=== PATIENT | male | born 1970 | race Caucasian/White ===

== ENCOUNTER 2017-08-02 08:34 | Day surgery (SDC) | payer OTHER ==
[2017-08-02] MEDS ORDERED: DiphenhydrAMINE 50 mg/ml Inj ONE (09:27)
[2017-08-02] MEDS ORDERED: Iodixanol 320 MG/ML 200 ML BOTTLE IV ONE (09:37)
[2017-08-02] MEDS ORDERED: Midazolam 2 MG/2 ML VIAL ONE ×2 (09:46→13:08)
[2017-08-02] MEDS ORDERED: Labetalol 25mg/5ml Syringe ONE (09:48)
[2017-08-02 10:27] VITALS: BMI 29.8
[2017-08-02] MEDS ORDERED: Iodixanol 320 MG/ML 100 ML BOTTLE IV ONE (13:08)
--- NOTE | 2017-08-03 09:26 | VAS ---
DATE: 08/02/2017 INDICATIONS: Mr. Kei Avila is a 46-year-old male who was admitted to [facility] from the wound care center for worsening gangrene of the left fifth digit. The patient underwent CTA which showed high grade disease at the popliteal, anterior tibial, and posterior tibial artery, and therefore brought to the cardiac catheterization technologist for further evaluation and treatment. PROCEDURE PERFORMED: Distal abdominal aortogram with bilateral iliac runoff, selective bilateral iliofemoral angiogram with runoff and right femoral arterial access, and Mynx closure device for hemostasis. ANGIOGRAPHIC FINDINGS: The right common iliac, external iliac is patent. Right profunda femoris is patent, SFA patent with diffuse calcification. Right popliteal artery is patent. Anterior tibial artery patent. Posterior tibial artery patent. Two-vessel runoff [id number] of AT and PT with patent dorsalis pedis arch. Left lower extremity, left common iliac patent. External iliac patent. Profunda femoris patent. SFA patent with moderate calcification. Popliteal artery is patent. Anterior tibial patent. Posterior tibial moderate diffuse disease. AT dorsalis pedis is patent with microvascular disease. IMPRESSION: Moderate calcified superficial femoral artery with no obstructive disease, history of microvascular disease. RECOMMENDATIONS: The patient can proceed with an amputation. Aggressive medical management and risk factor modification. Keep the patient on dual antiplatelet therapy. The patient can be transferred back to [facility] in 3 hours. Luiz Cortes MD
== END 2017-08-02 14:33 | disposition short-term general hospital (02) ==
LOC: C.CATHLAB 08:34
PROVIDERS: ATTEND Internal Medicine Interventional Cardiology
DX: I70.201 Unspecified atherosclerosis of native arteries of extremities, right leg (principal)
CPT/HCPCS: 36247; 75625; 75716; 75774; 82948; C1760; C1769; C1887; C1894; J0360; J1200; J1644; J2250; J2930; J3010; Q9966

== ENCOUNTER 2017-12-13 07:38 | Inpatient (IN) | payer MEDICARE, OTHER ==
[2017-12-13] MEDS ORDERED: Lidocaine 4% (Laryng-O-Jet) Kit MM ONE (08:14)
[2017-12-13 11:39] VITALS: BMI 30.2
[2017-12-13] MEDS ORDERED: Morphine 4 MG/ML VIAL ONE (12:57)
[2017-12-13] MEDS ORDERED: Midazolam 2 MG/2 ML VIAL ONE (12:58)
[2017-12-13] MEDS ORDERED: Lidocaine 2% MPF (5 ml) Inj ONE (13:46)
[2017-12-13] MEDS ORDERED: Iohexol 350mg/ml 100 ML ONE (13:47)
[2017-12-13] MEDS ORDERED: DiphenhydrAMINE 50 mg/ml Inj ONE (13:58)
[2017-12-13 14:37] LABS: ARTERIAL BLOOD GAS HCO3 22.8 mmol/L (21-28); ARTERIAL BLOOD GAS PCO2 27 mm/Hg (35-45); ARTERIAL BLOOD GAS PH 7.47 (7.35-7.45); ARTERIAL BLOOD GAS PO2 69 mm/Hg (80-100); ARTERIAL BLOOD GAS TCO2 20.5 mmol/L (22-28)
[2017-12-13 14:43] LABS: VENOUS BLOOD GAS BASE EXCESS -8.4 mmol/L (0.0-2.0); VENOUS BLOOD GAS PCO2 31 mmHg (40-60); VENOUS BLOOD GAS PO2 42 mm/Hg (30-55); VENOUS BLOOD PH 7.33 (7.32-7.43)
[2017-12-13 14:48] LABS: VENOUS BLOOD GAS BASE EXCESS -9.2 mmol/L (0.0-2.0); VENOUS BLOOD GAS PCO2 29 mmHg (40-60); VENOUS BLOOD GAS PO2 42 mm/Hg (30-55); VENOUS BLOOD PH 7.33 (7.32-7.43)
[2017-12-13 17:02] LABS: BASO # 0.1 K/uL (0.0-0.2); BASO % 0.4 % (0.0-2.0); EOS % 0.2 % (0.0-4.0); HEMOGLOBIN 11.5 g/dL (12.0-18.0); LYMPH # 1.6 K/uL (1.0-4.3); LYMPH % 7.7 % (20.0-40.0); MEAN CELL VOLUME 94.7 fL (80.0-94.0); MEAN CORPUSCULAR HEMOGLOBIN 31.3 pg (27.0-31.0); MEAN CORPUSCULAR HGB CONC 33.1 g/dL (33.0-37.0); MEAN PLATELET VOLUME 10.1 fL (7.2-11.7); MONO # 0.5 K/uL (0.0-0.8); MONO % 2.5 % (0.0-10.0); NEUT # 18.8 K/uL (1.8-7.0); NEUT % 89.2 % (50.0-75.0); NRBC % 0.1 % (0.0-2.0); PLATELET COUNT 178 K/uL (130-400); RBC 3.68 Mil/uL (4.40-5.90); RED CELL DISTRIBUTION WIDTH 15.9 % (11.5-14.5)
[2017-12-13] MEDS ORDERED: Glucagon Recombinant 1 mg Inj IM PRN (17:12)
[2017-12-13] MEDS ORDERED: Dextrose 50% SYRINGE Inj (50 ml) IV PRN (17:12)
[2017-12-13 17:15] LABS: WHITE BLOOD COUNT 21.1 K/uL (4.8-10.8)
--- NOTE | 2017-12-13 17:19 | CP.PCM.HP ---
<Carolina Edwards - Last Filed: 12/13/17 18:29> History of Present Illness - History of Present Illness History of Present Illness: Patient is a 47 yo male with a history of ESRD on HD (TTS), PVD, and T2DM presented to the ED at [facility] with body aches, cough, and nausea. He skipped 2 sessions of HD. He was found to be febrile (102). At [facility], he was being treated for MSSA bacteremia and elevated troponins with suspected endocarditis. He was transferred temporarily to [facility] for cath and KYLAH. Following these procedures, patient strained for BM and code blue was called due to pulseless Vtach. Patient achieved ROSC and became responsive following chest compressions and one defibrillator shock. PMH: ESRD on TTS T2DM- neuropathy PVD HTN Anemia Depression PSH: Right foot TMA Left 4th digit amputation RUE AV shunt Right eye surgery in 1999 Meds: ASA 81 mg PO daily Plavix 75 mg PO daily Metoprolol 25 mg PO daily All: shellfish SH: lives with family former smoker denies alcohol, illicit drug use FH: unknown Present on Admission - Present on Admission Any Indicators Present on Admission: Yes History of DVT/PE: No History of Uncontrolled Diabetes: Yes Urinary Catheter: No Decubitus Ulcer Present: No History Surgical Site Infection Following: None Past Patient History - Infectious Disease Hx of Infectious Diseases: None - Past Medical History & Family History Past Medical History?: Yes - Past Social History Smoking Status: Former Smoker Chewing Tobacco Use: No - CARDIAC Hx Congestive Heart Failure: No Hx Hypercholesterolemia: No Hx Hypertension: Yes - PULMONARY Hx Chronic Obstructive Pulmonary Disease (COPD): No - NEUROLOGICAL Hx Neurological Disorder: Yes Other/Comment: Hx Neuropathy - HEENT Hx HEENT Problems: Yes Hx Cataracts: Yes - RENAL Hx Chronic Kidney Disease: Yes - ENDOCRINE/METABOLIC Hx Hypothyroidism: No - HEMATOLOGICAL/ONCOLOGICAL Hx Human Immunodeficiency Virus (HIV): No - INTEGUMENTARY Hx Dermatological Problems: Yes Other/Comment: Hx Bilateral foot ulcers - MUSCULOSKELETAL/RHEUMATOLOGICAL Hx Arthritis: No Hx Rheumatoid Arthritis: No - GASTROINTESTINAL Hx Gastrointestinal Disorders: No - GENITOURINARY/GYNECOLOGICAL Hx Genitourinary Disorders: No - PSYCHIATRIC Hx Psychophysiologic Disorder: Yes Hx Depression: Yes Hx Substance Use: No - SURGICAL HISTORY Hx Surgeries: Yes Hx Amputation: Yes (Right TMA, Left 4th toe) Hx Cataract Extraction: Yes (Right eye - 2008) Hx Vascular Access Device: Yes (Right arm A-V fistula) Other/Comment: Hx of Insertion and removal of permacth for HD - ANESTHESIA Hx Anesthesia: Yes Hx Anesthesia Reactions: No Hx Malignant Hyperthermia: No Meds Allergies/Adverse Reactions: Allergies Allergy/AdvReac Type Severity Reaction Status Date / Time shellfish Allergy ITCHING Uncoded 12/06/17 05:22 Results - Labs Result Diagrams: 12/13/17 16:54 12/13/17 16:54 Labs: Laboratory Results - last 24 hr 12/13/17 12/13/17 12/13/17 14:33 14:40 14:44 WBC RBC Hgb Hct MCV MCH MCHC RDW Plt Count MPV Neut % (Auto) Lymph % (Auto) [place] % (Auto) Eos % (Auto) Baso % (Auto) Neut # (Auto) Lymph # (Auto) [place] # (Auto) Eos # (Auto) Baso # (Auto) Puncture Site Arterial pCO2 27 L pO2 69 L 42 42 HCO3 22.8 ABG pH 7.47 H ABG Total CO2 20.5 L ABG Base Excess -2.6 L Daniel Test Na VBG pH 7.33 7.33 VBG pCO2 31 L 29 L VBG HCO3 17.7 17.1 VBG Total CO2 17.3 L 16.2 L VBG O2 Sat (Calc) 75.4 H 77.6 H VBG Base Excess -8.4 L -9.2 L VBG Potassium 4.4 4.2 Sodium 136.0 140.0 Chloride 105.0 107.0 Glucose 76 74 L Lactate 1.3 1.3 POC Glucose (mg/dL) Venous Blood Potassium 4.4 4.2 12/13/17 12/13/17 15:03 16:54 WBC 21.1 H RBC 3.68 L Hgb 11.5 L Hct 34.9 L MCV 94.7 H MCH 31.3 H MCHC 33.1 RDW 15.9 H Plt Count 178 MPV 10.1 Neut % (Auto) 89.2 H Lymph % (Auto) 7.7 L [place] % (Auto) 2.5 Eos % (Auto) 0.2 Baso % (Auto) 0.4 Neut # (Auto) 18.8 H Lymph # (Auto) 1.6 [place] # (Auto) 0.5 Eos # (Auto) 0.0 Baso # (Auto) 0.1 Puncture Site pCO2 pO2 HCO3 ABG pH ABG Total CO2 ABG Base Excess Daniel Test VBG pH VBG pCO2 VBG HCO3 VBG Total CO2 VBG O2 Sat (Calc) VBG Base Excess VBG Potassium Sodium Chloride Glucose Lactate POC Glucose (mg/dL) 87 Venous Blood Potassium Assessment & Plan - Assessment and Plan (Free Text) Assessment: Patient is a 47 yo male with history ESRD on HD, T2DM, PVD, and HTN who was admitted to [facility] on 12/06/17 with generalized body aches, fever, and cough. He was found to be septic with positive blood cultures for MSSA. He was transferred to [facility] on 12/13 for cardiac cath due to elevated troponins. Following the completion of the cath, the patient went to have a BM and became unresponsive, pulseless with Vtach. Compressions were started and patient achieved ROSC after one shock. He will be monitored in the ICU at least overnight before transferring back to [facility]. Plan: V tach- s/p code blue following cardiac cath and KYLAH - Presently NSR - s/p cardiac cath on 12/13- 4 vessel disease - No EKG changes - TTE: EF 55-60% - KYLAH reading pending - Metoprolol 25 mg PO BID - ASA 81 mg PO daily - Plavix 75 mg PO daily - Monitor vitals- hypotensive, not on pressors - Cardiology consulted (Sebastian) Elevated troponins - Elevated troponins improving (0.139->0.873->.470) - Heparin drip- monitor PTT Sepsis- MSSA bacteremia, r/o endocarditis - Tmax 102.5- afebrile since 12/11 - Tylenol 650 mg PO Q6H PRN - No leukocytosis - ESR 114, CRP 159.2 - Procal 12.49 - Lactate 2.8 - Blood Cx: MSSA - KYLAH reading pending - Nafcillin 2 g IV Q6H - Vancomycin 1 g IV TTS after HD - ID consulted (Gabriela) Back pain, chronic - Lumbar MRI: L5-S1 disc degeneration, cannot exclude osteomyelitis (rec IV contrast but ESRD) - Pelvis, hip CT: no acute fx - Hip/pelvis XR: L inferior ramus fx - Tylenol 650 mg PO Q6H PRN ESRD on HD- patient missed 2 sessions prior to admission - I's & O's - CMP daily - Replete electrolytes PRN - HD on TTS- HD today 12/13 - Nephrology consulted (Adrian) T2DM- s/p R TMA, L 4th digit amputation - Maintain euglycemia - Hypoglycemic protocol - Accuchecks with ISS ACHS - Wound care consulted - Podiatry consulted (Ricardo) Anemia of chronic disease - Anemia- Hgb (11.5) at baseline - Monitor H&H PPx: VTE: heparin drip GI: PTX 40 mg IV daily Code status: full code Case discussed with attending, Dr. Palacios. PGY-1 Carolina Edwards D.O. Decision To Admit - . Bed Request Type: ICU Admitting Physician: Varun Palacios <Varun Palacios - Last Filed: 12/13/17 20:01> Results - Vital Signs Recent Vital Signs: Last Vital Signs Temp Pulse 78 12/13/17 17:19 Resp 16 12/13/17 17:19 BP 94/53 L 12/13/17 18:30 Pulse Ox 100 12/13/17 17:19 - Labs Result Diagrams: 12/13/17 16:54 12/13/17 16:54 Labs: Laboratory Results - last 24 hr 12/13/17 12/13/17 12/13/17 14:33 14:40 14:44 WBC RBC Hgb Hct MCV MCH MCHC RDW Plt Count MPV Neut % (Auto) Lymph % (Auto) [place] % (Auto) Eos % (Auto) Baso % (Auto) Neut # (Auto) Lymph # (Auto) [place] # (Auto) Eos # (Auto) Baso # (Auto) Neutrophils % (Manual) Band Neutrophils % Lymphocytes % (Manual) Monocytes % (Manual) Myelocytes % Platelet Estimate Anisocytosis (manual) PT INR APTT Puncture Site Arterial pCO2 27 L pO2 69 L 42 42 HCO3 22.8 ABG pH 7.47 H ABG Total CO2 20.5 L ABG Base Excess -2.6 L Daniel Test Na VBG pH 7.33 7.33 VBG pCO2 31 L 29 L VBG HCO3 17.7 17.1 VBG Total CO2 17.3 L 16.2 L VBG O2 Sat (Calc) 75.4 H 77.6 H VBG Base Excess -8.4 L -9.2 L VBG Potassium 4.4 4.2 Sodium 136.0 140.0 Chloride 105.0 107.0 Glucose 76 74 L Lactate 1.3 1.3 Potassium Carbon Dioxide Anion Gap BUN Creatinine Est GFR ( Amer) Est GFR (Non-Af Amer) POC Glucose (mg/dL) Random Glucose Calcium Total Bilirubin AST ALT Alkaline Phosphatase Troponin I Total Protein Albumin Globulin Albumin/Globulin Ratio Venous Blood Potassium 4.4 4.2 12/13/17 12/13/17 12/13/17 15:03 16:54 16:54 WBC RBC Hgb Hct MCV MCH MCHC RDW Plt Count MPV Neut % (Auto) Lymph % (Auto) [place] % (Auto) Eos % (Auto) Baso % (Auto) Neut # (Auto) Lymph # (Auto) [place] # (Auto) Eos # (Auto) Baso # (Auto) Neutrophils % (Manual) Band Neutrophils % Lymphocytes % (Manual) Monocytes % (Manual) Myelocytes % Platelet Estimate Anisocytosis (manual) PT 14.1 H INR 1.3 APTT 42 H Puncture Site pCO2 pO2 HCO3 ABG pH ABG Total CO2 ABG Base Excess Daniel Test VBG pH VBG pCO2 VBG HCO3 VBG Total CO2 VBG O2 Sat (Calc) VBG Base Excess VBG Potassium Sodium 134 Chloride 94 L Glucose Lactate Potassium 5.7 H Carbon Dioxide 17 L Anion Gap 29 H BUN 69 H Creatinine 9.5 H* Est GFR ( Amer) 7 Est GFR (Non-Af Amer) 6 POC Glucose (mg/dL) 87 Random Glucose 149 H Calcium 7.8 L Total Bilirubin 11.0 H AST 30 ALT 8 L Alkaline Phosphatase 211 H Troponin I Total Protein 7.7 Albumin 3.3 L Globulin 4.3 H Albumin/Globulin Ratio 0.8 L Venous Blood Potassium 12/13/17 12/13/17 16:54 16:57 WBC 21.1 H RBC 3.68 L Hgb 11.5 L Hct 34.9 L MCV 94.7 H MCH 31.3 H MCHC 33.1 RDW 15.9 H Plt Count 178 MPV 10.1 Neut % (Auto) 89.2 H Lymph % (Auto) 7.7 L [place] % (Auto) 2.5 Eos % (Auto) 0.2 Baso % (Auto) 0.4 Neut # (Auto) 18.8 H Lymph # (Auto) 1.6 [place] # (Auto) 0.5 Eos # (Auto) 0.0 Baso # (Auto) 0.1 Neutrophils % (Manual) 88 H Band Neutrophils % 3 H Lymphocytes % (Manual) 6 L Monocytes % (Manual) 2 Myelocytes % 1 H Platelet Estimate Normal Anisocytosis (manual) Slight PT INR APTT Puncture Site pCO2 pO2 HCO3 ABG pH ABG Total CO2 ABG Base Excess Daniel Test VBG pH VBG pCO2 VBG HCO3 VBG Total CO2 VBG O2 Sat (Calc) VBG Base Excess VBG Potassium Sodium Chloride Glucose Lactate Potassium Carbon Dioxide Anion Gap BUN Creatinine Est GFR ( Amer) Est GFR (Non-Af Amer) POC Glucose (mg/dL) Random Glucose Calcium Total Bilirubin AST ALT Alkaline Phosphatase Troponin I 0.4700 H* Total Protein Albumin Globulin Albumin/Globulin Ratio Venous Blood Potassium Attending/Attestation - Attestation I have personally seen and examined this patient.: Yes I have fully participated in the care of the patient.: Yes I have reviewed all pertinent clinical information: Yes Notes (Text): Patient was seen and examined in the ICU with the ICU resident Patient is alert and oriented x3.no focal weakness s/p Cardiac cath and KYLAH today. 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 He went into [place].Found unresponsive without pulse. one shock was give at 200J patient responded got pulse back. RR with acceptable BP.Patient started talking immediately after shock 1.VT ,pulseless/s/p shock with 200j once spoke to DR Cortes 2.S/p Cath today showed 4 vessel disease. s/p KYLAH to rule out vegetation 3.Staph MSSA bacteremia on nafcillin 2g q6 and vanco TIW after dialysis CT shows discitis,follow KYLAH report 4.Troponin elevation continue asprin,plavix,heparin and metoprolol 5.DM 6.anemia 7.ESRD on HD 8.Right foot TMA,left foot callus,blister left hand cellulitis/likely due to infiltrated IV line ? 9.anemia Assessment and the plan discussed with the resident and I agree with the documentation
[2017-12-13 17:20] LABS: INR 1.3; PROTHROMBIN TIME 14.1 SECONDS (9.7-12.2)
[2017-12-13] MEDS ORDERED: Heparin25000 units/250ml 1/2NS 25,000 UNITS/250 ML BAG IV PRN (17:20)
--- NOTE | 2017-12-13 17:23 | CP.PCM.CON ---
<JerryMaryCarolina - Last Filed: 12/13/17 17:59> History of Present Illness - History of Present Illness History of Present Illness: Patient is a 47 yo male with a history of ESRD on HD (TTS), PVD, and T2DM presented to the ED at [facility] with body aches, cough, and nausea. He skipped 2 sessions of HD. He was found to be febrile (102). At [facility], he was being treated for MSSA bacteremia and elevated troponins with suspected endocarditis. He was transferred temporarily to [facility] for cath and KYLA[facility]. Following these procedures, patient strained for BM and code blue was called due to pulseless Vtach. Patient achieved ROSC and became responsive following chest compressions and one defibrillator shock. 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 absent: Fever, Headache - EENT Eyes: absent: Change in Vision Ears: absent: Decreased Hearing Nose/Mouth/Throat: absent: Nasal Congestion, Sore Throat - Cardiovascular Cardiovascular: absent: Chest Pain, Dyspnea, Palpitations - Respiratory Respiratory: absent: Dyspnea - Gastrointestinal Gastrointestinal: absent: Abdominal Pain - Genitourinary Genitourinary: absent: Dysuria - Musculoskeletal Musculoskeletal: Back Pain - Integumentary Integumentary: absent: Lesions - Endocrine Endocrine: Fatigue Past Patient History - Infectious Disease Hx of Infectious Diseases: None - Past Medical History & Family History Past Medical History?: Yes Past Family History: Reviewed and not pertinent - Past Social History Smoking Status: Former Smoker Chewing Tobacco Use: No Cigar Use: No Alcohol: None Drugs: Denies Home Situation {Lives}: With Family - CARDIAC Hx Congestive Heart Failure: No Hx Hypercholesterolemia: No Hx Hypertension: Yes - PULMONARY Hx Chronic Obstructive Pulmonary Disease (COPD): No - NEUROLOGICAL Hx Neurological Disorder: Yes Other/Comment: Hx Neuropathy - HEENT Hx HEENT Problems: Yes Hx Cataracts: Yes - RENAL Hx Chronic Kidney Disease: Yes - ENDOCRINE/METABOLIC Hx Hypothyroidism: No - HEMATOLOGICAL/ONCOLOGICAL Hx Human Immunodeficiency Virus (HIV): No - INTEGUMENTARY Hx Dermatological Problems: Yes Other/Comment: Hx Bilateral foot ulcers - MUSCULOSKELETAL/RHEUMATOLOGICAL Hx Arthritis: No Hx Rheumatoid Arthritis: No - GASTROINTESTINAL Hx Gastrointestinal Disorders: No - GENITOURINARY/GYNECOLOGICAL Hx Genitourinary Disorders: No - PSYCHIATRIC Hx Psychophysiologic Disorder: Yes Hx Depression: Yes Hx Substance Use: No - SURGICAL HISTORY Hx Surgeries: Yes Hx Amputation: Yes (Right TMA, Left 4th toe) Hx Cataract Extraction: Yes (Right eye - 2008) Hx Vascular Access Device: Yes (Right arm A-V fistula) Other/Comment: Hx of Insertion and removal of permacth for HD - ANESTHESIA Hx Anesthesia: Yes Hx Anesthesia Reactions: No Hx Malignant Hyperthermia: No Meds Allergies/Adverse Reactions: Allergies Allergy/AdvReac Type Severity Reaction Status Date / Time shellfish Allergy ITCHING Uncoded 12/06/17 05:22 - Medications Medications: Current Medications Aspirin (Ecotrin) 81 mg PO DAILY LOYDA Clopidogrel Bisulfate (Plavix) 75 mg PO DAILY LOYDA Heparin Sodium/Sodium Chloride (Heparin 34149 Units/250ml 1/2 Normal Saline) 25,000 units in 250 mls @ 8.092 mls/hr IV .Q24H PRN; Protocol PRN Reason: PROTOCOL Physical Exam - Head Exam Head Exam: ATRAUMATIC, NORMAL INSPECTION, NORMOCEPHALIC - Eye Exam Eye Exam: EOMI, Normal appearance, PERRL - ENT Exam ENT Exam: Mucous Membranes Moist - Neck Exam Neck exam: Positive for: Normal Inspection - Respiratory Exam Respiratory Exam: Clear to Auscultation Bilateral, NORMAL BREATHING PATTERN - Cardiovascular Exam Cardiovascular Exam: REGULAR RHYTHM, +S1, +S2 - GI/Abdominal Exam GI & Abdominal Exam: Normal Bowel Sounds, Soft. absent: Tenderness - Rectal Exam Rectal Exam: NORMAL INSPECTION - Extremities Exam Additional comments: LUE edema, ecchymosis on dorsal surface of hand RUE AV fistula, 2 nodular elevations, nontender LLE L 4th digit amputation, R TMA b/l LE skin changes 2/2 PVD - Neurological Exam Neurological exam: Alert, CN II-XII Intact, Oriented x3 - Psychiatric Exam Psychiatric exam: Normal Affect, Normal Mood - Skin Skin Exam: Dry, Normal Color, Warm Results - Labs Result Diagrams: 12/13/17 16:54 12/13/17 16:54 Labs: Laboratory Results - last 24 hr 12/13/17 12/13/17 12/13/17 14:33 14:40 14:44 WBC RBC Hgb Hct MCV MCH MCHC RDW Plt Count MPV Neut % (Auto) Lymph % (Auto) Saline % (Auto) Eos % (Auto) Baso % (Auto) Neut # (Auto) Lymph # (Auto) Saline # (Auto) Eos # (Auto) Baso # (Auto) Puncture Site Arterial pCO2 27 L pO2 69 L 42 42 HCO3 22.8 ABG pH 7.47 H ABG Total CO2 20.5 L ABG Base Excess -2.6 L Daniel Test Na VBG pH 7.33 7.33 VBG pCO2 31 L 29 L VBG HCO3 17.7 17.1 VBG Total CO2 17.3 L 16.2 L VBG O2 Sat (Calc) 75.4 H 77.6 H VBG Base Excess -8.4 L -9.2 L VBG Potassium 4.4 4.2 Sodium 136.0 140.0 Chloride 105.0 107.0 Glucose 76 74 L Lactate 1.3 1.3 POC Glucose (mg/dL) Venous Blood Potassium 4.4 4.2 12/13/17 12/13/17 15:03 16:54 WBC 21.1 H RBC 3.68 L Hgb 11.5 L Hct 34.9 L MCV 94.7 H MCH 31.3 H MCHC 33.1 RDW 15.9 H Plt Count 178 MPV 10.1 Neut % (Auto) 89.2 H Lymph % (Auto) 7.7 L Saline % (Auto) 2.5 Eos % (Auto) 0.2 Baso % (Auto) 0.4 Neut # (Auto) 18.8 H Lymph # (Auto) 1.6 Saline # (Auto) 0.5 Eos # (Auto) 0.0 Baso # (Auto) 0.1 Puncture Site pCO2 pO2 HCO3 ABG pH ABG Total CO2 ABG Base Excess Daniel Test VBG pH VBG pCO2 VBG HCO3 VBG Total CO2 VBG O2 Sat (Calc) VBG Base Excess VBG Potassium Sodium Chloride Glucose Lactate POC Glucose (mg/dL) 87 Venous Blood Potassium Assessment & Plan - Assessment and Plan (Free Text) Assessment: Patient is a 47 yo male with history ESRD on HD, T2DM, PVD, and HTN who was admitted to [facility] on 12/06/17 with generalized body aches, fever, and cough. He was found to be septic with positive blood cultures for MSSA. He was transferred to [facility] on 12/13 for cardiac cath due to elevated troponins. Following the completion of the cath, the patient went to have a BM and became unresponsive, pulseless with Vtach. Compressions were started and patient achieved ROSC after one shock. He will be monitored in the ICU at least overnight before transferring back to [facility]. Plan: Neuro: - No acute issues- recent AMS during [facility] admission - CT head: no acute findings - Monitor mental status- post code blue CV: - s/p PARA EDUCATOR/code blue- Vtach - Elevated troponins improving (0.139->0.873->.470) - Heparin drip- monitor PTT - s/p cardiac cath on 12/13- 4 vessel disease - No EKG changes - TTE: EF 55-60% - KYLAH reading pending - Metoprolol 25 mg PO BID - ASA 81 mg PO daily - Plavix 75 mg PO daily - Monitor vitals- hypotensive, not on pressors - Cardiology consulted (Sebastian) Pulm: - CXR: - Maintain spO2>92%- supplemental O2 PRN - ABG : pH 7.26, pCO2 42, pO2 27, lactate 2.8 GI: - Heart healthy diet : - I's & O's - CMP daily - Replete electrolytes PRN - HD on TTS - Nephrology consulted (Adrian) Endo: - Maintain euglycemia - Hypoglycemic protocol - Accuchecks with ISS ACHS Heme: - Anemia- Hgb (11.5) at baseline - Monitor H&H ID: Sepsis (MSSA bacteremia)- r/o endocarditis - Tmax 102.5- afebrile since 12/11 - Tylenol 650 mg PO Q6H PRN - No leukocytosis - ESR 114, CRP 159.2 - Procal 12.49 - Lactate 2.8 - Blood Cx: MSSA - KYLAH reading pending - Nafcillin 2 g IV Q6H - Vancomycin 1 g IV TTS after HD - ID consulted (Gabriela) Integumentary: - Wound care consulted - Podiatry consulted (Ricardo) MSK: - Lumbar MRI: L5-S1 disc degeneration, cannot exclude osteomyelitis (rec IV contrast but ESRD) - Pelvis, hip CT: no acute fx - Hip/pelvis XR: L inferior ramus fx PPx: VTE: heparin drip GI: PTX 40 mg IV daily Code status: full code Case discussed with attending, Dr. Guillen. PGY-1 Carolnia Edwards D.O. <Charline Guillen - Last Filed: 12/13/17 19:32> Meds - Medications Medications: Current Medications Acetaminophen (Tylenol 325mg Tab) 650 mg PO Q6 PRN PRN Reason: Fever >100.4 F or Pain Aspirin (Ecotrin) 81 mg PO DAILY LOYDA Clopidogrel Bisulfate (Plavix) 75 mg PO DAILY [facility] Dextrose (Dextrose 50% Inj) 0 ml IV STAT PRN; Protocol PRN Reason: Hypoglycemia Protocol Dextrose (Glutose 15) 0 gm PO ONCE PRN; Protocol PRN Reason: Hypoglycemia Protocol Famotidine (Pepcid) 40 mg PO DAILY [facility] Heparin Sodium/Sodium Chloride (Heparin 14229 Units/250ml 1/2 Normal Saline) 25,000 units in 250 mls @ 8.092 mls/hr IV .Q24H PRN; Protocol PRN Reason: PROTOCOL Last Admin: 12/13/17 18:49 Dose: 8 units/kg/hr, 8.092 mls/hr Dextrose (Dextrose 5% In Water 1000 Ml) 1,000 mls @ 0 mls/hr IV .Q0M PRN; Protocol PRN Reason: Hypoglycemia Protocol Nafcillin Sodium 2 gm/ Sodium (Chloride) 250 mls @ 250 mls/hr IVPB Q6H LOYDA; Protocol Last Admin: 12/13/17 18:59 Dose: Not Given Vancomycin/Sodium Chloride (Vancomycin 1 Gm/Ns 200 Ml) 1 gm in 200 mls @ 133.333 mls/hr IVPB TTS LOYDA; Protocol Stop: 12/19/17 10:01 Insulin Human Regular (Novolin R) 0 unit SC ACHS [facility]; Protocol Metoprolol Tartrate (Lopressor) 25 mg PO BID [facility] Last Admin: 12/13/17 18:30 Dose: Not Given Sevelamer Carbonate (Renvela) 1,600 mg PO TIDCC [facility] Vitamin B Complex/Vit C/Folic Acid (Nephro-Joesph) 1 tab PO 0800 [facility] Results - Vital Signs Recent Vital Signs: Last Vital Signs Temp Pulse 78 12/13/17 17:19 Resp 16 12/13/17 17:19 BP 94/53 L 12/13/17 18:30 Pulse Ox 100 12/13/17 17:19 - Labs Result Diagrams: 12/13/17 16:54 12/13/17 16:54 Labs: Laboratory Results - last 24 hr 12/13/17 12/13/17 12/13/17 14:33 14:40 14:44 WBC RBC Hgb Hct MCV MCH MCHC RDW Plt Count MPV Neut % (Auto) Lymph % (Auto) Saline % (Auto) Eos % (Auto) Baso % (Auto) Neut # (Auto) Lymph # (Auto) Saline # (Auto) Eos # (Auto) Baso # (Auto) Neutrophils % (Manual) Band Neutrophils % Lymphocytes % (Manual) Monocytes % (Manual) Myelocytes % Platelet Estimate Anisocytosis (manual) PT INR APTT Puncture Site Arterial pCO2 27 L pO2 69 L 42 42 HCO3 22.8 ABG pH 7.47 H ABG Total CO2 20.5 L ABG Base Excess -2.6 L Daniel Test Na VBG pH 7.33 7.33 VBG pCO2 31 L 29 L VBG HCO3 17.7 17.1 VBG Total CO2 17.3 L 16.2 L VBG O2 Sat (Calc) 75.4 H 77.6 H VBG Base Excess -8.4 L -9.2 L VBG Potassium 4.4 4.2 Sodium 136.0 140.0 Chloride 105.0 107.0 Glucose 76 74 L Lactate 1.3 1.3 Potassium Carbon Dioxide Anion Gap BUN Creatinine Est GFR ( Amer) Est GFR (Non-Af Amer) POC Glucose (mg/dL) Random Glucose Calcium Total Bilirubin AST ALT Alkaline Phosphatase Troponin I Total Protein Albumin Globulin Albumin/Globulin Ratio Venous Blood Potassium 4.4 4.2 12/13/17 12/13/17 12/13/17 15:03 16:54 16:54 WBC RBC Hgb Hct MCV MCH MCHC RDW Plt Count MPV Neut % (Auto) Lymph % (Auto) Saline % (Auto) Eos % (Auto) Baso % (Auto) Neut # (Auto) Lymph # (Auto) Saline # (Auto) Eos # (Auto) Baso # (Auto) Neutrophils % (Manual) Band Neutrophils % Lymphocytes % (Manual) Monocytes % (Manual) Myelocytes % Platelet Estimate Anisocytosis (manual) PT 14.1 H INR 1.3 APTT 42 H Puncture Site pCO2 pO2 HCO3 ABG pH ABG Total CO2 ABG Base Excess Daniel Test VBG pH VBG pCO2 VBG HCO3 VBG Total CO2 VBG O2 Sat (Calc) VBG Base Excess VBG Potassium Sodium 134 Chloride 94 L Glucose Lactate Potassium 5.7 H Carbon Dioxide 17 L Anion Gap 29 H BUN 69 H Creatinine 9.5 H* Est GFR ( Amer) 7 Est GFR (Non-Af Amer) 6 POC Glucose (mg/dL) 87 Random Glucose 149 H Calcium 7.8 L Total Bilirubin 11.0 H AST 30 ALT 8 L Alkaline Phosphatase 211 H Troponin I Total Protein 7.7 Albumin 3.3 L Globulin 4.3 H Albumin/Globulin Ratio 0.8 L Venous Blood Potassium 12/13/17 12/13/17 16:54 16:57 WBC 21.1 H RBC 3.68 L Hgb 11.5 L Hct 34.9 L MCV 94.7 H MCH 31.3 H MCHC 33.1 RDW 15.9 H Plt Count 178 MPV 10.1 Neut % (Auto) 89.2 H Lymph % (Auto) 7.7 L Saline % (Auto) 2.5 Eos % (Auto) 0.2 Baso % (Auto) 0.4 Neut # (Auto) 18.8 H Lymph # (Auto) 1.6 Saline # (Auto) 0.5 Eos # (Auto) 0.0 Baso # (Auto) 0.1 Neutrophils % (Manual) 88 H Band Neutrophils % 3 H Lymphocytes % (Manual) 6 L Monocytes % (Manual) 2 Myelocytes % 1 H Platelet Estimate Normal Anisocytosis (manual) Slight PT INR APTT Puncture Site pCO2 pO2 HCO3 ABG pH ABG Total CO2 ABG Base Excess Daniel Test VBG pH VBG pCO2 VBG HCO3 VBG Total CO2 VBG O2 Sat (Calc) VBG Base Excess VBG Potassium Sodium Chloride Glucose Lactate Potassium Carbon Dioxide Anion Gap BUN Creatinine Est GFR ( Amer) Est GFR (Non-Af Amer) POC Glucose (mg/dL) Random Glucose Calcium Total Bilirubin AST ALT Alkaline Phosphatase Troponin I 0.4700 H* Total Protein Albumin Globulin Albumin/Globulin Ratio Venous Blood Potassium Attending/Attestation - Attestation I have personally seen and examined this patient.: Yes I have fully participated in the care of the patient.: Yes I have reviewed all pertinent clinical information: Yes Notes (Text): 12/13/17 19:32 admit to icu betablocker cardio f/u renal f/u
--- NOTE | 2017-12-13 17:26 | PCM.RRT ---
<Raciel Ackerman - Last Filed: 12/13/17 17:24> - Constitutional Appears: In Acute Distress - Head Head Exam: ATRAUMATIC, NORMAL INSPECTION - Eyes Eye Exam: EOMI, Normal appearance - Respiratory Exam Respiratory Exam: Clear to Ausculation Bilateral. absent: Rhonchi, Wheezes - Cardiovascular Exam Cardiovascular Exam: Tachycardia, +S1, +S2. absent: Murmur - GI/Abdominal Exam GI & Abdominal Exam: Soft. absent: Tenderness - Neurological Exam Neurological Exam: Alert, Awake, CN II-XII Intact - Extremities Exam Extremities Exam: absent: Pedal Edema, Tenderness Plan - Assessment of Findings&Treatment Plan JAVA ANDROID DEVELOPER called 16: 32 Vitals on arrival: 213/113 HR 113 100% on NRB Afebrile JAVA ANDROID DEVELOPER was called which subsequently was called as a code blue at 16:32. Patient had just come out of the wastewater analyst lab analyst and stated that he need to have a bowel movement. Cath nurse placed commode on patient's bed and once the patient began to strain he subsequently was found to be in V tach on the cardiac exercise physiologist. As soon as the monitor showed V tach, the patient began shaking Patient was unresponsive, not breathing, and pulseless. Compressions were begun immediately and AICD pads applied. Once defibrillator registered a shockable rhythm, compressions were halted and shock was applied. Following shock, patient immediately achieved ROSC. By the time JAVA ANDROID DEVELOPER team arrived to the scene, the patient was responsive and following commands. Labs were ordered including VBG shock panel, CBC, CMP, mag, and phos. Patient was moved to the ICU for further care and monitoring. <Varun Palacios - Last Filed: 12/13/17 20:01> Attending/Attestation - Attestation I have personally seen and examined this patient.: Yes I have fully participated in the care of the patient.: Yes I have reviewed all pertinent clinical information, including history, physical exam and plan: Yes
[2017-12-13 17:27] LABS: ALB/GLOB RATIO 0.8 (1.0-2.1); ALBUMIN 3.3 g/dL (3.5-5.0); CALCIUM 7.8 mg/dl (8.6-10.4)
[2017-12-13 17:37] LABS: BANDS 3 % (0-2); LYMPHOCYTE 6 % (20-40); MONOCYTE 2 % (0-10); MYELOCYTE 1 % (0-0); NEUTROPHIL 88 % (50-75); PLATELET ESTIMATE NORMAL (NORMAL); TOTAL CELLS COUNTED 100
[2017-12-13 17:39] LABS: ANISOCYTOSIS SLIGHT
[2017-12-13] MEDS ORDERED: Glucagon Recombinant 1 mg Inj IM ONE (17:45)
--- NOTE | 2017-12-13 18:19 | RAD ---
HISTORY: post cardiac arrest COMPARISON: No prior. TECHNIQUE: Chest, one view. FINDINGS: LUNGS: Central vascular prominence. Suspect patchy infiltrate or atelectasis at the right hilar/infrahilar region. Mild pulmonary venous congestion. Please note that chest x-ray has limited sensitivity for the detection of pulmonary masses. PLEURA: No significant pleural effusion identified. No definite pneumothorax . CARDIOVASCULAR: Cardiomegaly. No significant atherosclerotic calcification present. OSSEOUS STRUCTURES: No acute osseous abnormality identified. VISUALIZED UPPER ABDOMEN: Unremarkable. OTHER FINDINGS: None. IMPRESSION: Cardiomegaly. Central vascular prominence. Mild pulmonary venous congestion. Suspect patchy infiltrate or atelectasis at the right hilar/infrahilar region.
[2017-12-13] MEDS: (Novolin R) Insulin Human Regular 100 units/ml vial SC SCH (22:00)
[2017-12-14] MEDS: Heparin25000 units/250ml 1/2NS 25,000 UNITS/250 ML BAG IV PRN ×2 (01:28→18:33)
--- NOTE | 2017-12-14 04:32 | PCM.FALL ---
Post Fall Progress Note - Post Fall Fall Date: 12/14/17 Fall Time: 04:05 Description of Fall: Patient woke up thinking he was at home and attempted to get out of bed when his IV lines prevented him from doing so. Patient then slid from his bed down to the floor onto his buttock. Patient denies dizziness, lightheadedness, chest pain, shortness of breath, confusion, head trauma. - Post Fall Exam Vital Sign: Temp Pulse Resp BP Pulse Ox 97.9 F 78 17 108/68 85 L 12/14/17 00:00 12/14/17 03:00 12/14/17 03:00 12/14/17 00:16 12/14/17 02:00 Skull Exam: Negative for: Scalp wound, Scalp hematoma Eye Exam: Positive for: Pupils equal (constricted, but equal), Pupils reactive Ear Exam: Negative for: Discharge Nose Exam: Negative for: Discharge, Bleeding Skin Exam: Positive for: Bruising (old brusing to R flank). Negative for: Colour, Lacerations, Grazes Mouth Exam: Negative for: Tongue bitten, Teeth dislodge Neck Exam: Negative for: Tenderness, Tingling, Weakness Spinal Exam: Negative for: Tenderness, Tingling, Weakness Chest Exam: Negative for: Difficulty breathing, Tenderness in collar bones, Tenderness in ribs Abdomen Exam: Negative for: Tenderness Pelvic Exam: Positive for: Tenderness (tenderness to palpation of R buttock. No ecchymoses, laceration, abrasion, or lession noted). Negative for: Hematuria Arm Exam: Negative for: Deformity, Alteration in range of movement Leg Exam: Positive for: Deformity (s/p R partial foot amputation). Negative for: Alteration in range of movement Impression/Plan: House doctor note. Mitchel star was called for patient at 4:05AM. Nurse heard a mild thump and discovered patient sitting on floor with back against his bed by nurse. Initial vitals: 82 HR, BP 114/71, RR 10 O2 saturation 98% on room air. Patient states he awoke thinking he was at home and attempted to get out of bed when his IV lines pulled him back from getting up. Patient then slid from his bed down to the floor onto his buttock. Patient denies head trauma, loss of consciousness, dizziness, and lightheadedness.
--- NOTE | 2017-12-14 06:53 | CARDCATH ---
PROCEDURE DATE: 12/13/2017 INDICATIONS: Mr. Avila is a 47-year-old male who presented to [facility] with complaints of low back pain. The patient was bacteremic with Staph aureus bacteremia and was concerned for possible endocarditis. He was initiated on IV antibiotics and had non-ST elevation CT with positive troponins. He was therefore brought to the laboratory animal caretaker for further evaluation and treatment. PROCEDURE PERFORMED: Complete heart catheterization with right and left heart catheterizations. Right heart catheterization with hemodynamics. Left heart catheterization with selective left and right coronary angiogram, left ventriculogram, 6-[place] Islander right femoral arterial access, 7-[place] Islander right femoral venous access, Mynx closure device for hemostasis. HEMODYNAMIC FINDINGS. The right atrial mean pressure is 25 mmHg, RV is 74/10 with RVEDP of 25, pulmonary artery pressure is with a mean of 38. Pulmonary capillary wedge pressure was 37. CORONARY ANATOMY: Left main is a large-sized vessel that bifurcates into LAD and circumflex. Left main has a distal calcific 50% stenosis. LAD is diffusely calcified, proximal high grade 70% to 80% with a mid high grade 95% stenosis. Left circumflex runs in the AV groove, has proximal 60% stenosis, RCA is diffusely calcified, distal 55% stenosis, LVEF 45%. IMPRESSION: Severe left anterior descending calcified stenosis, moderate proximal circumflex disease, moderate distal right coronary artery disease, mild left ventricular systolic dysfunction. RECOMMENDATIONS: The patient is to be transferred back to [facility]. No evidence of vegetations was diagnosed on the KYLAH. Cardiac cath reveals severely elevated filling pressure, mild LV systolic dysfunction, severe LAD calcified stenosis. The patient is to be scheduled for staged intervention of the LAD using atherectomy device. Luiz Cortes MD
[2017-12-14 07:34] LABS: BASO # 0.1 K/uL (0.0-0.2); BASO % 0.5 % (0.0-2.0); HEMOGLOBIN 9.9 g/dL (12.0-18.0); LYMPH # 0.6 K/uL (1.0-4.3); LYMPH % 4.1 % (20.0-40.0); MEAN CELL VOLUME 93.5 fL (80.0-94.0); MEAN CORPUSCULAR HEMOGLOBIN 32.2 pg (27.0-31.0); MEAN CORPUSCULAR HGB CONC 34.5 g/dL (33.0-37.0); MEAN PLATELET VOLUME 9.8 fL (7.2-11.7); MONO # 0.7 K/uL (0.0-0.8); MONO % 4.3 % (0.0-10.0); NEUT % 91.1 % (50.0-75.0); PLATELET COUNT 160 K/uL (130-400); RBC 3.08 Mil/uL (4.40-5.90); RED CELL DISTRIBUTION WIDTH 15.6 % (11.5-14.5); WHITE BLOOD COUNT 15.4 K/uL (4.8-10.8)
[2017-12-14] MEDS: (Novolin R) Insulin Human Regular 100 units/ml vial SC SCH ×4 (07:41→21:18)
[2017-12-14] MEDS: Multivitamin Vitamin B Complex (Nephro-Vite) Tab PO SCH (07:42)
--- NOTE | 2017-12-14 07:42 | RAD ---
Date of service: 12/14/2017 PROCEDURE: Radiographs of the pelvis. HISTORY: s/p fall COMPARISON: None. FINDINGS: BONES: Pelvic Bones: Unremarkable. Hips: Grossly unremarkable. JOINTS: Sacroiliac Joints: Unremarkable. Pubic Symphysis: Unremarkable. Bilateral hip arthrosis. OTHER FINDINGS: L5-S1 facet hypertrophic and sclerotic arthrosis noted. Stool retention. Atherosclerotic vascular calcifications present. IMPRESSION: No fracture or dislocation appreciated. Other findings as above.
[2017-12-14 07:50] LABS: INR 1.3; PROTHROMBIN TIME 14.1 SECONDS (9.7-12.2)
--- NOTE | 2017-12-14 08:21 | CP.CCUPN ---
<Carolina Edwards - Last Filed: 12/14/17 13:09> CCU Subjective - Physician Review Events Since Last Encounter (Free Text): 12/14/17 08:19 code star over night- patient slid out of bed, thought he was home, no injuries Subjective (Free Text): 12/14/17 08:20 Patient was seen and examined this morning. No acute complaints. no chest pain. Chronic back pain. Patient may transfer to [place] for heart surgery. Critical Care Time Spent (in minutes): 35 CCU Objective - Vital Signs / Intake & Output Vital Signs (Last 4 hours): Vital Signs Temp Pulse Resp BP Pulse Ox 12/14/17 08:00 97.4 F L 98 12/14/17 07:51 63 12 95/53 L 99 12/14/17 07:50 63 12 100 12/14/17 07:40 61 13 99 12/14/17 07:39 61 13 98 12/14/17 07:37 62 13 100 12/14/17 07:30 62 17 97 12/14/17 07:20 60 14 98 12/14/17 07:10 59 L 12 98 12/14/17 07:00 60 13 98 12/14/17 06:40 63 11 L 100 12/14/17 06:30 73 17 98 12/14/17 06:20 71 16 93 L 12/14/17 06:10 75 14 91 L 12/14/17 06:00 76 15 98 12/14/17 05:50 79 14 98 12/14/17 05:45 79 15 98/62 L 95 12/14/17 05:40 79 13 98 12/14/17 05:30 79 16 98 12/14/17 05:20 79 16 95 12/14/17 05:10 79 19 95 12/14/17 05:00 80 11 L 97 12/14/17 04:50 79 16 97 12/14/17 04:40 81 17 96 12/14/17 04:30 82 13 96 12/14/17 04:20 84 15 114/71 Intake and Output (Last 8hrs): Intake & Output 12/13/17 12/14/17 12/14/17 22:59 06:59 14:59 Intake Total 42 454.5 70.2 Output Total 0 0 Balance 42 454.5 70.2 Weight 109 lb 12.8 oz 232 lb 3.2 oz Intake: Intake, IV Amount 42 334.5 20.2 Left Antecubital 42 84.5 20.2 left ac 2nd port 250 Oral 0 120 50 Output: Urine 0 Urine, Voided 0 Emesis 0 Other: Voiding Method Urinal # Voids Urine, Voided 0 0 # Bowel Movements 0 0 - Physical Exam Head: Positive for: Atraumatic, Normocephalic Pupils: Positive for: PERRL Extroacular Muscles: Positive for: EOMI Conjunctiva: Positive for: Normal Mouth: Positive for: Moist Mucous Membranes Neck: Positive for: Normal Range of Motion Respiratory/Chest: Positive for: Clear to Auscultation, Good Air Exchange. Negative for: Respiratory Distress, Accessory Muscle Use Cardiovascular: Positive for: Regular Rate and Rhythm, Normal S1, S2. Negative for: Murmurs Abdomen: Negative for: Tenderness, Distention, Peritoneal Signs Upper Extremity: Positive for: Other (LUE edema, ecchymosis on dorsal surface of hand, RUE AV fistula, 2 nodular elevations, nontender) Lower Extremity: Positive for: Other (LLE L 4th digit amputation, R TMA, b/l LE skin changes 2/2 PVD) Neurological: Positive for: GCS=15, CN II-XII Intact, Speech Normal Skin: Positive for: Warm, Dry, Normal Color. Negative for: Rashes - Medications Active Medications: Active Medications Generic Name Dose Route Start Last Admin Trade Name Freq PRN Reason Stop Dose Admin Acetaminophen 650 mg 12/13/17 17:42 12/14/17 04:33 Tylenol 325mg Tab PO 650 mg Q6 PRN Administration Fever >100.4 F or Pain Aspirin 81 mg 12/14/17 10:00 Ecotrin PO DAILY LOYDA Clopidogrel Bisulfate 75 mg 12/14/17 10:00 Plavix PO DAILY LOYDA Dextrose 0 ml 12/13/17 17:12 Dextrose 50% Inj IV STAT PRN Hypoglycemia Protocol Protocol Dextrose 0 gm 12/13/17 17:12 Glutose 15 PO ONCE PRN Hypoglycemia Protocol Protocol Famotidine 40 mg 12/14/17 10:00 Pepcid PO DAILY LOYDA Dextrose 1,000 mls @ 0 mls/hr 12/13/17 17:25 Dextrose 5% In Water 1000 Ml IV .Q0M PRN Hypoglycemia Protocol Protocol Per Protocol Nafcillin Sodium 2 gm/ Sodium 250 mls @ 250 mls/hr 12/13/17 18:30 12/14/17 05:47 Chloride IVPB 250 mls/hr Q6H LOYDA Administration Protocol Vancomycin/Sodium Chloride 1 gm in 200 mls @ 133.333 mls/hr 12/14/17 10:00 Vancomycin 1 Gm/Ns 200 Ml IVPB 12/19/17 10:01 TTS LOYDA Protocol Heparin Sodium/Sodium Chloride 25,000 units in 250 mls @ 10.115 mls/hr 12/14/17 01:30 12/14/17 01:28 Heparin 48126 Units/250ml 1/2 Normal Saline IV 10 units/kg/hr .Q24H PRN 10.115 mls/hr PROTOCOL Administration Protocol 10 UNITS/KG/HR Insulin Human Regular 0 unit 12/13/17 22:00 12/14/17 07:41 Novolin R SC Not Given ACHS [facility] Protocol Metoprolol Tartrate 25 mg 12/13/17 18:00 12/13/17 18:30 Lopressor PO Not Given BID LOYDA Sevelamer Carbonate 1,600 mg 12/14/17 08:00 12/14/17 07:41 Renvela PO 1,600 mg TIDCC LOYDA Administration Vitamin B Complex/Vit C/Folic Acid 1 tab 12/14/17 08:00 12/14/17 07:42 Nephro-Joesph PO 1 tab 0800 LOYDA Administration - Patient Studies Lab Studies: Lab Studies 12/14/17 12/14/17 12/14/17 Range/Units 07:20 07:20 07:20 WBC 15.4 H (4.8-10.8) K/uL RBC 3.08 L (4.40-5.90) Mil/uL Hgb 9.9 L (12.0-18.0) g/dL Hct 28.8 L (35.0-51.0) % MCV 93.5 (80.0-94.0) fL MCH 32.2 H (27.0-31.0) pg MCHC 34.5 (33.0-37.0) g/dL RDW 15.6 H (11.5-14.5) % Plt Count 160 (130-400) K/uL MPV 9.8 (7.2-11.7) fL Neut % (Auto) 91.1 H (50.0-75.0) % Lymph % (Auto) 4.1 L (20.0-40.0) % [place] % (Auto) 4.3 (0.0-10.0) % Eos % (Auto) 0.0 (0.0-4.0) % Baso % (Auto) 0.5 (0.0-2.0) % Neut # (Auto) 14.0 H (1.8-7.0) K/uL Lymph # (Auto) 0.6 L (1.0-4.3) K/uL [place] # (Auto) 0.7 (0.0-0.8) K/uL Eos # (Auto) 0.0 (0.0-0.7) K/uL Baso # (Auto) 0.1 (0.0-0.2) K/uL Neutrophils % (Manual) (50-75) % Band Neutrophils % (0-2) % Lymphocytes % (Manual) (20-40) % Monocytes % (Manual) (0-10) % Myelocytes % (0-0) % Platelet Estimate (NORMAL) Anisocytosis (manual) PT 14.1 H (9.7-12.2) SECONDS INR 1.3 APTT 46 H (21-34) SECONDS Puncture Site pCO2 (35-45) mm/Hg pO2 (80-100) mm/Hg HCO3 (21-28) mmol/L ABG pH (7.35-7.45) ABG Total CO2 (22-28) mmol/L ABG Base Excess (-2.0-3.0) mmol/L Daniel Test VBG pH (7.32-7.43) VBG pCO2 (40-60) mmHg VBG HCO3 mmol/L VBG Total CO2 (22-28) mmol/L VBG O2 Sat (Calc) (40-65) % VBG Base Excess (0.0-2.0) mmol/L VBG Potassium (3.6-5.2) mmol/L Sodium (132-148) mmol/l Chloride (98-107) mmol/L Glucose (75-110) mg/dl Lactate (0.7-2.1) mmol/L Potassium (3.6-5.2) mmol/L Carbon Dioxide (22-30) mmol/L Anion Gap (10-20) BUN (9-20) mg/dL Creatinine (0.8-1.5) mg/dL Est GFR ( Amer) Est GFR (Non-Af Amer) POC Glucose (mg/dL) (65-110) mg/dL Random Glucose (75-110) mg/dL Calcium (8.6-10.4) mg/dl Phosphorus 8.7 H (2.5-4.5) mg/dL Magnesium 2.6 H (1.6-2.3) mg/dL Total Bilirubin (0.2-1.3) mg/dL AST (17-59) U/L ALT (21-72) U/L Alkaline Phosphatase (38-126) U/L Troponin I (0.00-0.120) ng/mL Total Protein (6.3-8.3) g/dL Albumin (3.5-5.0) g/dL Globulin (2.2-3.9) gm/dL Albumin/Globulin Ratio (1.0-2.1) Venous Blood Potassium (3.6-5.2) mmol/L 12/13/17 12/13/17 12/13/17 Range/Units 23:56 23:42 16:57 WBC (4.8-10.8) K/uL RBC (4.40-5.90) Mil/uL Hgb (12.0-18.0) g/dL Hct (35.0-51.0) % MCV (80.0-94.0) fL MCH (27.0-31.0) pg MCHC (33.0-37.0) g/dL RDW (11.5-14.5) % Plt Count (130-400) K/uL MPV (7.2-11.7) fL Neut % (Auto) (50.0-75.0) % Lymph % (Auto) (20.0-40.0) % [place] % (Auto) (0.0-10.0) % Eos % (Auto) (0.0-4.0) % Baso % (Auto) (0.0-2.0) % Neut # (Auto) (1.8-7.0) K/uL Lymph # (Auto) (1.0-4.3) K/uL [place] # (Auto) (0.0-0.8) K/uL Eos # (Auto) (0.0-0.7) K/uL Baso # (Auto) (0.0-0.2) K/uL Neutrophils % (Manual) (50-75) % Band Neutrophils % (0-2) % Lymphocytes % (Manual) (20-40) % Monocytes % (Manual) (0-10) % Myelocytes % (0-0) % Platelet Estimate (NORMAL) Anisocytosis (manual) PT (9.7-12.2) SECONDS INR APTT 44 H (21-34) SECONDS Puncture Site pCO2 (35-45) mm/Hg pO2 (80-100) mm/Hg HCO3 (21-28) mmol/L ABG pH (7.35-7.45) ABG Total CO2 (22-28) mmol/L ABG Base Excess (-2.0-3.0) mmol/L Daniel Test VBG pH (7.32-7.43) VBG pCO2 (40-60) mmHg VBG HCO3 mmol/L VBG Total CO2 (22-28) mmol/L VBG O2 Sat (Calc) (40-65) % VBG Base Excess (0.0-2.0) mmol/L VBG Potassium (3.6-5.2) mmol/L Sodium (132-148) mmol/l Chloride (98-107) mmol/L Glucose (75-110) mg/dl Lactate (0.7-2.1) mmol/L Potassium (3.6-5.2) mmol/L Carbon Dioxide (22-30) mmol/L Anion Gap (10-20) BUN (9-20) mg/dL Creatinine (0.8-1.5) mg/dL Est GFR ( Amer) Est GFR (Non-Af Amer) POC Glucose (mg/dL) 127 H (65-110) mg/dL Random Glucose (75-110) mg/dL Calcium (8.6-10.4) mg/dl Phosphorus (2.5-4.5) mg/dL Magnesium (1.6-2.3) mg/dL Total Bilirubin (0.2-1.3) mg/dL AST (17-59) U/L ALT (21-72) U/L Alkaline Phosphatase (38-126) U/L Troponin I 0.4700 H* (0.00-0.120) ng/mL Total Protein (6.3-8.3) g/dL Albumin (3.5-5.0) g/dL Globulin (2.2-3.9) gm/dL Albumin/Globulin Ratio (1.0-2.1) Venous Blood Potassium (3.6-5.2) mmol/L 12/13/17 12/13/17 12/13/17 Range/Units 16:54 16:54 16:54 WBC 21.1 H (4.8-10.8) K/uL RBC 3.68 L (4.40-5.90) Mil/uL Hgb 11.5 L (12.0-18.0) g/dL Hct 34.9 L (35.0-51.0) % MCV 94.7 H (80.0-94.0) fL MCH 31.3 H (27.0-31.0) pg MCHC 33.1 (33.0-37.0) g/dL RDW 15.9 H (11.5-14.5) % Plt Count 178 (130-400) K/uL MPV 10.1 (7.2-11.7) fL Neut % (Auto) 89.2 H (50.0-75.0) % Lymph % (Auto) 7.7 L (20.0-40.0) % [place] % (Auto) 2.5 (0.0-10.0) % Eos % (Auto) 0.2 (0.0-4.0) % Baso % (Auto) 0.4 (0.0-2.0) % Neut # (Auto) 18.8 H (1.8-7.0) K/uL Lymph # (Auto) 1.6 (1.0-4.3) K/uL [place] # (Auto) 0.5 (0.0-0.8) K/uL Eos # (Auto) 0.0 (0.0-0.7) K/uL Baso # (Auto) 0.1 (0.0-0.2) K/uL Neutrophils % (Manual) 88 H (50-75) % Band Neutrophils % 3 H (0-2) % Lymphocytes % (Manual) 6 L (20-40) % Monocytes % (Manual) 2 (0-10) % Myelocytes % 1 H (0-0) % Platelet Estimate Normal (NORMAL) Anisocytosis (manual) Slight PT 14.1 H (9.7-12.2) SECONDS INR 1.3 APTT 42 H (21-34) SECONDS Puncture Site pCO2 (35-45) mm/Hg pO2 (80-100) mm/Hg HCO3 (21-28) mmol/L ABG pH (7.35-7.45) ABG Total CO2 (22-28) mmol/L ABG Base Excess (-2.0-3.0) mmol/L Daniel Test VBG pH (7.32-7.43) VBG pCO2 (40-60) mmHg VBG HCO3 mmol/L VBG Total CO2 (22-28) mmol/L VBG O2 Sat (Calc) (40-65) % VBG Base Excess (0.0-2.0) mmol/L VBG Potassium (3.6-5.2) mmol/L Sodium 134 (132-148) mmol/l Chloride 94 L (98-107) mmol/L Glucose (75-110) mg/dl Lactate (0.7-2.1) mmol/L Potassium 5.7 H (3.6-5.2) mmol/L Carbon Dioxide 17 L (22-30) mmol/L Anion Gap 29 H (10-20) BUN 69 H (9-20) mg/dL Creatinine 9.5 H* (0.8-1.5) mg/dL Est GFR ( Amer) 7 Est GFR (Non-Af Amer) 6 POC Glucose (mg/dL) (65-110) mg/dL Random Glucose 149 H (75-110) mg/dL Calcium 7.8 L (8.6-10.4) mg/dl Phosphorus (2.5-4.5) mg/dL Magnesium (1.6-2.3) mg/dL Total Bilirubin 11.0 H (0.2-1.3) mg/dL AST 30 (17-59) U/L ALT 8 L (21-72) U/L Alkaline Phosphatase 211 H (38-126) U/L Troponin I (0.00-0.120) ng/mL Total Protein 7.7 (6.3-8.3) g/dL Albumin 3.3 L (3.5-5.0) g/dL Globulin 4.3 H (2.2-3.9) gm/dL Albumin/Globulin Ratio 0.8 L (1.0-2.1) Venous Blood Potassium (3.6-5.2) mmol/L 12/13/17 12/13/17 12/13/17 Range/Units 15:03 14:44 14:40 WBC (4.8-10.8) K/uL RBC (4.40-5.90) Mil/uL Hgb (12.0-18.0) g/dL Hct (35.0-51.0) % MCV (80.0-94.0) fL MCH (27.0-31.0) pg MCHC (33.0-37.0) g/dL RDW (11.5-14.5) % Plt Count (130-400) K/uL MPV (7.2-11.7) fL Neut % (Auto) (50.0-75.0) % Lymph % (Auto) (20.0-40.0) % [place] % (Auto) (0.0-10.0) % Eos % (Auto) (0.0-4.0) % Baso % (Auto) (0.0-2.0) % Neut # (Auto) (1.8-7.0) K/uL Lymph # (Auto) (1.0-4.3) K/uL [place] # (Auto) (0.0-0.8) K/uL Eos # (Auto) (0.0-0.7) K/uL Baso # (Auto) (0.0-0.2) K/uL Neutrophils % (Manual) (50-75) % Band Neutrophils % (0-2) % Lymphocytes % (Manual) (20-40) % Monocytes % (Manual) (0-10) % Myelocytes % (0-0) % Platelet Estimate (NORMAL) Anisocytosis (manual) PT (9.7-12.2) SECONDS INR APTT (21-34) SECONDS Puncture Site pCO2 (35-45) mm/Hg pO2 42 42 (80-100) mm/Hg HCO3 (21-28) mmol/L ABG pH (7.35-7.45) ABG Total CO2 (22-28) mmol/L ABG Base Excess (-2.0-3.0) mmol/L Daniel Test VBG pH 7.33 7.33 (7.32-7.43) VBG pCO2 29 L 31 L (40-60) mmHg VBG HCO3 17.1 17.7 mmol/L VBG Total CO2 16.2 L 17.3 L (22-28) mmol/L VBG O2 Sat (Calc) 77.6 H 75.4 H (40-65) % VBG Base Excess -9.2 L -8.4 L (0.0-2.0) mmol/L VBG Potassium 4.2 4.4 (3.6-5.2) mmol/L Sodium 140.0 136.0 (132-148) mmol/l Chloride 107.0 105.0 (98-107) mmol/L Glucose 74 L 76 (75-110) mg/dl Lactate 1.3 1.3 (0.7-2.1) mmol/L Potassium (3.6-5.2) mmol/L Carbon Dioxide (22-30) mmol/L Anion Gap (10-20) BUN (9-20) mg/dL Creatinine (0.8-1.5) mg/dL Est GFR ( Amer) Est GFR (Non-Af Amer) POC Glucose (mg/dL) 87 (65-110) mg/dL Random Glucose (75-110) mg/dL Calcium (8.6-10.4) mg/dl Phosphorus (2.5-4.5) mg/dL Magnesium (1.6-2.3) mg/dL Total Bilirubin (0.2-1.3) mg/dL AST (17-59) U/L ALT (21-72) U/L Alkaline Phosphatase (38-126) U/L Troponin I (0.00-0.120) ng/mL Total Protein (6.3-8.3) g/dL Albumin (3.5-5.0) g/dL Globulin (2.2-3.9) gm/dL Albumin/Globulin Ratio (1.0-2.1) Venous Blood Potassium 4.2 4.4 (3.6-5.2) mmol/L 11/05/18 Range/Units 14:33 WBC (4.8-10.8) K/uL RBC (4.40-5.90) Mil/uL Hgb (12.0-18.0) g/dL Hct (35.0-51.0) % MCV (80.0-94.0) fL MCH (27.0-31.0) pg MCHC (33.0-37.0) g/dL RDW (11.5-14.5) % Plt Count (130-400) K/uL MPV (7.2-11.7) fL Neut % (Auto) (50.0-75.0) % Lymph % (Auto) (20.0-40.0) % [place] % (Auto) (0.0-10.0) % Eos % (Auto) (0.0-4.0) % Baso % (Auto) (0.0-2.0) % Neut # (Auto) (1.8-7.0) K/uL Lymph # (Auto) (1.0-4.3) K/uL [place] # (Auto) (0.0-0.8) K/uL Eos # (Auto) (0.0-0.7) K/uL Baso # (Auto) (0.0-0.2) K/uL Neutrophils % (Manual) (50-75) % Band Neutrophils % (0-2) % Lymphocytes % (Manual) (20-40) % Monocytes % (Manual) (0-10) % Myelocytes % (0-0) % Platelet Estimate (NORMAL) Anisocytosis (manual) PT (9.7-12.2) SECONDS INR APTT (21-34) SECONDS Puncture Site Arterial pCO2 27 L (35-45) mm/Hg pO2 69 L (80-100) mm/Hg HCO3 22.8 (21-28) mmol/L ABG pH 7.47 H (7.35-7.45) ABG Total CO2 20.5 L (22-28) mmol/L ABG Base Excess -2.6 L (-2.0-3.0) mmol/L Daniel Test Na VBG pH (7.32-7.43) VBG pCO2 (40-60) mmHg VBG HCO3 mmol/L VBG Total CO2 (22-28) mmol/L VBG O2 Sat (Calc) (40-65) % VBG Base Excess (0.0-2.0) mmol/L VBG Potassium (3.6-5.2) mmol/L Sodium (132-148) mmol/l Chloride (98-107) mmol/L Glucose (75-110) mg/dl Lactate (0.7-2.1) mmol/L Potassium (3.6-5.2) mmol/L Carbon Dioxide (22-30) mmol/L Anion Gap (10-20) BUN (9-20) mg/dL Creatinine (0.8-1.5) mg/dL Est GFR ( Amer) Est GFR (Non-Af Amer) POC Glucose (mg/dL) (65-110) mg/dL Random Glucose (75-110) mg/dL Calcium (8.6-10.4) mg/dl Phosphorus (2.5-4.5) mg/dL Magnesium (1.6-2.3) mg/dL Total Bilirubin (0.2-1.3) mg/dL AST (17-59) U/L ALT (21-72) U/L Alkaline Phosphatase (38-126) U/L Troponin I (0.00-0.120) ng/mL Total Protein (6.3-8.3) g/dL Albumin (3.5-5.0) g/dL Globulin (2.2-3.9) gm/dL Albumin/Globulin Ratio (1.0-2.1) Venous Blood Potassium (3.6-5.2) mmol/L Laboratory Results - last 24 hr 12/13/17 12/13/17 12/13/17 14:33 14:40 14:44 WBC RBC Hgb Hct MCV MCH MCHC RDW Plt Count MPV Neut % (Auto) Lymph % (Auto) [place] % (Auto) Eos % (Auto) Baso % (Auto) Neut # (Auto) Lymph # (Auto) [place] # (Auto) Eos # (Auto) Baso # (Auto) Neutrophils % (Manual) Band Neutrophils % Lymphocytes % (Manual) Monocytes % (Manual) Myelocytes % Platelet Estimate Anisocytosis (manual) PT INR APTT Puncture Site Arterial pCO2 27 L pO2 69 L 42 42 HCO3 22.8 ABG pH 7.47 H ABG Total CO2 20.5 L ABG Base Excess -2.6 L Daniel Test Na VBG pH 7.33 7.33 VBG pCO2 31 L 29 L VBG HCO3 17.7 17.1 VBG Total CO2 17.3 L 16.2 L VBG O2 Sat (Calc) 75.4 H 77.6 H VBG Base Excess -8.4 L -9.2 L VBG Potassium 4.4 4.2 Sodium 136.0 140.0 Chloride 105.0 107.0 Glucose 76 74 L Lactate 1.3 1.3 Potassium Carbon Dioxide Anion Gap BUN Creatinine Est GFR ( Amer) Est GFR (Non-Af Amer) POC Glucose (mg/dL) Random Glucose Calcium Phosphorus Magnesium Total Bilirubin AST ALT Alkaline Phosphatase Troponin I Total Protein Albumin Globulin Albumin/Globulin Ratio Venous Blood Potassium 4.4 4.2 12/13/17 12/13/17 12/13/17 15:03 16:54 16:54 WBC RBC Hgb Hct MCV MCH MCHC RDW Plt Count MPV Neut % (Auto) Lymph % (Auto) [place] % (Auto) Eos % (Auto) Baso % (Auto) Neut # (Auto) Lymph # (Auto) [place] # (Auto) Eos # (Auto) Baso # (Auto) Neutrophils % (Manual) Band Neutrophils % Lymphocytes % (Manual) Monocytes % (Manual) Myelocytes % Platelet Estimate Anisocytosis (manual) PT 14.1 H INR 1.3 APTT 42 H Puncture Site pCO2 pO2 HCO3 ABG pH ABG Total CO2 ABG Base Excess Daniel Test VBG pH VBG pCO2 VBG HCO3 VBG Total CO2 VBG O2 Sat (Calc) VBG Base Excess VBG Potassium Sodium 134 Chloride 94 L Glucose Lactate Potassium 5.7 H Carbon Dioxide 17 L Anion Gap 29 H BUN 69 H Creatinine 9.5 H* Est GFR ( Amer) 7 Est GFR (Non-Af Amer) 6 POC Glucose (mg/dL) 87 Random Glucose 149 H Calcium 7.8 L Phosphorus Magnesium Total Bilirubin 11.0 H AST 30 ALT 8 L Alkaline Phosphatase 211 H Troponin I Total Protein 7.7 Albumin 3.3 L Globulin 4.3 H Albumin/Globulin Ratio 0.8 L Venous Blood Potassium 12/13/17 12/13/17 12/13/17 16:54 16:57 23:42 WBC 21.1 H RBC 3.68 L Hgb 11.5 L Hct 34.9 L MCV 94.7 H MCH 31.3 H MCHC 33.1 RDW 15.9 H Plt Count 178 MPV 10.1 Neut % (Auto) 89.2 H Lymph % (Auto) 7.7 L [place] % (Auto) 2.5 Eos % (Auto) 0.2 Baso % (Auto) 0.4 Neut # (Auto) 18.8 H Lymph # (Auto) 1.6 [place] # (Auto) 0.5 Eos # (Auto) 0.0 Baso # (Auto) 0.1 Neutrophils % (Manual) 88 H Band Neutrophils % 3 H Lymphocytes % (Manual) 6 L Monocytes % (Manual) 2 Myelocytes % 1 H Platelet Estimate Normal Anisocytosis (manual) Slight PT INR APTT Puncture Site pCO2 pO2 HCO3 ABG pH ABG Total CO2 ABG Base Excess Daniel Test VBG pH VBG pCO2 VBG HCO3 VBG Total CO2 VBG O2 Sat (Calc) VBG Base Excess VBG Potassium Sodium Chloride Glucose Lactate Potassium Carbon Dioxide Anion Gap BUN Creatinine Est GFR ( Amer) Est GFR (Non-Af Amer) POC Glucose (mg/dL) 127 H Random Glucose Calcium Phosphorus Magnesium Total Bilirubin AST ALT Alkaline Phosphatase Troponin I 0.4700 H* Total Protein Albumin Globulin Albumin/Globulin Ratio Venous Blood Potassium 12/13/17 12/14/17 12/14/17 23:56 07:20 07:20 WBC 15.4 H RBC 3.08 L Hgb 9.9 L Hct 28.8 L MCV 93.5 MCH 32.2 H MCHC 34.5 RDW 15.6 H Plt Count 160 MPV 9.8 Neut % (Auto) 91.1 H Lymph % (Auto) 4.1 L [place] % (Auto) 4.3 Eos % (Auto) 0.0 Baso % (Auto) 0.5 Neut # (Auto) 14.0 H Lymph # (Auto) 0.6 L [place] # (Auto) 0.7 Eos # (Auto) 0.0 Baso # (Auto) 0.1 Neutrophils % (Manual) Band Neutrophils % Lymphocytes % (Manual) Monocytes % (Manual) Myelocytes % Platelet Estimate Anisocytosis (manual) PT 14.1 H INR 1.3 APTT 44 H 46 H Puncture Site pCO2 pO2 HCO3 ABG pH ABG Total CO2 ABG Base Excess Daniel Test VBG pH VBG pCO2 VBG HCO3 VBG Total CO2 VBG O2 Sat (Calc) VBG Base Excess VBG Potassium Sodium Chloride Glucose Lactate Potassium Carbon Dioxide Anion Gap BUN Creatinine Est GFR ( Amer) Est GFR (Non-Af Amer) POC Glucose (mg/dL) Random Glucose Calcium Phosphorus Magnesium Total Bilirubin AST ALT Alkaline Phosphatase Troponin I Total Protein Albumin Globulin Albumin/Globulin Ratio Venous Blood Potassium 12/14/17 07:20 WBC RBC Hgb Hct MCV MCH MCHC RDW Plt Count MPV Neut % (Auto) Lymph % (Auto) [place] % (Auto) Eos % (Auto) Baso % (Auto) Neut # (Auto) Lymph # (Auto) [place] # (Auto) Eos # (Auto) Baso # (Auto) Neutrophils % (Manual) Band Neutrophils % Lymphocytes % (Manual) Monocytes % (Manual) Myelocytes % Platelet Estimate Anisocytosis (manual) PT INR APTT Puncture Site pCO2 pO2 HCO3 ABG pH ABG Total CO2 ABG Base Excess Daniel Test VBG pH VBG pCO2 VBG HCO3 VBG Total CO2 VBG O2 Sat (Calc) VBG Base Excess VBG Potassium Sodium Chloride Glucose Lactate Potassium Carbon Dioxide Anion Gap BUN Creatinine Est GFR ( Amer) Est GFR (Non-Af Amer) POC Glucose (mg/dL) Random Glucose Calcium Phosphorus 8.7 H Magnesium 2.6 H Total Bilirubin AST ALT Alkaline Phosphatase Troponin I Total Protein Albumin Globulin Albumin/Globulin Ratio Venous Blood Potassium EKG/Cardiology Studies: Cardiology / EKG Studies 12/13/17 16:38 EKG [ELECTROCARDIOGRAM] Stat Comment: Mode Of Transportation: STRETCHER Reason For Exam: S/P CODE BLUE 12/14/17 07:00 EKG [ELECTROCARDIOGRAM] Routine Comment: Mode Of Transportation: Reason For Exam: s/p cath, Vtach Fingerstick Blood Sugar Results: 141 Review of Systems - Review of Systems All systems: reviewed and no additional remarkable complaints except - Constitutional Constitutional: Weakness. absent: Fever, Chills, Sweats - EENT Eyes: UNREMARKABLE Ears: UNREMARKABLE Nose/Mouth/Throat: UNREMARKABLE - Cardiovascular Cardiovascular: UNREMARKABLE. absent: Chest Pain, Diaphoresis, Dyspnea - Respiratory Respiratory: UNREMARKABLE. absent: Cough, Dyspnea - Gastrointestinal Gastrointestinal: UNREMARKABLE. absent: Abdominal Pain, Change in Bowel Habits - Genitourinary Genitourinary: UNREMARKABLE. absent: Dysuria - Musculoskeletal Musculoskeletal: As Par HPI, Back Pain - Integumentary Integumentary: As Per HPI - Neurological Neurological: UNREMARKABLE - Psychiatric Psychiatric: UNREMARKABLE - Endocrine Endocrine: Fatigue Critical Care Progress Note - Extremities/Vascular Does the Patient have a Central Venous Catheter?: No Does the Patient need a Central Venous Catheter?: No Does the Patient have a Kolb Catheter?: No Does the Patient need a Kolb Catheter?: No - Prophylaxis GI Prophylaxis GI: Pepsid - Prophylaxis DVT Prophylaxis DVT: Heparin SQ - Nutrition Nutrition: Nutrition Category Date Time Status Heart Healthy Diet [DIET] Diets 12/13/17 Dinner Active Assessment/Plan - Assessment and Plan (Free Text) Assessment: Patient is a 47 yo male with history ESRD on HD, T2DM, PVD, and HTN who was admitted to [facility] on 12/06/17 with generalized body aches, fever, and cough. He was found to be septic with positive blood cultures for MSSA. He was transferred to [facility] on 12/13 for cardiac cath due to elevated troponins. Fol lowing the completion of the cath, the patient went to have a BM and became unresponsive, pulseless with Vtach. Compressions were started and patient achieved ROSC after one shock. Plan is for patient to be transferred to [place] for heart surgery. Plan: Neuro: - No acute issues- delirium over night - CT head: no acute findings - Monitor mental status- post code blue CV: - s/p [employer] SALES [employer]PRESENT[employer]IVE/code blue- Vtach - Elevated troponins improving (0.139->0.873->.470) - Heparin drip- monitor PTT - s/p cardiac cath on 12/13- 4 vessel disease - No EKG changes - TTE: EF 55-60% - KYLA[facility] reading pending - Metoprolol 25 mg PO BID - ASA 81 mg PO daily - Plavix 75 mg PO daily - Monitor vitals- hypotensive, not on pressors - Cardiology consulted (Sebastian)- transfer to [place] Pulm: - CXR: - Maintain spO2>92%- supplemental O2 PRN - ABG : pH 7.26, pCO2 42, pO2 27, lactate 2.8 GI: - Heart healthy diet : - I's & O's - CMP daily - Replete electrolytes PRN - HD on TTS- emergent HD yesterday 12/13 - Nephrology consulted (Adrian) Endo: - Maintain euglycemia - Hypoglycemic protocol - Accuchecks with ISS ACHS Heme: - Anemia- Hgb (9.9) at baseline (10-19) - Monitor H&H ID: Sepsis (MSSA bacteremia)- r/o endocarditis - Tmax 102.5- afebrile since 12/11 - Tylenol 650 mg PO Q6H PRN - Leukocytosis improving (15.4) - ESR 114, CRP 159.2 - Procal 12.49 - Lactate 2.8 - Blood Cx: MSSA - Repeat blood Cx no growth >3 days - KYLAH reading pending - Nafcillin 2 g IV Q6H - Vancomycin 1 g IV TTS after HD - ID consulted (Gabriela) Integumentary: - Wound care consulted - Podiatry consulted (Ricardo) MSK: - Lumbar MRI: L5-S1 disc degeneration, cannot exclude osteomyelitis (rec IV contrast but ESRD) - Pelvis, hip CT: no acute fx - Hip/pelvis XR: L inferior ramus fx PPx: VTE: heparin drip GI: Pepcid 40 mg PO daily Code status: full code Case discussed with attending, Dr. Lai. PGY-1 Carolina Edwards D.O. <Scott Lai - Last Filed: 12/14/17 18:19> CCU Objective - Vital Signs / Intake & Output Vital Signs (Last 4 hours): Vital Signs Temp Pulse Resp BP Pulse Ox 12/14/17 17:54 84/43 L 12/14/17 16:20 67 14 98 12/14/17 16:10 67 15 98 12/14/17 16:00 97.8 F 66 17 100 12/14/17 15:50 66 19 96 12/14/17 15:40 67 19 96/51 L 12/14/17 15:30 63 18 100 12/14/17 15:20 57 L 20 100 12/14/17 15:10 61 19 97 12/14/17 15:00 61 14 100 12/14/17 14:50 58 L 18 100 12/14/17 14:41 55 L 19 88/44 L 99 12/14/17 14:40 55 L 18 88 L 12/14/17 14:30 56 L 12 12/14/17 14:20 60 15 93 L Intake and Output (Last 8hrs): Intake & Output 12/14/17 12/14/1712/14/18 06:59 14:59 22:59 Intake Total 454.5 1210.8 20.2 Output Total 0 0 Balance 454.5 1210.8 20.2 Weight 232 lb 3.2 oz Intake: Intake, IV Amount 334.5 740.8 20.2 Left Antecubital 84.5 290.8 20.2 left ac 2nd port 250 450 Oral 120 470 Output: Urine 0 Urine, Voided 0 Emesis 0 Other: # Voids Urine, Voided 0 0 # Bowel Movements 0 0 - Medications Active Medications: Active Medications Generic Name Dose Route Start Last Admin Trade Name Freq PRN Reason Stop Dose Admin Acetaminophen 650 mg 12/13/17 17:42 12/14/17 04:33 Tylenol 325mg Tab PO 650 mg Q6 PRN Administration Fever >100.4 F or Pain Aspirin 81 mg 12/14/17 10:00 12/14/17 09:12 Ecotrin PO 81 mg DAILY LOYDA Administration Clopidogrel Bisulfate 75 mg 12/14/17 10:00 12/14/17 09:12 Plavix PO 75 mg DAILY LOYDA Administration Dextrose 0 ml 12/13/17 17:12 Dextrose 50% Inj IV STAT PRN Hypoglycemia Protocol Protocol Dextrose 0 gm 12/13/17 17:12 Glutose 15 PO ONCE PRN Hypoglycemia Protocol Protocol Famotidine 40 mg 12/14/17 10:00 12/14/17 09:12 Pepcid PO 40 mg DAILY LOYDA Administration Dextrose 1,000 mls @ 0 mls/hr 12/13/17 17:25 Dextrose 5% In Water 1000 Ml IV .Q0M PRN Hypoglycemia Protocol Protocol Per Protocol Nafcillin Sodium 2 gm/ Sodium 250 mls @ 250 mls/hr 12/13/17 18:30 12/14/17 17:55 Chloride IVPB 250 mls/hr Q6H LOYDA Administration Protocol Vancomycin/Sodium Chloride 1 gm in 200 mls @ 133.333 mls/hr 12/14/17 10:00 12/14/17 09:12 Vancomycin 1 Gm/Ns 200 Ml IVPB 12/19/17 10:01 133.333 mls/hr TTS LOYDA Administration Protocol Heparin Sodium/Sodium Chloride 25,000 units in 250 mls @ 10.115 mls/hr 12/14/17 01:30 12/14/17 01:28 Heparin 71577 Units/250ml 1/2 Normal Saline IV 10 units/kg/hr .Q24H PRN 10.115 mls/hr PROTOCOL Administration Protocol 10 UNITS/KG/HR Insulin Human Regular 0 unit 12/13/17 22:00 12/14/17 16:51 Novolin R SC 2 u ACHS LOYDA Administration Protocol Metoprolol Tartrate 25 mg 12/13/17 18:00 12/14/17 17:54 Lopressor PO Not Given BID LOYDA Rosuvastatin Calcium 5 mg 12/14/17 22:00 Crestor PO HS LOYDA Sevelamer Carbonate 1,600 mg 12/14/17 08:00 12/14/17 16:52 Renvela PO 1,600 mg TIDCC LOYDA Administration Vitamin B Complex/Vit C/Folic Acid 1 tab 12/14/17 08:00 12/14/17 07:42 Nephro-Joesph PO 1 tab 0800 LOYDA Administration - Patient Studies Lab Studies: Lab Studies 12/14/17 12/14/17 12/14/17 Range/Units 13:15 11:41 07:32 WBC (4.8-10.8) K/uL RBC (4.40-5.90) Mil/uL Hgb (12.0-18.0) g/dL Hct (35.0-51.0) % MCV (80.0-94.0) fL MCH (27.0-31.0) pg MCHC (33.0-37.0) g/dL RDW (11.5-14.5) % Plt Count (130-400) K/uL MPV (7.2-11.7) fL Neut % (Auto) (50.0-75.0) % Lymph % (Auto) (20.0-40.0) % [place] % (Auto) (0.0-10.0) % Eos % (Auto) (0.0-4.0) % Baso % (Auto) (0.0-2.0) % Neut # (Auto) (1.8-7.0) K/uL Lymph # (Auto) (1.0-4.3) K/uL [place] # (Auto) (0.0-0.8) K/uL Eos # (Auto) (0.0-0.7) K/uL Baso # (Auto) (0.0-0.2) K/uL Neutrophils % (Manual) (50-75) % Lymphocytes % (Manual) (20-40) % Monocytes % (Manual) (0-10) % Platelet Estimate (NORMAL) Hypochromasia (manual) Poikilocytosis (manual Anisocytosis (manual) PT (9.7-12.2) SECONDS INR APTT 49 H (21-34) SECONDS Sodium (132-148) mmol/L Potassium (3.6-5.2) mmol/L Chloride (98-107) mmol/L Carbon Dioxide (22-30) mmol/L Anion Gap (10-20) BUN (9-20) mg/dL Creatinine (0.8-1.5) mg/dL Est GFR ( Amer) Est GFR (Non-Af Amer) POC Glucose (mg/dL) 143 H 141 H (65-110) mg/dL Random Glucose (75-110) mg/dL Calcium (8.6-10.4) mg/dl Phosphorus (2.5-4.5) mg/dL Magnesium (1.6-2.3) mg/dL Total Bilirubin (0.2-1.3) mg/dL AST (17-59) U/L ALT (21-72) U/L Alkaline Phosphatase (38-126) U/L Total Protein (6.3-8.3) g/dL Albumin (3.5-5.0) g/dL Globulin (2.2-3.9) gm/dL Albumin/Globulin Ratio (1.0-2.1) 12/14/17 12/14/17 12/14/17 Range/Units 07:20 07:20 07:20 WBC 15.4 H (4.8-10.8) K/uL RBC 3.08 L (4.40-5.90) Mil/uL Hgb 9.9 L (12.0-18.0) g/dL Hct 28.8 L (35.0-51.0) % MCV 93.5 (80.0-94.0) fL MCH 32.2 H (27.0-31.0) pg MCHC 34.5 (33.0-37.0) g/dL RDW 15.6 H (11.5-14.5) % Plt Count 160 (130-400) K/uL MPV 9.8 (7.2-11.7) fL Neut % (Auto) 91.1 H (50.0-75.0) % Lymph % (Auto) 4.1 L (20.0-40.0) % [place] % (Auto) 4.3 (0.0-10.0) % Eos % (Auto) 0.0 (0.0-4.0) % Baso % (Auto) 0.5 (0.0-2.0) % Neut # (Auto) 14.0 H (1.8-7.0) K/uL Lymph # (Auto) 0.6 L (1.0-4.3) K/uL [place] # (Auto) 0.7 (0.0-0.8) K/uL Eos # (Auto) 0.0 (0.0-0.7) K/uL Baso # (Auto) 0.1 (0.0-0.2) K/uL Neutrophils % (Manual) 91 H (50-75) % Lymphocytes % (Manual) 6 L (20-40) % Monocytes % (Manual) 3 (0-10) % Platelet Estimate Normal (NORMAL) Hypochromasia (manual) Slight Poikilocytosis (manual Slight Anisocytosis (manual) Slight PT 14.1 H (9.7-12.2) SECONDS INR 1.3 APTT 46 H (21-34) SECONDS Sodium 140 (132-148) mmol/L Potassium 5.0 (3.6-5.2) mmol/L Chloride 102 (98-107) mmol/L Carbon Dioxide 20 L (22-30) mmol/L Anion Gap 23 H (10-20) BUN 45 H (9-20) mg/dL Creatinine 7.3 H (0.8-1.5) mg/dL Est GFR ( Amer) 10 Est GFR (Non-Af Amer) 8 POC Glucose (mg/dL) (65-110) mg/dL Random Glucose 132 H (75-110) mg/dL Calcium 8.1 L (8.6-10.4) mg/dl Phosphorus 8.7 H (2.5-4.5) mg/dL Magnesium 2.6 H (1.6-2.3) mg/dL Total Bilirubin 8.7 H (0.2-1.3) mg/dL AST 27 (17-59) U/L ALT 11 L D (21-72) U/L Alkaline Phosphatase 233 H (38-126) U/L Total Protein 7.0 (6.3-8.3) g/dL Albumin 3.1 L (3.5-5.0) g/dL Globulin 4.0 H (2.2-3.9) gm/dL Albumin/Globulin Ratio 0.8 L (1.0-2.1) 12/13/17 12/13/17 Range/Units 23:56 23:42 WBC (4.8-10.8) K/uL RBC (4.40-5.90) Mil/uL Hgb (12.0-18.0) g/dL Hct (35.0-51.0) % MCV (80.0-94.0) fL MCH (27.0-31.0) pg MCHC (33.0-37.0) g/dL RDW (11.5-14.5) % Plt Count (130-400) K/uL MPV (7.2-11.7) fL Neut % (Auto) (50.0-75.0) % Lymph % (Auto) (20.0-40.0) % [place] % (Auto) (0.0-10.0) % Eos % (Auto) (0.0-4.0) % Baso % (Auto) (0.0-2.0) % Neut # (Auto) (1.8-7.0) K/uL Lymph # (Auto) (1.0-4.3) K/uL [place] # (Auto) (0.0-0.8) K/uL Eos # (Auto) (0.0-0.7) K/uL Baso # (Auto) (0.0-0.2) K/uL Neutrophils % (Manual) (50-75) % Lymphocytes % (Manual) (20-40) % Monocytes % (Manual) (0-10) % Platelet Estimate (NORMAL) Hypochromasia (manual) Poikilocytosis (manual Anisocytosis (manual) PT (9.7-12.2) SECONDS INR APTT 44 H (21-34) SECONDS Sodium (132-148) mmol/L Potassium (3.6-5.2) mmol/L Chloride (98-107) mmol/L Carbon Dioxide (22-30) mmol/L Anion Gap (10-20) BUN (9-20) mg/dL Creatinine (0.8-1.5) mg/dL Est GFR ( Amer) Est GFR (Non-Af Amer) POC Glucose (mg/dL) 127 H (65-110) mg/dL Random Glucose (75-110) mg/dL Calcium (8.6-10.4) mg/dl Phosphorus (2.5-4.5) mg/dL Magnesium (1.6-2.3) mg/dL Total Bilirubin (0.2-1.3) mg/dL AST (17-59) U/L ALT (21-72) U/L Alkaline Phosphatase (38-126) U/L Total Protein (6.3-8.3) g/dL Albumin (3.5-5.0) g/dL Globulin (2.2-3.9) gm/dL Albumin/Globulin Ratio (1.0-2.1) Laboratory Results - last 24 hr 12/13/17 12/13/17 12/14/17 23:42 23:56 07:20 WBC 15.4 H RBC 3.08 L Hgb 9.9 L Hct 28.8 L MCV 93.5 MCH 32.2 H MCHC 34.5 RDW 15.6 H Plt Count 160 MPV 9.8 Neut % (Auto) 91.1 H Lymph % (Auto) 4.1 L [place] % (Auto) 4.3 Eos % (Auto) 0.0 Baso % (Auto) 0.5 Neut # (Auto) 14.0 H Lymph # (Auto) 0.6 L [place] # (Auto) 0.7 Eos # (Auto) 0.0 Baso # (Auto) 0.1 Neutrophils % (Manual) 91 H Lymphocytes % (Manual) 6 L Monocytes % (Manual) 3 Platelet Estimate Normal Hypochromasia (manual) Slight Poikilocytosis (manual Slight Anisocytosis (manual) Slight PT INR APTT 44 H Sodium Potassium Chloride Carbon Dioxide Anion Gap BUN Creatinine Est GFR ( Amer) Est GFR (Non-Af Amer) POC Glucose (mg/dL) 127 H Random Glucose Calcium Phosphorus Magnesium Total Bilirubin AST ALT Alkaline Phosphatase Total Protein Albumin Globulin Albumin/Globulin Ratio 12/14/17 12/14/17 12/14/17 07:20 07:20 07:32 WBC RBC Hgb Hct MCV MCH MCHC RDW Plt Count MPV Neut % (Auto) Lymph % (Auto) [place] % (Auto) Eos % (Auto) Baso % (Auto) Neut # (Auto) Lymph # (Auto) [place] # (Auto) Eos # (Auto) Baso # (Auto) Neutrophils % (Manual) Lymphocytes % (Manual) Monocytes % (Manual) Platelet Estimate Hypochromasia (manual) Poikilocytosis (manual Anisocytosis (manual) PT 14.1 H INR 1.3 APTT 46 H Sodium 140 Potassium 5.0 Chloride 102 Carbon Dioxide 20 L Anion Gap 23 H BUN 45 H Creatinine 7.3 H Est GFR ( Amer) 10 Est GFR (Non-Af Amer) 8 POC Glucose (mg/dL) 141 H Random Glucose 132 H Calcium 8.1 L Phosphorus 8.7 H Magnesium 2.6 H Total Bilirubin 8.7 H AST 27 ALT 11 L D Alkaline Phosphatase 233 H Total Protein 7.0 Albumin 3.1 L Globulin 4.0 H Albumin/Globulin Ratio 0.8 L 12/14/17 12/14/17 11:41 13:15 WBC RBC Hgb Hct MCV MCH MCHC RDW Plt Count MPV Neut % (Auto) Lymph % (Auto) [place] % (Auto) Eos % (Auto) Baso % (Auto) Neut # (Auto) Lymph # (Auto) [place] # (Auto) Eos # (Auto) Baso # (Auto) Neutrophils % (Manual) Lymphocytes % (Manual) Monocytes % (Manual) Platelet Estimate Hypochromasia (manual) Poikilocytosis (manual Anisocytosis (manual) PT INR APTT 49 H Sodium Potassium Chloride Carbon Dioxide Anion Gap BUN Creatinine Est GFR ( Amer) Est GFR (Non-Af Amer) POC Glucose (mg/dL) 143 H Random Glucose Calcium Phosphorus Magnesium Total Bilirubin AST ALT Alkaline Phosphatase Total Protein Albumin Globulin Albumin/Globulin Ratio EKG/Cardiology Studies: Cardiology / EKG Studies 12/14/17 07:00 EKG [ELECTROCARDIOGRAM] Routine Comment: Mode Of Transportation: Reason For Exam: s/p cath, Vtach Critical Care Progress Note - Nutrition Nutrition: Nutrition Category Date Time Status Heart Healthy Diet [DIET] Diets 12/13/17 Dinner Active Attending/Attestation - Attestation I have personally seen and examined this patient.: Yes I have fully participated in the care of the patient.: Yes I have reviewed all pertinent clinical information: Yes Notes (Text): 12/14/17 18:17 patient seen and examined in the intensive care unit. Status post cardiac cath with extensive coronary artery disease being treated for staph bacteremia possible transfer to [facility] for cardiac bypass
[2017-12-14 09:19] LABS: ANISOCYTOSIS SLIGHT; HYPOCHROMIC SLIGHT; LYMPHOCYTE 6 % (20-40); MONOCYTE 3 % (0-10); NEUTROPHIL 91 % (50-75); PLATELET ESTIMATE NORMAL (NORMAL); POIKILOCYTOSIS SLIGHT; TOTAL CELLS COUNTED 100
[2017-12-14] MEDS ORDERED: Metoprolol Succinate 25 mg XL Tab PO SCH (10:00)
[2017-12-14] MEDS ORDERED: Vancomycin 1 gm/NS 200 ml 1 GM/200 ML BAG IVPB SCH (10:00)
[2017-12-14 10:40] LABS: ALB/GLOB RATIO 0.8 (1.0-2.1); ALBUMIN 3.1 g/dL (3.5-5.0); CALCIUM 8.1 mg/dl (8.6-10.4)
--- NOTE | 2017-12-14 11:12 | CP.PCM.CON ---
History of Present Illness - History of Present Illness History of Present Illness: 47 y/o male patient with PMHx of PVD, DMII with neuropathy, ESRD ( TThSat) admitted to [facility] to r/o endocarditis + MSSA bacteremia sepsis Coded after procedure found to have CAD Now in ICU Rx in progress including antibiotics PMH DM HTN ESRD Left TMA rigtht 5th toe amp Review of Systems - Review of Systems All systems: reviewed and no additional remarkable complaints except - Constitutional Constitutional: As Per HPI, Chills, Fever - EENT Eyes: absent: As Per HPI, Blind Spots, Blurred Vision, Change in Vision, Decreased Night Vision, Diplopia, Discharge, Dry Eye, Exophthalmos, Floaters, Irritation, Itchy Eyes, Loss of Peripheral Vision, Pain, Photophobia, Requires Corrective Lenses, Sees Flashes, Spots in Vision, Tunnel Vision, Other Visual Disturbances, Loss of Vision, Other Ears: absent: As Per HPI, Decreased Hearing, Ear Discharge, Ear Pain, Tinnitus, Abnormal Hearing, Disequilibrium, Dizziness, Other Nose/Mouth/Throat: absent: As Per HPI, Epistaxis, Nasal Congestion, Nasal Discharge, Nasal Obstruction, Nasal Trauma, Nose Pain, Post Nasal Drip, Sinus Pain, Sinus Pressure, Bleeding Gums, Change in Voice, Dental Pain, Dry Mouth, Dysphagia, Halitosis, Hoarsness, Lip Swelling, Mouth Lesions, Mouth Pain, Odynophagia, Sore Throat, Throat Swelling, Tongue Swelling, Facial Pain, Neck Pain, Neck Mass, Other - Cardiovascular Cardiovascular: absent: As Per HPI, Acrocyanosis, Chest Pain, Chest Pain at Rest, Chest Pain with Activity, Claudication, Diaphoresis, Dyspnea, Dyspnea on Exertion, Edema, Irregular Heart Rhythm, Pain Radiating to Arm/Neck/Jaw, Leg E alpa, Leg Ulcers, Lightheadedness, Orthopnea, Palpitations, Paroxysmal Nocturnal Dyspnea, Pedal Edema, Radiating Pain, Rapid Heart Rate, Slow Heart Rate, Syncope, Other - Respiratory Respiratory: absent: As Per HPI, Cough, Dyspnea, Hemoptysis, Dyspnea on Exerti on, Wheezing, Snoring, Stridor, Pain on Inspiration, Chest Congestion, Excessive Mucous Production, Change in Mucous Color, Pain with Coughing, Other - Gastrointestinal Gastrointestinal: absent: As Per HPI, Abdominal Pain, Belching, Bloating, Change in Bowel Habits, Change in Stool Character, Coffee Ground Emesis, Constipation, Cramping, Diarrhea, Dyspepsia, Dysphagia, Early Satiety, Excessive Flatus, Fecal Incontinence, Heartburn, Hematemesis, Hematochezia, Loose Stools, Melena, Nausea, Odynophagia, Temesmus, Vomiting, Other - Genitourinary Genitourinary: absent: As Per HPI, Change in Urinary Stream, Difficulty Ur inating, Dysuria, Flank Pain, Hematuria, Pyuria, Nocturia, Urinary Incontinence, Urinary Frequency, Urinary Hesitance, Urinary Urgency, Voiding Freq/Small Amts, Freq UTI, Hx Renal/Bladder Calculi, Hx /Renal Surgery, Bladder Distension, Other - Musculoskeletal Musculoskeletal: As Per HPI - Integumentary Integumentary: As Per HPI - Neurological Neurological: As Per HPI - Psychiatric Psychiatric: absent: As Per HPI, Abnormal Sleep Pattern, Anhedonia, Anxiety, Auditory Hallucinations, Behavioral Changes, Change in Appetite, Change in Libido, Confusion, Depression, Difficulty Concentrating, Hallucinations, Homicidal Ideation, Hopelessness, Irritability, Memory Loss, Mood Swings, Panic Attacks, Paranoia, Suicidal Ideation, Visual Hallucinations, Tactile Hallucinations, Other - Endocrine Endocrine: As Per HPI - Hematologic/Lymphatic Hematologic: absent: As Per HPI, Easy Bleeding, Easy Bruising, Lymphadenopathy, Other Past Patient History - Infectious Disease Hx of Infectious Diseases: None - Past Medical History & Family History Past Medical History?: Yes - Past Social History Smoking Status: Former Smoker Chewing Tobacco Use: No - CARDIAC Hx Congestive Heart Failure: No Hx Hypercholesterolemia: No Hx Hypertension: Yes - PULMONARY Hx Chronic Obstructive Pulmonary Disease (COPD): No - NEUROLOGICAL Hx Neurological Disorder: Yes Other/Comment: Hx Neuropathy - HEENT Hx HEENT Problems: Yes Hx Cataracts: Yes - RENAL Hx Chronic Kidney Disease: Yes - ENDOCRINE/METABOLIC Hx Hypothyroidism: No - HEMATOLOGICAL/ONCOLOGICAL Hx Human Immunodeficiency Virus (HIV): No - INTEGUMENTARY Hx Dermatological Problems: Yes Other/Comment: Hx Bilateral foot ulcers - MUSCULOSKELETAL/RHEUMATOLOGICAL Hx Arthritis: No Hx Rheumatoid Arthritis: No - GASTROINTESTINAL Hx Gastrointestinal Disorders: No - GENITOURINARY/GYNECOLOGICAL Hx Genitourinary Disorders: No - PSYCHIATRIC Hx Psychophysiologic Disorder: Yes Hx Depression: Yes Hx Substance Use: No - SURGICAL HISTORY Hx Surgeries: Yes Hx Amputation: Yes (Right TMA, Left 4th toe) Hx Cataract Extraction: Yes (Right eye - 2009) Hx Vascular Access Device: Yes (Right arm A-V fistula) Other/Comment: Hx of Insertion and removal of permacth for HD - ANESTHESIA Hx Anesthesia: Yes Hx Anesthesia Reactions: No Hx Malignant Hyperthermia: No Meds Allergies/Adverse Reactions: Allergies Allergy/AdvReac Type Severity Reaction Status Date / Time shellfish Allergy ITCHING Uncoded 12/06/17 05:22 - Medications Medications: Current Medications Acetaminophen (Tylenol 325mg Tab) 650 mg PO Q6 PRN PRN Reason: Fever >100.4 F or Pain Last Admin: 12/14/17 04:33 Dose: 650 mg Aspirin (Ecotrin) 81 mg PO DAILY [facility] Last Admin: 12/14/17 09:12 Dose: 81 mg Clopidogrel Bisulfate (Plavix) 75 mg PO DAILY [facility] Last Admin: 12/14/17 09:12 Dose: 75 mg Dextrose (Dextrose 50% Inj) 0 ml IV STAT PRN; Protocol PRN Reason: Hypoglycemia Protocol Dextrose (Glutose 15) 0 gm PO ONCE PRN; Protocol PRN Reason: Hypoglycemia Protocol Famotidine (Pepcid) 40 mg PO DAILY [facility] Last Admin: 12/14/17 09:12 Dose: 40 mg Dextrose (Dextrose 5% In Water 1000 Ml) 1,000 mls @ 0 mls/hr IV .Q0M PRN; Protocol PRN Reason: Hypoglycemia Protocol Nafcillin Sodium 2 gm/ Sodium (Chloride) 250 mls @ 250 mls/hr IVPB Q6H [facility]; Protocol Last Admin: 12/14/17 05:47 Dose: 250 mls/hr Vancomycin/Sodium Chloride (Vancomycin 1 Gm/Ns 200 Ml) 1 gm in 200 mls @ 133.333 mls/hr IVPB TTS [facility]; Protocol Stop: 12/19/17 10:01 Last Admin: 12/14/17 09:12 Dose: 133.333 mls/hr Heparin Sodium/Sodium Chloride (Heparin 72056 Units/250ml 1/2 Normal Saline) 25,000 units in 250 mls @ 10.115 mls/hr IV .Q24H PRN; Protocol PRN Reason: PROTOCOL Last Admin: 12/14/17 01:28 Dose: 10 units/kg/hr, 10.115 mls/hr Insulin Human Regular (Novolin R) 0 unit SC ACHS [facility]; Protocol Last Admin: 12/14/17 07:41 Dose: Not Given Metoprolol Tartrate (Lopressor) 25 mg PO BID [facility] Last Admin: 12/13/17 18:30 Dose: Not Given Sevelamer Carbonate (Renvela) 1,600 mg PO TIDCC [facility] Last Admin: 12/14/17 07:41 Dose: 1,600 mg Vitamin B Complex/Vit C/Folic Acid (Nephro-Joesph) 1 tab PO 0800 [facility] Last Admin: 12/14/17 07:42 Dose: 1 tab Physical Exam - Constitutional Appears: No Acute Distress, Chronically Ill - Head Exam Head Exam: ATRAUMATIC - Eye Exam Eye Exam: absent: Scleral icterus - ENT Exam ENT Exam: Mucous Membranes Dry - Neck Exam Neck exam: Negative for: Lymphadenopathy - Respiratory Exam Respiratory Exam: Decreased Breath Sounds - Cardiovascular Exam Cardiovascular Exam: REGULAR RHYTHM - GI/Abdominal Exam GI & Abdominal Exam: Diminished Bowel Sounds, Soft. absent: Tenderness - Rectal Exam Rectal Exam: Deferred - Exam Exam: NORMAL INSPECTION - Extremities Exam Extremities exam: Positive for: pedal edema - Back Exam Back exam: absent: CVA tenderness (L), CVA tenderness (R) - Neurological Exam Neurological exam: Alert, CN II-XII Intact, Oriented x3, Reflexes Normal - Psychiatric Exam Psychiatric exam: Depressed - Skin Skin Exam: Dry Results - Vital Signs Recent Vital Signs: Last Vital Signs Temp 97.4 F L 12/14/17 08:00 Pulse 63 12/14/17 07:51 Resp 12 12/14/17 07:51 BP 95/53 L 12/14/17 07:51 Pulse Ox 98 12/14/17 08:00 - Labs Result Diagrams: 12/15/17 06:01 12/15/17 06:01 Labs: Laboratory Results - last 24 hr 12/13/17 12/13/17 12/13/17 14:33 14:40 14:44 WBC RBC Hgb Hct MCV MCH MCHC RDW Plt Count MPV Neut % (Auto) Lymph % (Auto) [place] % (Auto) Eos % (Auto) Baso % (Auto) Neut # (Auto) Lymph # (Auto) [place] # (Auto) Eos # (Auto) Baso # (Auto) Neutrophils % (Manual) Band Neutrophils % Lymphocytes % (Manual) Monocytes % (Manual) Myelocytes % Platelet Estimate Hypochromasia (manual) Poikilocytosis (manual Anisocytosis (manual) PT INR APTT Puncture Site Arterial pCO2 27 L pO2 69 L 42 42 HCO3 22.8 ABG pH 7.47 H ABG Total CO2 20.5 L ABG Base Excess -2.6 L Daniel Test Na VBG pH 7.33 7.33 VBG pCO2 31 L 29 L VBG HCO3 17.7 17.1 VBG Total CO2 17.3 L 16.2 L VBG O2 Sat (Calc) 75.4 H 77.6 H VBG Base Excess -8.4 L -9.2 L VBG Potassium 4.4 4.2 Sodium 136.0 140.0 Chloride 105.0 107.0 Glucose 76 74 L Lactate 1.3 1.3 Potassium Carbon Dioxide Anion Gap BUN Creatinine Est GFR ( Amer) Est GFR (Non-Af Amer) POC Glucose (mg/dL) Random Glucose Calcium Phosphorus Magnesium Total Bilirubin AST ALT Alkaline Phosphatase Troponin I Total Protein Albumin Globulin Albumin/Globulin Ratio Venous Blood Potassium 4.4 4.2 12/13/17 12/13/17 12/13/17 15:03 16:54 16:54 WBC RBC Hgb Hct MCV MCH MCHC RDW Plt Count MPV Neut % (Auto) Lymph % (Auto) [place] % (Auto) Eos % (Auto) Baso % (Auto) Neut # (Auto) Lymph # (Auto) [place] # (Auto) Eos # (Auto) Baso # (Auto) Neutrophils % (Manual) Band Neutrophils % Lymphocytes % (Manual) Monocytes % (Manual) Myelocytes % Platelet Estimate Hypochromasia (manual) Poikilocytosis (manual Anisocytosis (manual) PT 14.1 H INR 1.3 APTT 42 H Puncture Site pCO2 pO2 HCO3 ABG pH ABG Total CO2 ABG Base Excess Daniel Test VBG pH VBG pCO2 VBG HCO3 VBG Total CO2 VBG O2 Sat (Calc) VBG Base Excess VBG Potassium Sodium 134 Chloride 94 L Glucose Lactate Potassium 5.7 H Carbon Dioxide 17 L Anion Gap 29 H BUN 69 H Creatinine 9.5 H* Est GFR ( Amer) 7 Est GFR (Non-Af Amer) 6 POC Glucose (mg/dL) 87 Random Glucose 149 H Calcium 7.8 L Phosphorus Magnesium Total Bilirubin 11.0 H AST 30 ALT 8 L Alkaline Phosphatase 211 H Troponin I Total Protein 7.7 Albumin 3.3 L Globulin 4.3 H Albumin/Globulin Ratio 0.8 L Venous Blood Potassium 12/13/17 12/13/17 12/13/17 16:54 16:57 23:42 WBC 21.1 H RBC 3.68 L Hgb 11.5 L Hct 34.9 L MCV 94.7 H MCH 31.3 H MCHC 33.1 RDW 15.9 H Plt Count 178 MPV 10.1 Neut % (Auto) 89.2 H Lymph % (Auto) 7.7 L [place] % (Auto) 2.5 Eos % (Auto) 0.2 Baso % (Auto) 0.4 Neut # (Auto) 18.8 H Lymph # (Auto) 1.6 [place] # (Auto) 0.5 Eos # (Auto) 0.0 Baso # (Auto) 0.1 Neutrophils % (Manual) 88 H Band Neutrophils % 3 H Lymphocytes % (Manual) 6 L Monocytes % (Manual) 2 Myelocytes % 1 H Platelet Estimate Normal Hypochromasia (manual) Poikilocytosis (manual Anisocytosis (manual) Slight PT INR APTT Puncture Site pCO2 pO2 HCO3 ABG pH ABG Total CO2 ABG Base Excess Daniel Test VBG pH VBG pCO2 VBG HCO3 VBG Total CO2 VBG O2 Sat (Calc) VBG Base Excess VBG Potassium Sodium Chloride Glucose Lactate Potassium Carbon Dioxide Anion Gap BUN Creatinine Est GFR ( Amer) Est GFR (Non-Af Amer) POC Glucose (mg/dL) 127 H Random Glucose Calcium Phosphorus Magnesium Total Bilirubin AST ALT Alkaline Phosphatase Troponin I 0.4700 H* Total Protein Albumin Globulin Albumin/Globulin Ratio Venous Blood Potassium 12/13/17 12/14/17 12/14/17 23:56 07:20 07:20 WBC 15.4 H RBC 3.08 L Hgb 9.9 L Hct 28.8 L MCV 93.5 MCH 32.2 H MCHC 34.5 RDW 15.6 H Plt Count 160 MPV 9.8 Neut % (Auto) 91.1 H Lymph % (Auto) 4.1 L [place] % (Auto) 4.3 Eos % (Auto) 0.0 Baso % (Auto) 0.5 Neut # (Auto) 14.0 H Lymph # (Auto) 0.6 L [place] # (Auto) 0.7 Eos # (Auto) 0.0 Baso # (Auto) 0.1 Neutrophils % (Manual) 91 H Band Neutrophils % Lymphocytes % (Manual) 6 L Monocytes % (Manual) 3 Myelocytes % Platelet Estimate Normal Hypochromasia (manual) Slight Poikilocytosis (manual Slight Anisocytosis (manual) Slight PT 14.1 H INR 1.3 APTT 44 H 46 H Puncture Site pCO2 pO2 HCO3 ABG pH ABG Total CO2 ABG Base Excess Daniel Test VBG pH VBG pCO2 VBG HCO3 VBG Total CO2 VBG O2 Sat (Calc) VBG Base Excess VBG Potassium Sodium Chloride Glucose Lactate Potassium Carbon Dioxide Anion Gap BUN Creatinine Est GFR ( Amer) Est GFR (Non-Af Amer) POC Glucose (mg/dL) Random Glucose Calcium Phosphorus Magnesium Total Bilirubin AST ALT Alkaline Phosphatase Troponin I Total Protein Albumin Globulin Albumin/Globulin Ratio Venous Blood Potassium 12/14/17 07:20 WBC RBC Hgb Hct MCV MCH MCHC RDW Plt Count MPV Neut % (Auto) Lymph % (Auto) [place] % (Auto) Eos % (Auto) Baso % (Auto) Neut # (Auto) Lymph # (Auto) [place] # (Auto) Eos # (Auto) Baso # (Auto) Neutrophils % (Manual) Band Neutrophils % Lymphocytes % (Manual) Monocytes % (Manual) Myelocytes % Platelet Estimate Hypochromasia (manual) Poikilocytosis (manual Anisocytosis (manual) PT INR APTT Puncture Site pCO2 pO2 HCO3 ABG pH ABG Total CO2 ABG Base Excess Daniel Test VBG pH VBG pCO2 VBG HCO3 VBG Total CO2 VBG O2 Sat (Calc) VBG Base Excess VBG Potassium Sodium 140 Chloride 102 Glucose Lactate Potassium 5.0 Carbon Dioxide 20 L Anion Gap 23 H BUN 45 H Creatinine 7.3 H Est GFR ( Amer) 10 Est GFR (Non-Af Amer) 8 POC Glucose (mg/dL) Random Glucose 132 H Calcium 8.1 L Phosphorus 8.7 H Magnesium 2.6 H Total Bilirubin 8.7 H AST 27 ALT 11 L D Alkaline Phosphatase 233 H Troponin I Total Protein 7.0 Albumin 3.1 L Globulin 4.0 H Albumin/Globulin Ratio 0.8 L Venous Blood Potassium Assessment & Plan (1) Diabetes mellitus Status: Acute (2) Fever Status: Acute (3) Obesity Status: Acute (4) Sepsis Status: Acute (5) Bacteremia Status: Chronic (6) PVD (peripheral vascular disease) Status: Chronic - Assessment and Plan (Free Text) Assessment: 47 yo male with CKD on HD was recently admitted for sepsis / bacteremia to [facility] c/o backpain and KYLAH done to r/o endocarditis Blood cultures now negaive s/p cardiac arrest / arrythmia has cad and may need surgery will cont iv antibotics consider neurosurg eval as well as MRI right foot Plan: consider MRI right foot when stable to r/o occult abscess / OM
--- NOTE | 2017-12-14 12:28 | CP.PCM.PN ---
Subjective - Date & Time of Evaluation Date of Evaluation: 12/14/17 Time of Evaluation: 10:50 - Subjective Subjective: Seen and examined this morning.sitting on the chair and using his phone,denies pain,no sob no nausea,no vomiting,poor appetite,no abdominal pain Objective - Vital Signs/Intake and Output Vital Signs (last 24 hours): Temp Pulse Resp BP Pulse Ox 97.9 F 72 16 114/69 100 12/14/17 12:00 12/14/17 12:00 12/14/17 12:00 12/14/17 11:57 12/14/17 12:00 Intake and Output: 12/14/17 12/14/17 06:59 18:59 Intake Total 486.5 1090.6 Output Total 0 0 Balance 486.5 1090.6 - Medications Medications: Current Medications Acetaminophen (Tylenol 325mg Tab) 650 mg PO Q6 PRN PRN Reason: Fever >100.4 F or Pain Last Admin: 12/14/17 04:33 Dose: 650 mg Aspirin (Ecotrin) 81 mg PO DAILY [facility] Last Admin: 12/14/17 09:12 Dose: 81 mg Clopidogrel Bisulfate (Plavix) 75 mg PO DAILY [facility] Last Admin: 12/14/17 09:12 Dose: 75 mg Dextrose (Dextrose 50% Inj) 0 ml IV STAT PRN; Protocol PRN Reason: Hypoglycemia Protocol Dextrose (Glutose 15) 0 gm PO ONCE PRN; Protocol PRN Reason: Hypoglycemia Protocol Famotidine (Pepcid) 40 mg PO DAILY [facility] Last Admin: 12/14/17 09:12 Dose: 40 mg Dextrose (Dextrose 5% In Water 1000 Ml) 1,000 mls @ 0 mls/hr IV .Q0M PRN; Protocol PRN Reason: Hypoglycemia Protocol Nafcillin Sodium 2 gm/ Sodium (Chloride) 250 mls @ 250 mls/hr IVPB Q6H [facility]; P rotocol Last Admin: 12/14/17 11:52 Dose: 250 mls/hr Vancomycin/Sodium Chloride (Vancomycin 1 Gm/Ns 200 Ml) 1 gm in 200 mls @ 133.333 mls/hr IVPB TTS [facility]; Protocol Stop: 12/19/17 10:01 Last Admin: 12/14/17 09:12 Dose: 133.333 mls/hr Heparin Sodium/Sodium Chloride (Heparin 68976 Units/250ml 1/2 Normal Saline) 25,000 units in 250 mls @ 10.115 mls/hr IV .Q24H PRN; Protocol PRN Reason: PROTOCOL Last Admin: 12/14/17 01:28 Dose: 10 units/kg/hr, 10.115 mls/hr Insulin Human Regular (Novolin R) 0 unit SC ACHS [facility]; Protocol Last Admin: 12/14/17 07:41 Dose: Not Given Metoprolol Tartrate (Lopressor) 25 mg PO BID [facility] Last Admin: 12/14/17 11:57 Dose: 25 mg Sevelamer Carbonate (Renvela) 1,600 mg PO TIDCC [facility] Last Admin: 12/14/17 11:52 Dose: 1,600 mg Vitamin B Complex/Vit C/Folic Acid (Nephro-Joesph) 1 tab PO 0800 [facility] Last Admin: 12/14/17 07:42 Dose: 1 tab - Labs Labs: 12/14/17 07:20 12/14/17 07:20 PT 14.1 SECONDS (9.7-12.2) H 12/14/17 07:20 INR 1.3 12/14/17 07:20 APTT 46 SECONDS (21-34) H 12/14/17 07:20 - Constitutional Appears: No Acute Distress, Older Than Stated Age, Chronically Ill - Head Exam Head Exam: NORMAL INSPECTION - Eye Exam Eye Exam: Normal appearance - ENT Exam ENT Exam: Mucous Membranes Moist - Neck Exam Neck Exam: Full ROM, Normal Inspection - Respiratory Exam Respiratory Exam: Clear to Ausculation Bilateral, NORMAL BREATHING PATTERN - Cardiovascular Exam Cardiovascular Exam: REGULAR RHYTHM - GI/Abdominal Exam GI & Abdominal Exam: Soft, Normal Bowel Sounds - Extremities Exam Extremities Exam: Full ROM - Back Exam Back Exam: NORMAL INSPECTION - Neurological Exam Neurological Exam: Awake, Oriented x3 - Psychiatric Exam Psychiatric exam: Normal Mood - Skin Skin Exam: Dry, Normal Color Assessment and Plan - Assessment and Plan (Free Text) Plan: 1. 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 Sepsis- MSSA bacteremia, KYLAH without vegetation - Tmax 102.5- afebrile since 12/11 - Blood Cx: MSSA - Nafcillin 2 g IV Q6H - Vancomycin 1 g IV TTS after HD - ID consulted (Gabriela) 4. Back pain, chronic - Lumbar MRI: L5-S1 disc degeneration, cannot exclude osteomyelitis (rec IV contrast but ESRD) - Pelvis, hip CT: no acute fx - Hip/pelvis XR: L inferior ramus fx - Tylenol 650 mg PO Q6H PRN 5. 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
--- NOTE | 2017-12-14 15:11 | CP.PCM.PN ---
Subjective - Date & Time of Evaluation Date of Evaluation: 12/14/17 Time of Evaluation: 14:10 - Subjective Subjective: Ko Yousif, PGY-[address] Cortes Patient seen and evaluated at bedside. Aunt and brother at bedside. Patient slid out of bed last evening without trauma. Patient sitting up in chair with mild discomfort. Patient reports some paroxysmal shortness of breath, lower back pain. Denies palpitations. S/P KYLAH, R femoral cardiac cath, [employer] and ROSC at [place] yesterday afternoon. Objective - Vital Signs/Intake and Output Vital Signs (last 24 hours): Temp Pulse Resp BP Pulse Ox 97.9 F 60 15 96/52 L 93 L 12/14/17 12:00 12/14/17 14:20 12/14/17 14:20 12/14/17 13:40 12/14/17 14:20 Intake and Output: 12/14/17 12/14/17 06:59 18:59 Intake Total 486.5 1210.8 Output Total 0 0 Balance 486.5 1210.8 - Medications Medications: Current Medications Acetaminophen (Tylenol 325mg Tab) 650 mg PO Q6 PRN PRN Reason: Fever >100.4 F or Pain Last Admin: 12/14/17 04:33 Dose: 650 mg Aspirin (Ecotrin) 81 mg PO DAILY [facility] Last Admin: 12/14/17 09:12 Dose: 81 mg Clopidogrel Bisulfate (Plavix) 75 mg PO DAILY [facility] Last Admin: 12/14/17 09:12 Dose: 75 mg Dextrose (Dextrose 50% Inj) 0 ml IV STAT PRN; Protocol PRN Reason: Hypoglycemia Protocol Dextrose (Glutose 15) 0 gm PO ONCE PRN; Protocol PRN Reason: Hypoglycemia Protocol Famotidine (Pepcid) 40 mg PO DAILY [facility] Last Admin: 12/14/17 09:12 Dose: 40 mg Dextrose (Dextrose 5% In Water 1000 Ml) 1,000 mls @ 0 mls/hr IV .Q0M PRN; Protocol PRN Reason: Hypoglycemia Protocol Nafcillin Sodium 2 gm/ Sodium (Chloride) 250 mls @ 250 mls/hr IVPB Q6H [facility]; Protocol Last Admin: 12/14/17 11:52 Dose: 250 mls/hr Vancomycin/Sodium Chloride (Vancomycin 1 Gm/Ns 200 Ml) 1 gm in 200 mls @ 133.333 mls/hr IVPB TTS [facility]; Protocol Stop: 12/19/17 10:01 Last Admin: 12/14/17 09:12 Dose: 133.333 mls/hr Heparin Sodium/Sodium Chloride (Heparin 46107 Units/250ml 1/2 Normal Saline) 25,000 units in 250 mls @ 10.115 mls/hr IV .Q24H PRN; Protocol PRN Reason: PROTOCOL Last Admin: 12/14/17 01:28 Dose: 10 units/kg/hr, 10.115 mls/hr Insulin Human Regular (Novolin R) 0 unit SC ACHS [facility]; Protocol Last Admin: 12/14/17 11:30 Dose: Not Given Metoprolol Tartrate (Lopressor) 25 mg PO BID [facility] Last Admin: 12/14/17 11:57 Dose: 25 mg Sevelamer Carbonate (Renvela) 1,600 mg PO TIDCC [facility] Last Admin: 12/14/17 11:52 Dose: 1,600 mg Vitamin B Complex/Vit C/Folic Acid (Nephro-Joesph) 1 tab PO 0800 [facility] Last Admin: 12/14/17 07:42 Dose: 1 tab - Labs Labs: 12/14/17 07:20 12/14/17 07:20 PT 14.1 SECONDS (9.7-12.2) H 12/14/17 07:20 INR 1.3 12/14/17 07:20 APTT 49 SECONDS (21-34) H 12/14/17 13:15 - Constitutional Appears: Non-toxic, No Acute Distress - Head Exam Head Exam: ATRAUMATIC, NORMOCEPHALIC - Cardiovascular Exam Cardiovascular Exam: Bradycardia, REGULAR RHYTHM, +S1, +S2 - GI/Abdominal Exam GI & Abdominal Exam: Soft. absent: Distended, Firm, Guarding, Rigid, Tenderness Additional comments: R Femoral cath site without signs of hematoma, no TTP, dressing c/d/i Assessment and Plan - Assessment and Plan (Free Text) Assessment: Assessment: 47 y/o male patient with PMHx of PVD, DMII with neuropathy, ESRD (HD T,Th,Sat) who presents with NSTEMI, MSSA bacteremia sepsis to r/o endocarditis and s/p complete heart cath at [place]. Plan: NSTEMI with elevated troponins - avoid hypotensive and bradycardic agents - Creatinine and troponins improving - s/p cardiac cath on 12/13- severe LAD calcified stenosis, moderate prox circumflex, moderate distal RCA, mild LV systolic dysfunction - TTE: EF 55-60% - KYLAH - no vegetations on prelim read - Metoprolol 25 mg PO BID - ASA 81 mg PO daily - Plavix 75 mg PO daily - Rosuvastatin 5 mg - Heparin drip - Staged surgical revascularization intervention, likely minimally invasive RAYMOND graft over bypass, after transfer and evaluation at [place] Patient seen, case discussed, plan approved by Dr. Cortes. Further recs per Dr. Cortes. Ko Yousif, PGY-1
--- NOTE | 2017-12-14 18:14 | CP.PCM.CON ---
History of Present Illness - History of Present Illness History of Present Illness: Podiatry Consult Note- Dr. Silva 47M with PMHx of DMII with neuropathy, PVD, ESRD on hemodialysis was seen and evaluated at bedside for lower extremity consultation. Patient is known to Dr. Silva and has been following up with Dr. Silva in office for continued care of lower extremity. Patient has history of lower extremity ulcerations and infection. Patient denies of any lower extremity pain. Denies any drainage or open wounds at this time. Past Patient History - Infectious Disease Hx of Infectious Diseases: None - Past Medical History & Family History Past Medical History?: Yes - Past Social History Smoking Status: Former Smoker Chewing Tobacco Use: No - CARDIAC Hx Congestive Heart Failure: No Hx Hypercholesterolemia: No Hx Hypertension: Yes - PULMONARY Hx Chronic Obstructive Pulmonary Disease (COPD): No - NEUROLOGICAL Hx Neurological Disorder: Yes Other/Comment: Hx Neuropathy - HEENT Hx HEENT Problems: Yes Hx Cataracts: Yes - RENAL Hx Chronic Kidney Disease: Yes - ENDOCRINE/METABOLIC Hx Hypothyroidism: No - HEMATOLOGICAL/ONCOLOGICAL Hx Human Immunodeficiency Virus (HIV): No - INTEGUMENTARY Hx Dermatological Problems: Yes Other/Comment: Hx Bilateral foot ulcers - MUSCULOSKELETAL/RHEUMATOLOGICAL Hx Arthritis: No Hx Rheumatoid Arthritis: No - GASTROINTESTINAL Hx Gastrointestinal Disorders: No - GENITOURINARY/GYNECOLOGICAL Hx Genitourinary Disorders: No - PSYCHIATRIC Hx Psychophysiologic Disorder: Yes Hx Depression: Yes Hx Substance Use: No - SURGICAL HISTORY Hx Surgeries: Yes Hx Amputation: Yes (Right TMA, Left 4th toe) Hx Cataract Extraction: Yes (Right eye - 2008) Hx Vascular Access Device: Yes (Right arm A-V fistula) Other/Comment: Hx of Insertion and removal of permacth for HD - ANESTHESIA Hx Anesthesia: Yes Hx Anesthesia Reactions: No Hx Malignant Hyperthermia: No Meds Allergies/Adverse Reactions: Allergies Allergy/AdvReac Type Severity Reaction Status Date / Time shellfish Allergy ITCHING Uncoded 12/06/17 05:22 - Medications Medications: Current Medications Acetaminophen (Tylenol 325mg Tab) 650 mg PO Q6 PRN PRN Reason: Fever >100.4 F or Pain Last Admin: 12/14/17 04:33 Dose: 650 mg Aspirin (Ecotrin) 81 mg PO DAILY [facility] Last Admin: 12/14/17 09:12 Dose: 81 mg Clopidogrel Bisulfate (Plavix) 75 mg PO DAILY [facility] Last Admin: 12/14/17 09:12 Dose: 75 mg Dextrose (Dextrose 50% Inj) 0 ml IV STAT PRN; Protocol PRN Reason: Hypoglycemia Protocol Dextrose (Glutose 15) 0 gm PO ONCE PRN; Protocol PRN Reason: Hypoglycemia Protocol Famotidine (Pepcid) 40 mg PO DAILY [facility] Last Admin: 12/14/17 09:12 Dose: 40 mg Dextrose (Dextrose 5% In Water 1000 Ml) 1,000 mls @ 0 mls/hr IV .Q0M PRN; Protocol PRN Reason: Hypoglycemia Protocol Nafcillin Sodium 2 gm/ Sodium (Chloride) 250 mls @ 250 mls/hr IVPB Q6H [facility]; Protocol Last Admin: 12/14/17 17:55 Dose: 250 mls/hr Vancomycin/Sodium Chloride (Vancomycin 1 Gm/Ns 200 Ml) 1 gm in 200 mls @ 133.333 mls/hr IVPB TTS [facility]; Protocol Stop: 12/19/17 10:01 Last Admin: 12/14/17 09:12 Dose: 133.333 mls/hr Heparin Sodium/Sodium Chloride (Heparin 32672 Units/250ml 1/2 Normal Saline) 25,000 units in 250 mls @ 10.115 mls/hr IV .Q24H PRN; Protocol PRN Reason: PROTOCOL Last Admin: 12/14/17 01:28 Dose: 10 units/kg/hr, 10.115 mls/hr Insulin Human Regular (Novolin R) 0 unit SC ACHS [facility]; Protocol Last Admin: 12/14/17 16:51 Dose: 2 u Metoprolol Tartrate (Lopressor) 25 mg PO BID [facility] Last Admin: 12/14/17 17:54 Dose: Not Given Rosuvastatin Calcium (Crestor) 5 mg PO HS [facility] Sevelamer Carbonate (Renvela) 1,600 mg PO TIDCC [facility] Last Admin: 12/14/17 16:52 Dose: 1,600 mg Vitamin B Complex/Vit C/Folic Acid (Nephro-Joesph) 1 tab PO 0800 [facility] Last Admin: 12/14/17 07:42 Dose: 1 tab Physical Exam - Constitutional Appears: Well, Non-toxic, No Acute Distress - Extremities Exam Extremities exam: Negative for: calf tenderness Additional comments: B/L Lower Extremity Exam Vasc: R/L DP 1/4 and PT 2/4, CFT < 3 seconds x 4 to the Left, TG increased temperature noted bilaterally, no pedal edema Ortho: No pain upon palpation, TMA to the right foot, and previous amputation of the left fourth and partial fifth digits, no pain with ankle range of motion Neuro: Epicritic and protective sensation grossly diminished b/l Derm: RLE- plantar hyperkeratotic lesion noted with no surrounding erythema noted, no open wounds, no malodor, mild sanginous weeping, no clinical signs of infection, significant plantar and dorsal xerosis noted; LLE- Plantar hyp erkeratotic lesion submet 1, no open wounds, no drainage, no clinical signs of infection Results - Vital Signs Recent Vital Signs: Last Vital Signs Temp 97.8 F 12/14/17 16:00 Pulse 67 12/14/17 16:20 Resp 14 12/14/17 16:20 BP 84/43 L 12/14/17 17:54 Pulse Ox 98 12/14/17 16:20 - Labs Result Diagrams: 12/14/17 07:20 12/14/17 07:20 Labs: Laboratory Results - last 24 hr 12/13/17 12/13/17 12/14/17 23:42 23:56 07:20 WBC 15.4 H RBC 3.08 L Hgb 9.9 L Hct 28.8 L MCV 93.5 MCH 32.2 H MCHC 34.5 RDW 15.6 H Plt Count 160 MPV 9.8 Neut % (Auto) 91.1 H Lymph % (Auto) 4.1 L [place] % (Auto) 4.3 Eos % (Auto) 0.0 Baso % (Auto) 0.5 Neut # (Auto) 14.0 H Lymph # (Auto) 0.6 L [place] # (Auto) 0.7 Eos # (Auto) 0.0 Baso # (Auto) 0.1 Neutrophils % (Manual) 91 H Lymphocytes % (Manual) 6 L Monocytes % (Manual) 3 Platelet Estimate Normal Hypochromasia (manual) Slight Poikilocytosis (manual Slight Anisocytosis (manual) Slight PT INR APTT 44 H Sodium Potassium Chloride Carbon Dioxide Anion Gap BUN Creatinine Est GFR ( Amer) Est GFR (Non-Af Amer) POC Glucose (mg/dL) 127 H Random Glucose Calcium Phosphorus Magnesium Total Bilirubin AST ALT Alkaline Phosphatase Total Protein Albumin Globulin Albumin/Globulin Ratio 12/14/17 12/14/17 12/14/17 07:20 07:20 07:32 WBC RBC Hgb Hct MCV MCH MCHC RDW Plt Count MPV Neut % (Auto) Lymph % (Auto) [place] % (Auto) Eos % (Auto) Baso % (Auto) Neut # (Auto) Lymph # (Auto) [place] # (Auto) Eos # (Auto) Baso # (Auto) Neutrophils % (Manual) Lymphocytes % (Manual) Monocytes % (Manual) Platelet Estimate Hypochromasia (manual) Poikilocytosis (manual Anisocytosis (manual) PT 14.1 H INR 1.3 APTT 46 H Sodium 140 Potassium 5.0 Chloride 102 Carbon Dioxide 20 L Anion Gap 23 H BUN 45 H Creatinine 7.3 H Est GFR ( Amer) 10 Est GFR (Non-Af Amer) 8 POC Glucose (mg/dL) 141 H Random Glucose 132 H Calcium 8.1 L Phosphorus 8.7 H Magnesium 2.6 H Total Bilirubin 8.7 H AST 27 ALT 11 L D Alkaline Phosphatase 233 H Total Protein 7.0 Albumin 3.1 L Globulin 4.0 H Albumin/Globulin Ratio 0.8 L 12/14/17 12/14/17 11:41 13:15 WBC RBC Hgb Hct MCV MCH MCHC RDW Plt Count MPV Neut % (Auto) Lymph % (Auto) [place] % (Auto) Eos % (Auto) Baso % (Auto) Neut # (Auto) Lymph # (Auto) [place] # (Auto) Eos # (Auto) Baso # (Auto) Neutrophils % (Manual) Lymphocytes % (Manual) Monocytes % (Manual) Platelet Estimate Hypochromasia (manual) Poikilocytosis (manual Anisocytosis (manual) PT INR APTT 49 H Sodium Potassium Chloride Carbon Dioxide Anion Gap BUN Creatinine Est GFR ( Amer) Est GFR (Non-Af Amer) POC Glucose (mg/dL) 143 H Random Glucose Calcium Phosphorus Magnesium Total Bilirubin AST ALT Alkaline Phosphatase Total Protein Albumin Globulin Albumin/Globulin Ratio Assessment & Plan - Assessment and Plan (Free Text) Assessment: 47 yo male patient seen and evaluated for b/l hyperkeratotic lesions- no clini luanne signs of infection in lower extremities Plan: Patient seen and evaluated Plan discussed with Dr. Silva WBC = 21.1 likely not from lower extremities Right TMA site dressed with DSD Left foot dressed with DSD Will order multipodus boots for patient. Patient to wear boots at all times while in bed Podiatry will continue to follow while patient in house Thank you for allowing us to participate in patient's care
--- NOTE | 2017-12-14 20:07 | CP.PCM.PN ---
Subjective - Date & Time of Evaluation Date of Evaluation: 12/14/17 Time of Evaluation: 17:00 - Subjective Subjective: SEEN IN ICU ON RENAL F/U HAD HD LAST NIGHT .. TOLERATED WELL AWAITING FOR TRANSFERE TO [facility] ALL PREVIOUS EMR REVIEWED Objective - Vital Signs/Intake and Output Vital Signs (last 24 hours): Temp Pulse Resp BP Pulse Ox 97.8 F 71 16 99/55 L 98 12/14/17 16:00 12/14/17 19:30 12/14/17 19:30 12/14/17 18:40 12/14/17 19:30 Intake and Output: 12/14/17 12/15/17 18:59 06:59 Intake Total 2251.2 10.1 Output Total 0 Balance 2251.2 10.1 - Medications Medications: Current Medications Acetaminophen (Tylenol 325mg Tab) 650 mg PO Q6 PRN PRN Reason: Fever >100.4 F or Pain Last Admin: 12/14/17 04:33 Dose: 650 mg Aspirin (Ecotrin) 81 mg PO DAILY [facility] Last Admin: 12/14/17 09:12 Dose: 81 mg Clopidogrel Bisulfate (Plavix) 75 mg PO DAILY [facility] Last Admin: 12/14/17 09:12 Dose: 75 mg Dextrose (Dextrose 50% Inj) 0 ml IV STAT PRN; Protocol PRN Reason: Hypoglycemia Protocol Dextrose (Glutose 15) 0 gm PO ONCE PRN; Protocol PRN Reason: Hypoglycemia Protocol Famotidine (Pepcid) 40 mg PO DAILY [facility] Last Admin: 12/14/17 09:12 Dose: 40 mg Dextrose (Dextrose 5% In Water 1000 Ml) 1,000 mls @ 0 mls/hr IV .Q0M PRN; Protocol PRN Reason: Hypoglycemia Protocol Nafcillin Sodium 2 gm/ Sodium (Chloride) 250 mls @ 250 mls/hr IVPB Q6H [facility]; Protocol Last Admin: 12/14/17 17:55 Dose: 250 mls/hr Vancomycin/Sodium Chloride (Vancomycin 1 Gm/Ns 200 Ml) 1 gm in 200 mls @ 133.333 mls/hr IVPB TTS [facility]; Protocol Stop: 12/19/17 10:01 Last Admin: 12/14/17 09:12 Dose: 133.333 mls/hr Heparin Sodium/Sodium Chloride (Heparin 73272 Units/250ml 1/2 Normal Saline) 25,000 units in 250 mls @ 10.115 mls/hr IV .Q24H PRN; Protocol PRN Reason: PROTOCOL Last Admin: 12/14/17 18:33 Dose: 10 units/kg/hr, 10.115 mls/hr Insulin Human Regular (Novolin R) 0 unit SC ACHS [facility]; Protocol Last Admin: 12/14/17 16:51 Dose: 2 u Metoprolol Tartrate (Lopressor) 25 mg PO BID [facility] Last Admin: 12/14/17 17:54 Dose: Not Given Rosuvastatin Calcium (Crestor) 5 mg PO HS [facility] Sevelamer Carbonate (Renvela) 1,600 mg PO TIDCC [facility] Last Admin: 12/14/17 16:52 Dose: 1,600 mg Vitamin B Complex/Vit C/Folic Acid (Nephro-Joesph) 1 tab PO 0800 [facility] Last Admin: 12/14/17 07:42 Dose: 1 tab - Labs Labs: 12/14/17 07:20 12/14/17 07:20 PT 14.1 SECONDS (9.7-12.2) H 12/14/17 07:20 INR 1.3 12/14/17 07:20 APTT 49 SECONDS (21-34) H 12/14/17 13:15 Assessment and Plan - Assessment and Plan (Free Text) Assessment: ESRD ON HD ..TO BE C/O ANEMIA OF CKD .. ON EPO HYPERKALEMIA .. RESOLVED WITH HD LAST NIGHT NSTEMI .. S/P C CATH SEPSIS LOWER BACK OSTEO MMP P : C/O WITH HD C/O CURRENT MEDS AWAITING TRANSFERE TO [facility]
[2017-12-15 06:14] LABS: BASO # 0.1 K/uL (0.0-0.2); BASO % 0.6 % (0.0-2.0); EOS % 0.1 % (0.0-4.0); HEMOGLOBIN 9.6 g/dL (12.0-18.0); LYMPH # 0.8 K/uL (1.0-4.3); LYMPH % 6.8 % (20.0-40.0); MEAN CELL VOLUME 93.8 fL (80.0-94.0); MEAN CORPUSCULAR HEMOGLOBIN 32.2 pg (27.0-31.0); MEAN CORPUSCULAR HGB CONC 34.4 g/dL (33.0-37.0); MONO # 0.5 K/uL (0.0-0.8); MONO % 4.1 % (0.0-10.0); NEUT # 10.1 K/uL (1.8-7.0); NEUT % 88.4 % (50.0-75.0); NRBC % 0.2 % (0.0-2.0); PLATELET COUNT 160 K/uL (130-400); RBC 2.99 Mil/uL (4.40-5.90); RED CELL DISTRIBUTION WIDTH 15.8 % (11.5-14.5); WHITE BLOOD COUNT 11.4 K/uL (4.8-10.8)
[2017-12-15 06:31] LABS: ALB/GLOB RATIO 0.8 (1.0-2.1); ALBUMIN 3.1 g/dL (3.5-5.0); CALCIUM 8.1 mg/dl (8.6-10.4)
[2017-12-15] MEDS: (Novolin R) Insulin Human Regular 100 units/ml vial SC SCH ×4 (07:49→23:32)
[2017-12-15] MEDS ORDERED: Heparin25000 units/250ml 1/2NS 25,000 UNITS/250 ML BAG IV PRN ×2 (08:00→10:39)
--- NOTE | 2017-12-15 08:04 | CP.CCUPN ---
<Carolina Edwards - Last Filed: 12/15/17 12:04> CCU Subjective - Physician Review Events Since Last Encounter (Free Text): 12/15/17 08:03 no over night events Subjective (Free Text): 12/15/17 08:03 Patient was seen and examined this morning. He has no acute complaints. He is getting HD. No chest pain. Chronic back pain. Saturating well on RA. AWaiting [place] transfer. Critical Care Time Spent (in minutes): 35 CCU Objective - Vital Signs / Intake & Output Vital Signs (Last 4 hours): Vital Signs Pulse Resp BP Pulse Ox 12/15/17 07:00 72 16 96 12/15/17 06:40 78 18 107/64 96 12/15/17 06:00 72 17 96 12/15/17 05:40 79 17 107/61 96 12/15/17 05:00 80 16 98 12/15/17 04:40 72 17 98/58 L 97 Intake and Output (Last 8hrs): Intake & Output 12/14/17 12/15/17 12/15/17 22:59 06:59 14:59 Intake Total 1200.8 80.8 250.1 Balance 1200.8 80.8 250.1 Weight 170 lb 13.13 oz Intake: IV 250 Intake, IV Amount 590.8 80.8 10.1 Left Antecubital 340.8 80.8 10.1 left ac 2nd port 250 Oral 360 240 Other: # Voids Urine, Voided 0 0 0 # Bowel Movements 0 0 0 - Physical Exam Head: Positive for: Atraumatic, Normocephalic Pupils: Positive for: PERRL Extroacular Muscles: Positive for: EOMI Conjunctiva: Positive for: Normal Mouth: Positive for: Moist Mucous Membranes Neck: Positive for: Normal Range of Motion Respiratory/Chest: Positive for: Clear to Auscultation, Good Air Exchange. Negative for: Respiratory Distress, Accessory Muscle Use Cardiovascular: Positive for: Regular Rate and Rhythm, Normal S1, S2. Negative for: Murmurs Abdomen: Negative for: Tenderness, Distention, Peritoneal Signs Upper Extremity: Positive for: Other (LUE edema, ecchymosis on dorsal surface of hand, RUE AV fistula, 2 nodular elevations, nontender) Lower Extremity: Positive for: Other (LLE L 4th digit amputation, R TMA, b/l LE skin changes 2/2 PVD) Neurological: Positive for: GCS=15, CN II-XII Intact, Speech Normal Skin: Positive for: Warm, Dry, Normal Color. Negative for: Rashes - Medications Active Medications: Active Medications Generic Name Dose Route Start Last Admin Trade Name Freq PRN Reason Stop Dose Admin Acetaminophen 650 mg 12/13/17 17:42 12/14/17 04:33 Tylenol 325mg Tab PO 650 mg Q6 PRN Administration Fever >100.4 F or Pain Aspirin 81 mg 12/14/17 10:00 12/14/17 09:12 Ecotrin PO 81 mg DAILY LOYDA Administration Clopidogrel Bisulfate 75 mg 12/14/17 10:00 12/14/17 09:12 Plavix PO 75 mg DAILY LOYDA Administration Dextrose 0 ml 12/13/17 17:12 Dextrose 50% Inj IV STAT PRN Hypoglycemia Protocol Protocol Dextrose 0 gm 12/13/17 17:12 Glutose 15 PO ONCE PRN Hypoglycemia Protocol Protocol Famotidine 40 mg 12/14/17 10:00 12/14/17 09:12 Pepcid PO 40 mg DAILY LOYDA Administration Dextrose 1,000 mls @ 0 mls/hr 12/13/17 17:25 Dextrose 5% In Water 1000 Ml IV .Q0M PRN Hypoglycemia Protocol Protocol Per Protocol Nafcillin Sodium 2 gm/ Sodium 250 mls @ 250 mls/hr 12/13/17 18:30 12/15/17 06:03 Chloride IVPB 250 mls/hr Q6H LOYDA Administration Protocol Vancomycin/Sodium Chloride 1 gm in 200 mls @ 133.333 mls/hr 12/14/17 10:00 12/14/17 09:12 Vancomycin 1 Gm/Ns 200 Ml IVPB 12/19/17 10:01 133.333 mls/hr TTS LOYDA Administration Protocol Heparin Sodium/Sodium Chloride 25,000 units in 250 mls @ 12.138 mls/hr 12/15/17 08:00 Heparin 71518 Units/250ml 1/2 Normal Saline IV .[id number] PRN PROTOCOL Protocol 12 UNITS/KG/HR Insulin Human Regular 0 unit 12/13/17 22:00 12/15/17 07:49 Novolin R SC Not Given ACHS LOYDA Protocol Metoprolol Tartrate 25 mg 12/13/17 18:00 11/06/18 17:54 Lopressor PO Not Given BID LOYDA Rosuvastatin Calcium 5 mg 12/14/17 22:00 12/14/17 21:04 Crestor PO 5 mg HS LOYDA Administration Sevelamer Carbonate 1,600 mg 12/14/17 08:00 12/14/17 16:52 Renvela PO 1,600 mg TIDCC LOYDA Administration Vitamin B Complex/Vit C/Folic Acid 1 tab 12/14/17 08:00 12/14/17 07:42 Nephro-Joesph PO 1 tab 0800 LOYDA Administration - Patient Studies Lab Studies: Lab Studies 12/15/17 12/15/17 12/15/17 Range/Units 07:29 06:01 06:01 WBC (4.8-10.8) K/uL RBC (4.40-5.90) Mil/uL Hgb (12.0-18.0) g/dL Hct (35.0-51.0) % MCV (80.0-94.0) fL MCH (27.0-31.0) pg MCHC (33.0-37.0) g/dL RDW (11.5-14.5) % Plt Count (130-400) K/uL MPV (7.2-11.7) fL Neut % (Auto) (50.0-75.0) % Lymph % (Auto) (20.0-40.0) % [place] % (Auto) (0.0-10.0) % Eos % (Auto) (0.0-4.0) % Baso % (Auto) (0.0-2.0) % Neut # (Auto) (1.8-7.0) K/uL Lymph # (Auto) (1.0-4.3) K/uL [place] # (Auto) (0.0-0.8) K/uL Eos # (Auto) (0.0-0.7) K/uL Baso # (Auto) (0.0-0.2) K/uL Neutrophils % (Manual) (50-75) % Lymphocytes % (Manual) (20-40) % Monocytes % (Manual) (0-10) % Platelet Estimate (NORMAL) Hypochromasia (manual) Poikilocytosis (manual Anisocytosis (manual) APTT 43 H D (21-34) SECONDS Sodium 136 (132-148) mmol/L Potassium 5.0 (3.6-5.2) mmol/L Chloride 99 (98-107) mmol/L Carbon Dioxide 18 L (22-30) mmol/L Anion Gap 24 H (10-20) BUN 57 H (9-20) mg/dL Creatinine 8.2 H* (0.8-1.5) mg/dL Est GFR ( Amer) 9 Est GFR (Non-Af Amer) 7 POC Glucose (mg/dL) 87 (65-110) mg/dL Random Glucose 97 (75-110) mg/dL Calcium 8.1 L (8.6-10.4) mg/dl Phosphorus 8.4 H (2.5-4.5) mg/dL Magnesium 2.6 H (1.6-2.3) mg/dL Total Bilirubin 6.8 H (0.2-1.3) mg/dL AST 26 (17-59) U/L ALT 13 L (21-72) U/L Alkaline Phosphatase 236 H (38-126) U/L Total Protein 7.1 (6.3-8.3) g/dL Albumin 3.1 L (3.5-5.0) g/dL Globulin 4.0 H (2.2-3.9) gm/dL Albumin/Globulin Ratio 0.8 L (1.0-2.1) Hep Bs Antigen (NEGATIVE) 12/15/17 12/14/17 12/14/17 Range/Units 06:01 21:10 18:47 WBC 11.4 H (4.8-10.8) K/uL RBC 2.99 L (4.40-5.90) Mil/uL Hgb 9.6 L (12.0-18.0) g/dL Hct 28.0 L (35.0-51.0) % MCV 93.8 (80.0-94.0) fL MCH 32.2 H (27.0-31.0) pg MCHC 34.4 (33.0-37.0) g/dL RDW 15.8 H (11.5-14.5) % Plt Count 160 (130-400) K/uL MPV 9.0 (7.2-11.7) fL Neut % (Auto) 88.4 H (50.0-75.0) % Lymph % (Auto) 6.8 L (20.0-40.0) % [place] % (Auto) 4.1 (0.0-10.0) % Eos % (Auto) 0.1 (0.0-4.0) % Baso % (Auto) 0.6 (0.0-2.0) % Neut # (Auto) 10.1 H (1.8-7.0) K/uL Lymph # (Auto) 0.8 L (1.0-4.3) K/uL [place] # (Auto) 0.5 (0.0-0.8) K/uL Eos # (Auto) 0.0 (0.0-0.7) K/uL Baso # (Auto) 0.1 (0.0-0.2) K/uL Neutrophils % (Manual) (50-75) % Lymphocytes % (Manual) (20-40) % Monocytes % (Manual) (0-10) % Platelet Estimate (NORMAL) Hypochromasia (manual) Poikilocytosis (manual Anisocytosis (manual) APTT (21-34) SECONDS Sodium (132-148) mmol/L Potassium (3.6-5.2) mmol/L Chloride (98-107) mmol/L Carbon Dioxide (22-30) mmol/L Anion Gap (10-20) BUN (9-20) mg/dL Creatinine (0.8-1.5) mg/dL Est GFR ( Amer) Est GFR (Non-Af Amer) POC Glucose (mg/dL) 116 H (65-110) mg/dL Random Glucose (75-110) mg/dL Calcium (8.6-10.4) mg/dl Phosphorus (2.5-4.5) mg/dL Magnesium (1.6-2.3) mg/dL Total Bilirubin (0.2-1.3) mg/dL AST (17-59) U/L ALT (21-72) U/L Alkaline Phosphatase (38-126) U/L Total Protein (6.3-8.3) g/dL Albumin (3.5-5.0) g/dL Globulin (2.2-3.9) gm/dL Albumin/Globulin Ratio (1.0-2.1) Hep Bs Antigen Negative (NEGATIVE) 12/14/17 12/14/17 12/14/17 Range/Units 16:10 13:15 11:41 WBC (4.8-10.8) K/uL RBC (4.40-5.90) Mil/uL Hgb (12.0-18.0) g/dL Hct (35.0-51.0) % MCV (80.0-94.0) fL MCH (27.0-31.0) pg MCHC (33.0-37.0) g/dL RDW (11.5-14.5) % Plt Count (130-400) K/uL MPV (7.2-11.7) fL Neut % (Auto) (50.0-75.0) % Lymph % (Auto) (20.0-40.0) % [place] % (Auto) (0.0-10.0) % Eos % (Auto) (0.0-4.0) % Baso % (Auto) (0.0-2.0) % Neut # (Auto) (1.8-7.0) K/uL Lymph # (Auto) (1.0-4.3) K/uL [place] # (Auto) (0.0-0.8) K/uL Eos # (Auto) (0.0-0.7) K/uL Baso # (Auto) (0.0-0.2) K/uL Neutrophils % (Manual) (50-75) % Lymphocytes % (Manual) (20-40) % Monocytes % (Manual) (0-10) % Platelet Estimate (NORMAL) Hypochromasia (manual) Poikilocytosis (manual Anisocytosis (manual) APTT 49 H (21-34) SECONDS Sodium (132-148) mmol/L Potassium (3.6-5.2) mmol/L Chloride (98-107) mmol/L Carbon Dioxide (22-30) mmol/L Anion Gap (10-20) BUN (9-20) mg/dL Creatinine (0.8-1.5) mg/dL Est GFR ( Amer) Est GFR (Non-Af Amer) POC Glucose (mg/dL) 167 H 143 H (65-110) mg/dL Random Glucose (75-110) mg/dL Calcium (8.6-10.4) mg/dl Phosphorus (2.5-4.5) mg/dL Magnesium (1.6-2.3) mg/dL Total Bilirubin (0.2-1.3) mg/dL AST (17-59) U/L ALT (21-72) U/L Alkaline Phosphatase (38-126) U/L Total Protein (6.3-8.3) g/dL Albumin (3.5-5.0) g/dL Globulin (2.2-3.9) gm/dL Albumin/Globulin Ratio (1.0-2.1) Hep Bs Antigen (NEGATIVE) 12/14/17 12/14/17 12/14/17 Range/Units 07:32 07:20 07:20 WBC (4.8-10.8) K/uL RBC (4.40-5.90) Mil/uL Hgb (12.0-18.0) g/dL Hct (35.0-51.0) % MCV (80.0-94.0) fL MCH (27.0-31.0) pg MCHC (33.0-37.0) g/dL RDW (11.5-14.5) % Plt Count (130-400) K/uL MPV (7.2-11.7) fL Neut % (Auto) (50.0-75.0) % Lymph % (Auto) (20.0-40.0) % [place] % (Auto) (0.0-10.0) % Eos % (Auto) (0.0-4.0) % Baso % (Auto) (0.0-2.0) % Neut # (Auto) (1.8-7.0) K/uL Lymph # (Auto) (1.0-4.3) K/uL [place] # (Auto) (0.0-0.8) K/uL Eos # (Auto) (0.0-0.7) K/uL Baso # (Auto) (0.0-0.2) K/uL Neutrophils % (Manual) 91 H (50-75) % Lymphocytes % (Manual) 6 L (20-40) % Monocytes % (Manual) 3 (0-10) % Platelet Estimate Normal (NORMAL) Hypochromasia (manual) Slight Poikilocytosis (manual Slight Anisocytosis (manual) Slight APTT (21-34) SECONDS Sodium 140 (132-148) mmol/L Potassium 5.0 (3.6-5.2) mmol/L Chloride 102 (98-107) mmol/L Carbon Dioxide 20 L (22-30) mmol/L Anion Gap 23 H (10-20) BUN 45 H (9-20) mg/dL Creatinine 7.3 H (0.8-1.5) mg/dL Est GFR ( Amer) 10 Est GFR (Non-Af Amer) 8 POC Glucose (mg/dL) 141 H (65-110) mg/dL Random Glucose 132 H (75-110) mg/dL Calcium 8.1 L (8.6-10.4) mg/dl Phosphorus 8.7 H (2.5-4.5) mg/dL Magnesium 2.6 H (1.6-2.3) mg/dL Total Bilirubin 8.7 H (0.2-1.3) mg/dL AST 27 (17-59) U/L ALT 11 L D (21-72) U/L Alkaline Phosphatase 233 H (38-126) U/L Total Protein 7.0 (6.3-8.3) g/dL Albumin 3.1 L (3.5-5.0) g/dL Globulin 4.0 H (2.2-3.9) gm/dL Albumin/Globulin Ratio 0.8 L (1.0-2.1) Hep Bs Antigen (NEGATIVE) Laboratory Results - last 24 hr 12/14/17 12/14/17 12/14/17 07:20 07:20 07:32 WBC RBC Hgb Hct MCV MCH MCHC RDW Plt Count MPV Neut % (Auto) Lymph % (Auto) [place] % (Auto) Eos % (Auto) Baso % (Auto) Neut # (Auto) Lymph # (Auto) [place] # (Auto) Eos # (Auto) Baso # (Auto) Neutrophils % (Manual) 91 H Lymphocytes % (Manual) 6 L Monocytes % (Manual) 3 Platelet Estimate Normal Hypochromasia (manual) Slight Poikilocytosis (manual Slight Anisocytosis (manual) Slight APTT Sodium 140 Potassium 5.0 Chloride 102 Carbon Dioxide 20 L Anion Gap 23 H BUN 45 H Creatinine 7.3 H Est GFR ( Amer) 10 Est GFR (Non-Af Amer) 8 POC Glucose (mg/dL) 141 H Random Glucose 132 H Calcium 8.1 L Phosphorus 8.7 H Magnesium 2.6 H Total Bilirubin 8.7 H AST 27 ALT 11 L D Alkaline Phosphatase 233 H Total Protein 7.0 Albumin 3.1 L Globulin 4.0 H Albumin/Globulin Ratio 0.8 L Hep Bs Antigen 12/14/17 12/14/17 12/14/17 11:41 13:15 16:10 WBC RBC Hgb Hct MCV MCH MCHC RDW Plt Count MPV Neut % (Auto) Lymph % (Auto) [place] % (Auto) Eos % (Auto) Baso % (Auto) Neut # (Auto) Lymph # (Auto) [place] # (Auto) Eos # (Auto) Baso # (Auto) Neutrophils % (Manual) Lymphocytes % (Manual) Monocytes % (Manual) Platelet Estimate Hypochromasia (manual) Poikilocytosis (manual Anisocytosis (manual) APTT 49 H Sodium Potassium Chloride Carbon Dioxide Anion Gap BUN Creatinine Est GFR ( Amer) Est GFR (Non-Af Amer) POC Glucose (mg/dL) 143 H 167 H Random Glucose Calcium Phosphorus Magnesium Total Bilirubin AST ALT Alkaline Phosphatase Total Protein Albumin Globulin Albumin/Globulin Ratio Hep Bs Antigen 12/14/17 12/14/17 12/15/17 18:47 21:10 06:01 WBC 11.4 H RBC 2.99 L Hgb 9.6 L Hct 28.0 L MCV 93.8 MCH 32.2 H MCHC 34.4 RDW 15.8 H Plt Count 160 MPV 9.0 Neut % (Auto) 88.4 H Lymph % (Auto) 6.8 L [place] % (Auto) 4.1 Eos % (Auto) 0.1 Baso % (Auto) 0.6 Neut # (Auto) 10.1 H Lymph # (Auto) 0.8 L [place] # (Auto) 0.5 Eos # (Auto) 0.0 Baso # (Auto) 0.1 Neutrophils % (Manual) Lymphocytes % (Manual) Monocytes % (Manual) Platelet Estimate Hypochromasia (manual) Poikilocytosis (manual Anisocytosis (manual) APTT Sodium Potassium Chloride Carbon Dioxide Anion Gap BUN Creatinine Est GFR ( Amer) Est GFR (Non-Af Amer) POC Glucose (mg/dL) 116 H Random Glucose Calcium Phosphorus Magnesium Total Bilirubin AST ALT Alkaline Phosphatase Total Protein Albumin Globulin Albumin/Globulin Ratio Hep Bs Antigen Negative 12/15/17 12/15/17 12/15/17 06:01 06:01 07:29 WBC RBC Hgb Hct MCV MCH MCHC RDW Plt Count MPV Neut % (Auto) Lymph % (Auto) [place] % (Auto) Eos % (Auto) Baso % (Auto) Neut # (Auto) Lymph # (Auto) [place] # (Auto) Eos # (Auto) Baso # (Auto) Neutrophils % (Manual) Lymphocytes % (Manual) Monocytes % (Manual) Platelet Estimate Hypochromasia (manual) Poikilocytosis (manual Anisocytosis (manual) APTT 43 H D Sodium 136 Potassium 5.0 Chloride 99 Carbon Dioxide 18 L Anion Gap 24 H BUN 57 H Creatinine 8.2 H* Est GFR ( Amer) 9 Est GFR (Non-Af Amer) 7 POC Glucose (mg/dL) 87 Random Glucose 97 Calcium 8.1 L Phosphorus 8.4 H Magnesium 2.6 H Total Bilirubin 6.8 H AST 26 ALT 13 L Alkaline Phosphatase 236 H Total Protein 7.1 Albumin 3.1 L Globulin 4.0 H Albumin/Globulin Ratio 0.8 L Hep Bs Antigen Fingerstick Blood Sugar Results: 116 Review of Systems - Review of Systems All systems: reviewed and no additional remarkable complaints except - Constitutional Constitutional: absent: Fever, Chills, Sweats - EENT Eyes: UNREMARKABLE Ears: UNREMARKABLE Nose/Mouth/Throat: UNREMARKABLE - Cardiovascular Cardiovascular: UNREMARKABLE. absent: Chest Pain, Diaphoresis, Dyspnea - Respiratory Respiratory: UNREMARKABLE. absent: Cough, Dyspnea - Gastrointestinal Gastrointestinal: UNREMARKABLE. absent: Abdominal Pain, Change in Bowel Habits, Nausea, Vomiting - Genitourinary Genitourinary: UNREMARKABLE - Musculoskeletal Musculoskeletal: Back Pain - Integumentary Integumentary: UNREMARKABLE - Neurological Neurological: UNREMARKABLE - Psychiatric Psychiatric: UNREMARKABLE Critical Care Progress Note - Extremities/Vascular Does the Patient have a Central Venous Catheter?: No Does the Patient need a Central Venous Catheter?: No Does the Patient have a Kolb Catheter?: No Does the Patient need a Kolb Catheter?: No - Prophylaxis GI Prophylaxis GI: Pepsid - Prophylaxis DVT Prophylaxis DVT: Not Indicated (heparin drip) - Nutrition Nutrition: Nutrition Category Date Time Status Heart Healthy Diet [DIET] Diets 12/13/17 Dinner Active Assessment/Plan - Assessment and Plan (Free Text) Assessment: Patient is a 47 yo male with history ESRD on HD, T2DM, PVD, and HTN who was admitted to [place] on 12/06/17 with generalized body aches, fever, and cough. He was found to be septic with positive blood cultures for MSSA. He was transferred to [facility] on 12/13 for cardiac cath due to elevated troponins. Following the completion of the cath, the patient went to have a BM and became unresponsive, pulseless with Vtach. Compressions were started and patient achieved ROSC after one shock. He is now on heparin drip. Plan is for patient to be transferred to [place] for heart surgery. Plan: Neuro: - No acute issues - CT head: no acute findings - Monitor mental status- post code blue CV: - s/p CLASSROOM AIDE/code blue- Vtach - Elevated troponins improving (0.139->0.873->.470) - No EKG changes - Heparin drip- monitor PTT - Cardiac cath 12/13- severely elevated filling pressure, mild LV dysfunction (EF 45%), LAD prox 70-80% and mid 95% stenosis, LCX 60%, RCA 55% - TTE: EF 55-60% - KYLAH: no vegetations - Metoprolol 25 mg PO BID - ASA 81 mg PO daily - Plavix 75 mg PO daily - Monitor vitals- hypotensive, not on pressors - Cardiology consulted (Sebastian)- transfer to [place] for surgery Pulm: - CXR: cardiomegaly, central vascular prominence, mild pulm venous congestions, patchy infiltrate or atelectasis at R hilar/infrahilar region - Maintain spO2>92%- supplemental O2 PRN - ABG 12/13: pH 7.26, pCO2 42, pO2 27, lactate 2.8 GI: - Heart healthy diet : - I's & O's - CMP daily - Replete electrolytes PRN - HD on TTS- presently on MWF while hospitalized - Sevelamer 1600 mg PO TID - Nephrovite daily - Nephrology consulted (Adrian) Endo: - Maintain euglycemia - Hypoglycemic protocol - Accuchecks with ISS ACHS Heme: - Anemia of chronic disease- Hgb (9.6) at baseline (10-19) - Monitor H&H ID: Sepsis (MSSA bacteremia)- r/o endocarditis - Tmax 102.5- afebrile since 12/11 - Tylenol 650 mg PO Q6H PRN - Leukocytosis improving (11.4) - ESR 114, CRP 159.2 - Procal 12.49 - Lactate 2.8 - Blood Cx: MSSA - Repeat blood Cx no growth >4 days - Nafcillin 2 g IV Q6H - Vancomycin 1 g IV TTS after HD - ID consulted (Gabriela) Integumentary: - Wound care consulted - Podiatry consulted (Ricardo) MSK: - Lumbar MRI: L5-S1 disc degeneration, cannot exclude osteomyelitis (rec IV contrast but ESRD) - Pelvis, hip CT: no acute fx - Hip/pelvis XR: L inferior ramus fx PPx: VTE: heparin drip GI: Pepcid 40 mg PO daily Code status: full code Case discussed with attending, Dr. Lai. PGY-1 Caroilna Edwards D.O. <Scott Lai S - Last Filed: 12/15/17 17:40> CCU Objective - Vital Signs / Intake & Output Intake and Output (Last 8hrs): Intake & Output 12/15/17 12/15/17 12/15/17 06:59 14:59 22:59 Intake Total 80.8 508.6 Balance 80.8 508.6 Weight 170 lb 13.13 oz Intake: Intake, IV Amount 80.8 68.6 Left Antecubital 80.8 68.6 Oral 440 Other: # Voids Urine, Voided 0 0 # Bowel Movements 0 0 - Medications Active Medications: Active Medications Generic Name Dose Route Start Last Admin Trade Name Freq PRN Reason Stop Dose Admin Acetaminophen 650 mg 12/13/17 17:42 12/15/17 09:20 Tylenol 325mg Tab PO 650 mg Q6 PRN Administration Fever >100.4 F or Pain Aspirin 81 mg 12/14/17 10:00 12/15/17 09:21 Ecotrin PO 81 mg DAILY LOYDA Administration Clopidogrel Bisulfate 75 mg 12/14/17 10:00 12/15/17 09:21 Plavix PO 75 mg DAILY LOYDA Administration Dextrose 0 ml 12/13/17 17:12 Dextrose 50% Inj IV STAT PRN Hypoglycemia Protocol Protocol Dextrose 0 gm 12/13/17 17:12 Glutose 15 PO ONCE PRN Hypoglycemia Protocol Protocol Famotidine 20 mg 12/16/17 10:00 Pepcid PO DAILY LOYDA Dextrose 1,000 mls @ 0 mls/hr 12/13/17 17:25 Dextrose 5% In Water 1000 Ml IV .Q0M PRN Hypoglycemia Protocol Protocol Per Protocol Nafcillin Sodium 2 gm/ Sodium 250 mls @ 250 mls/hr 12/13/17 18:30 12/15/17 13:51 Chloride IVPB 250 mls/hr Q6H LOYDA Administration Protocol Vancomycin/Sodium Chloride 1 gm in 200 mls @ 133.333 mls/hr 12/14/17 10:00 12/14/17 09:12 Vancomycin 1 Gm/Ns 200 Ml IVPB 12/19/17 10:01 133.333 mls/hr TTS LOYDA Administration Protocol Heparin Sodium/Sodium Chloride 25,000 units in 250 mls @ 16.184 mls/hr 12/15/17 15:47 12/15/17 15:52 Heparin 27603 Units/250ml 1/2 Normal Saline IV 16 units/kg/hr .[id number] PRN 16.184 mls/hr PROTOCOL Administration Protocol 16 UNITS/KG/HR Insulin Human Regular 0 unit 12/13/17 22:00 12/15/17 16:42 Novolin R SC Not Given ACHS [facility] Protocol Metoprolol Tartrate 25 mg 12/13/17 18:00 12/15/17 09:22 Lopressor PO Not Given BID [facility] Rosuvastatin Calcium 5 mg 12/14/17 22:00 12/14/17 21:04 Crestor PO 5 mg HS LOYDA Administration Sevelamer Carbonate 1,600 mg 12/14/17 08:00 12/15/17 13:51 Renvela PO 1,600 mg TIDCC LOYDA Administration Vitamin B Complex/Vit C/Folic Acid 1 tab 12/14/17 08:00 12/15/17 09:21 Nephro-Joesph PO 1 tab 0800 [facility] Administration - Patient Studies Lab Studies: Lab Studies 12/15/17 12/15/17 12/15/17 Range/Units 14:26 11:20 07:29 WBC (4.8-10.8) K/uL RBC (4.40-5.90) Mil/uL Hgb (12.0-18.0) g/dL Hct (35.0-51.0) % MCV (80.0-94.0) fL MCH (27.0-31.0) pg MCHC (33.0-37.0) g/dL RDW (11.5-14.5) % Plt Count (130-400) K/uL MPV (7.2-11.7) fL Neut % (Auto) (50.0-75.0) % Lymph % (Auto) (20.0-40.0) % [place] % (Auto) (0.0-10.0) % Eos % (Auto) (0.0-4.0) % Baso % (Auto) (0.0-2.0) % Neut # (Auto) (1.8-7.0) K/uL Lymph # (Auto) (1.0-4.3) K/uL [place] # (Auto) (0.0-0.8) K/uL Eos # (Auto) (0.0-0.7) K/uL Baso # (Auto) (0.0-0.2) K/uL Neutrophils % (Manual) (50-75) % Band Neutrophils % (0-2) % Lymphocytes % (Manual) (20-40) % Monocytes % (Manual) (0-10) % Platelet Estimate (NORMAL) Polychromasia Hypochromasia (manual) APTT 51 H D (21-34) SECONDS Sodium (132-148) mmol/L Potassium (3.6-5.2) mmol/L Chloride (98-107) mmol/L Carbon Dioxide (22-30) mmol/L Anion Gap (10-20) BUN (9-20) mg/dL Creatinine (0.8-1.5) mg/dL Est GFR ( Amer) Est GFR (Non-Af Amer) POC Glucose (mg/dL) 116 H 87 (65-110) mg/dL Random Glucose (75-110) mg/dL Calcium (8.6-10.4) mg/dl Phosphorus (2.5-4.5) mg/dL Magnesium (1.6-2.3) mg/dL Total Bilirubin (0.2-1.3) mg/dL AST (17-59) U/L ALT (21-72) U/L Alkaline Phosphatase (38-126) U/L Total Protein (6.3-8.3) g/dL Albumin (3.5-5.0) g/dL Globulin (2.2-3.9) gm/dL Albumin/Globulin Ratio (1.0-2.1) Hep Bs Antigen (NEGATIVE) 12/15/17 12/15/17 12/15/17 Range/Units 06:01 06:01 06:01 WBC 11.4 H (4.8-10.8) K/uL RBC 2.99 L (4.40-5.90) Mil/uL Hgb 9.6 L (12.0-18.0) g/dL Hct 28.0 L (35.0-51.0) % MCV 93.8 (80.0-94.0) fL MCH 32.2 H (27.0-31.0) pg MCHC 34.4 (33.0-37.0) g/dL RDW 15.8 H (11.5-14.5) % Plt Count 160 (130-400) K/uL MPV 9.0 (7.2-11.7) fL Neut % (Auto) 88.4 H (50.0-75.0) % Lymph % (Auto) 6.8 L (20.0-40.0) % [place] % (Auto) 4.1 (0.0-10.0) % Eos % (Auto) 0.1 (0.0-4.0) % Baso % (Auto) 0.6 (0.0-2.0) % Neut # (Auto) 10.1 H (1.8-7.0) K/uL Lymph # (Auto) 0.8 L (1.0-4.3) K/uL [place] # (Auto) 0.5 (0.0-0.8) K/uL Eos # (Auto) 0.0 (0.0-0.7) K/uL Baso # (Auto) 0.1 (0.0-0.2) K/uL Neutrophils % (Manual) 82 H (50-75) % Band Neutrophils % 1 (0-2) % Lymphocytes % (Manual) 11 L (20-40) % Monocytes % (Manual) 6 (0-10) % Platelet Estimate Normal (NORMAL) Polychromasia Slight Hypochromasia (manual) Slight APTT 43 H D (21-34) SECONDS Sodium 136 (132-148) mmol/L Potassium 5.0 (3.6-5.2) mmol/L Chloride 99 (98-107) mmol/L Carbon Dioxide 18 L (22-30) mmol/L Anion Gap 24 H (10-20) BUN 57 H (9-20) mg/dL Creatinine 8.2 H* (0.8-1.5) mg/dL Est GFR ( Amer) 9 Est GFR (Non-Af Amer) 7 POC Glucose (mg/dL) (65-110) mg/dL Random Glucose 97 (75-110) mg/dL Calcium 8.1 L (8.6-10.4) mg/dl Phosphorus 8.4 H (2.5-4.5) mg/dL Magnesium 2.6 H (1.6-2.3) mg/dL Total Bilirubin 6.8 H (0.2-1.3) mg/dL AST 26 (17-59) U/L ALT 13 L (21-72) U/L Alkaline Phosphatase 236 H (38-126) U/L Total Protein 7.1 (6.3-8.3) g/dL Albumin 3.1 L (3.5-5.0) g/dL Globulin 4.0 H (2.2-3.9) gm/dL Albumin/Globulin Ratio 0.8 L (1.0-2.1) Hep Bs Antigen (NEGATIVE) 12/14/17 12/14/17 12/14/17 Range/Units 21:10 18:47 16:10 WBC (4.8-10.8) K/uL RBC (4.40-5.90) Mil/uL Hgb (12.0-18.0) g/dL Hct (35.0-51.0) % MCV (80.0-94.0) fL MCH (27.0-31.0) pg MCHC (33.0-37.0) g/dL RDW (11.5-14.5) % Plt Count (130-400) K/uL MPV (7.2-11.7) fL Neut % (Auto) (50.0-75.0) % Lymph % (Auto) (20.0-40.0) % [place] % (Auto) (0.0-10.0) % Eos % (Auto) (0.0-4.0) % Baso % (Auto) (0.0-2.0) % Neut # (Auto) (1.8-7.0) K/uL Lymph # (Auto) (1.0-4.3) K/uL [place] # (Auto) (0.0-0.8) K/uL Eos # (Auto) (0.0-0.7) K/uL Baso # (Auto) (0.0-0.2) K/uL Neutrophils % (Manual) (50-75) % Band Neutrophils % (0-2) % Lymphocytes % (Manual) (20-40) % Monocytes % (Manual) (0-10) % Platelet Estimate (NORMAL) Polychromasia Hypochromasia (manual) APTT (21-34) SECONDS Sodium (132-148) mmol/L Potassium (3.6-5.2) mmol/L Chloride (98-107) mmol/L Carbon Dioxide (22-30) mmol/L Anion Gap (10-20) BUN (9-20) mg/dL Creatinine (0.8-1.5) mg/dL Est GFR ( Amer) Est GFR (Non-Af Amer) POC Glucose (mg/dL) 116 H 167 H (65-110) mg/dL Random Glucose (75-110) mg/dL Calcium (8.6-10.4) mg/dl Phosphorus (2.5-4.5) mg/dL Magnesium (1.6-2.3) mg/dL Total Bilirubin (0.2-1.3) mg/dL AST (17-59) U/L ALT (21-72) U/L Alkaline Phosphatase (38-126) U/L Total Protein (6.3-8.3) g/dL Albumin (3.5-5.0) g/dL Globulin (2.2-3.9) gm/dL Albumin/Globulin Ratio (1.0-2.1) Hep Bs Antigen Negative (NEGATIVE) Laboratory Results - last 24 hr 12/14/17 12/14/17 12/14/17 16:10 18:47 21:10 WBC RBC Hgb Hct MCV MCH MCHC RDW Plt Count MPV Neut % (Auto) Lymph % (Auto) [place] % (Auto) Eos % (Auto) Baso % (Auto) Neut # (Auto) Lymph # (Auto) [place] # (Auto) Eos # (Auto) Baso # (Auto) Neutrophils % (Manual) Band Neutrophils % Lymphocytes % (Manual) Monocytes % (Manual) Platelet Estimate Polychromasia Hypochromasia (manual) APTT Sodium Potassium Chloride Carbon Dioxide Anion Gap BUN Creatinine Est GFR ( Amer) Est GFR (Non-Af Amer) POC Glucose (mg/dL) 167 H 116 H Random Glucose Calcium Phosphorus Magnesium Total Bilirubin AST ALT Alkaline Phosphatase Total Protein Albumin Globulin Albumin/Globulin Ratio Hep Bs Antigen Negative 12/15/17 12/15/17 12/15/17 06:01 06:01 06:01 WBC 11.4 H RBC 2.99 L Hgb 9.6 L Hct 28.0 L MCV 93.8 MCH 32.2 H MCHC 34.4 RDW 15.8 H Plt Count 160 MPV 9.0 Neut % (Auto) 88.4 H Lymph % (Auto) 6.8 L [place] % (Auto) 4.1 Eos % (Auto) 0.1 Baso % (Auto) 0.6 Neut # (Auto) 10.1 H Lymph # (Auto) 0.8 L [place] # (Auto) 0.5 Eos # (Auto) 0.0 Baso # (Auto) 0.1 Neutrophils % (Manual) 82 H Band Neutrophils % 1 Lymphocytes % (Manual) 11 L Monocytes % (Manual) 6 Platelet Estimate Normal Polychromasia Slight Hypochromasia (manual) Slight APTT 43 H D Sodium 136 Potassium 5.0 Chloride 99 Carbon Dioxide 18 L Anion Gap 24 H BUN 57 H Creatinine 8.2 H* Est GFR ( Amer) 9 Est GFR (Non-Af Amer) 7 POC Glucose (mg/dL) Random Glucose 97 Calcium 8.1 L Phosphorus 8.4 H Magnesium 2.6 H Total Bilirubin 6.8 H AST 26 ALT 13 L Alkaline Phosphatase 236 H Total Protein 7.1 Albumin 3.1 L Globulin 4.0 H Albumin/Globulin Ratio 0.8 L Hep Bs Antigen 12/15/17 12/15/17 12/15/17 07:29 11:20 14:26 WBC RBC Hgb Hct MCV MCH MCHC RDW Plt Count MPV Neut % (Auto) Lymph % (Auto) [place] % (Auto) Eos % (Auto) Baso % (Auto) Neut # (Auto) Lymph # (Auto) [place] # (Auto) Eos # (Auto) Baso # (Auto) Neutrophils % (Manual) Band Neutrophils % Lymphocytes % (Manual) Monocytes % (Manual) Platelet Estimate Polychromasia Hypochromasia (manual) APTT 51 H D Sodium Potassium Chloride Carbon Dioxide Anion Gap BUN Creatinine Est GFR ( Amer) Est GFR (Non-Af Amer) POC Glucose (mg/dL) 87 116 H Random Glucose Calcium Phosphorus Magnesium Total Bilirubin AST ALT Alkaline Phosphatase Total Protein Albumin Globulin Albumin/Globulin Ratio Hep Bs Antigen Critical Care Progress Note - Nutrition Nutrition: Nutrition Category Date Time Status Heart Healthy Diet [DIET] Diets 12/13/17 Dinner Active Attending/Attestation - Attestation I have personally seen and examined this patient.: Yes I have fully participated in the care of the patient.: Yes I have reviewed all pertinent clinical information: Yes Notes (Text): 12/15/17 17:39 patient seen and examined in the intensive care unit. Continue hemodialysis Continue present treatment pending transfer to [facility]
[2017-12-15 08:25] LABS: BANDS 1 % (0-2); LYMPHOCYTE 11 % (20-40); MONOCYTE 6 % (0-10); NEUTROPHIL 82 % (50-75); TOTAL CELLS COUNTED 100
[2017-12-15 08:28] LABS: PLATELET ESTIMATE NORMAL (NORMAL)
[2017-12-15 08:31] LABS: HYPOCHROMIC SLIGHT; POLYCHROMIC SLIGHT
[2017-12-15] MEDS: Multivitamin Vitamin B Complex (Nephro-Vite) Tab PO SCH (09:21)
--- NOTE | 2017-12-15 11:20 | CP.PCM.PN ---
Subjective - Date & Time of Evaluation Date of Evaluation: 12/15/17 Time of Evaluation: 11:00 - Subjective Subjective: Ko Yousif, PGY-[address] Cortes, Cardiology Patient seen and evaluated at bedside. No acute events reported overnight. P atient currently getting HD bedside. Patient reports some paroxysmal shortness of breath, lower back pain. Denies palpitations and pain at cath insertion site. Objective - Vital Signs/Intake and Output Vital Signs (last 24 hours): Temp Pulse Resp BP Pulse Ox 98.2 F 78 14 132/80 100 12/15/17 09:45 12/15/17 11:00 12/15/17 11:00 12/15/17 11:00 12/15/17 11:00 Intake and Output: 12/15/17 12/15/17 06:59 18:59 Intake Total 241.2 250.1 Balance 241.2 250.1 - Medications Medications: Current Medications Acetaminophen (Tylenol 325mg Tab) 650 mg PO Q6 PRN PRN Reason: Fever >100.4 F or Pain Last Admin: 12/15/17 09:20 Dose: 650 mg Aspirin (Ecotrin) 81 mg PO DAILY [facility] Last Admin: 12/15/17 09:21 Dose: 81 mg Clopidogrel Bisulfate (Plavix) 75 mg PO DAILY [facility] Last Admin: 12/15/17 09:21 Dose: 75 mg Dextrose (Dextrose 50% Inj) 0 ml IV STAT PRN; Protocol PRN Reason: Hypoglycemia Protocol Dextrose (Glutose 15) 0 gm PO ONCE PRN; Protocol PRN Reason: Hypoglycemia Protocol Famotidine (Pepcid) 40 mg PO DAILY [facility] Last Admin: 12/15/17 09:21 Dose: 40 mg Dextrose (Dextrose 5% In Water 1000 Ml) 1,000 mls @ 0 mls/hr IV .Q0M PRN; Protocol PRN Reason: Hypoglycemia Protocol Nafcillin Sodium 2 gm/ Sodium (Chloride) 250 mls @ 250 mls/hr IVPB Q6H [facility]; Protocol Last Admin: 12/15/17 06:03 Dose: 250 mls/hr Vancomycin/Sodium Chloride (Vancomycin 1 Gm/Ns 200 Ml) 1 gm in 200 mls @ 133.333 mls/hr IVPB TTS [facility]; Protocol Stop: 12/19/17 10:01 Last Admin: 11/06/18 09:12 Dose: 133.333 mls/hr Heparin Sodium/Sodium Chloride (Heparin 90357 Units/250ml 1/2 Normal Saline) 25,000 units in 250 mls @ 12.138 mls/hr IV .[id number] PRN; Protocol PRN Reason: PROTOCOL Insulin Human Regular (Novolin R) 0 unit SC ACHS [facility]; Protocol Last Admin: 12/15/17 07:49 Dose: Not Given Metoprolol Tartrate (Lopressor) 25 mg PO BID [facility] Last Admin: 12/15/17 09:22 Dose: Not Given Rosuvastatin Calcium (Crestor) 5 mg PO HS [facility] Last Admin: 12/14/17 21:04 Dose: 5 mg Sevelamer Carbonate (Renvela) 1,600 mg PO TIDCC [facility] Last Admin: 12/15/17 09:21 Dose: 1,600 mg Vitamin B Complex/Vit C/Folic Acid (Nephro-Joesph) 1 tab PO 0800 [facility] Last Admin: 12/15/17 09:21 Dose: 1 tab - Labs Labs: 12/15/17 06:01 12/15/17 06:01 PT 14.1 SECONDS (9.7-12.2) H 12/14/17 07:20 INR 1.3 12/14/17 07:20 APTT 43 SECONDS (21-34) H D 12/15/17 06:01 - Additional Findings Additional findings: - Constitutional Appears: Non-toxic, No Acute Distress, Not diaphoretic - Head Exam Head Exam: ATRAUMATIC, NORMOCEPHALIC - Cardiovascular Exam Cardiovascular Exam: Improved HR and BP, REGULAR RHYTHM, +S1, +S2 - GI/Abdominal Exam GI & Abdominal Exam: Soft. absent: Distended, Firm, Guarding, Rigid, Tenderness Additional comments: R Femoral cath site without signs of hematoma, no TTP, dressing c/d/i Assessment and Plan - Assessment and Plan (Free Text) Assessment: Assessment: 47 y/o male patient with PMHx of PVD, DMII with neuropathy, ESRD (HD T,Th,Sat) who presents with NSTEMI, MSSA bacteremia sepsis to r/o endocarditis and s/p complete heart cath at [facility] 12/13. S/p HD earlier today. Plan: NSTEMI with elevated troponins, S/P KYLAH, R femoral cardiac cath - avoid hypotensive and bradycardic agents, currently HD MWF while hospitalized - s/p cardiac cath on 12/13- severe LAD calcified stenosis, moderate prox circumflex, moderate distal RCA, mild LV systolic dysfunction - TTE: EF 55-60% - KYLAH - no vegetations on prelim read - Metoprolol 25 mg PO BID - ASA 81 mg PO daily - Plavix 75 mg PO daily - Rosuvastatin 5 mg - Heparin drip - Staged surgical revascularization intervention, likely minimally invasive RAYMOND graft over sternotomy, after transfer and evaluation at [place] [facility] once bed opens up Patient seen, case discussed, plan approved by Dr. Cortes. Further recs per Dr. Cortes. Ko Yousif, PGY-1
--- NOTE | 2017-12-15 14:47 | CP.PCM.PN ---
Subjective - Date & Time of Evaluation Date of Evaluation: 12/15/17 Time of Evaluation: 14:30 - Subjective Subjective: Seen and examined by me. patient is lying on bed. no discomfort,no complain. Has poor venous access,s/p dialysis Objective - Vital Signs/Intake and Output Vital Signs (last 24 hours): Temp Pulse Resp BP Pulse Ox 98.2 F 79 18 137/68 99 12/15/17 09:45 12/15/17 12:45 12/15/17 12:45 12/15/17 12:45 12/15/17 12:45 Intake and Output: 12/15/17 12/15/17 06:59 18:59 Intake Total 241.2 250.1 Balance 241.2 250.1 - Medications Medications: Current Medications Acetaminophen (Tylenol 325mg Tab) 650 mg PO Q6 PRN PRN Reason: Fever >100.4 F or Pain Last Admin: 12/15/17 09:20 Dose: 650 mg Aspirin (Ecotrin) 81 mg PO DAILY [facility] Last Admin: 12/15/17 09:21 Dose: 81 mg Clopidogrel Bisulfate (Plavix) 75 mg PO DAILY [facility] Last Admin: 12/15/17 09:21 Dose: 75 mg Dextrose (Dextrose 50% Inj) 0 ml IV STAT PRN; Protocol PRN Reason: Hypoglycemia Protocol Dextrose (Glutose 15) 0 gm PO ONCE PRN; Protocol PRN Reason: Hypoglycemia Protocol Famotidine (Pepcid) 20 mg PO DAILY [facility] Dextrose (Dextrose 5% In Water 1000 Ml) 1,000 mls @ 0 mls/hr IV .Q0M PRN; Protocol PRN Reason: Hypoglycemia Protocol Nafcillin Sodium 2 gm/ Sodium (Chloride) 250 mls @ 250 mls/hr IVPB Q6H [facility]; Protocol Last Admin: 12/15/17 13:51 Dose: 250 mls/hr Vancomycin/Sodium Chloride (Vancomycin 1 Gm/Ns 200 Ml) 1 gm in 200 mls @ 133.333 mls/hr IVPB TTS [facility]; Protocol Stop: 12/19/17 10:01 Last Admin: 12/14/17 09:12 Dose: 133.333 mls/hr Heparin Sodium/Sodium Chloride (Heparin 01935 Units/250ml 1/2 Normal Saline) 25,000 units in 250 mls @ 16.184 mls/hr IV .[id number] PRN; Protocol PRN Reason: PROTOCOL Insulin Human Regular (Novolin R) 0 unit SC ACHS [facility]; Protocol Last Admin: 12/15/17 13:43 Dose: Not Given Metoprolol Tartrate (Lopressor) 25 mg PO BID [facility] Last Admin: 12/15/17 09:22 Dose: Not Given Rosuvastatin Calcium (Crestor) 5 mg PO HS [facility] Last Admin: 12/14/17 21:04 Dose: 5 mg Sevelamer Carbonate (Renvela) 1,600 mg PO TIDCC [facility] Last Admin: 12/15/17 13:51 Dose: 1,600 mg Vitamin B Complex/Vit C/Folic Acid (Nephro-Joesph) 1 tab PO 0800 [facility] Last Admin: 12/15/17 09:21 Dose: 1 tab - Labs Labs: 12/15/17 06:01 12/15/17 06:01 PT 14.1 SECONDS (9.7-12.2) H 12/14/17 07:20 INR 1.3 12/14/17 07:20 APTT 51 SECONDS (21-34) H D 12/15/17 14:26 - Constitutional Appears: Non-toxic - Head Exam Head Exam: NORMAL INSPECTION - Eye Exam Eye Exam: Normal appearance - ENT Exam ENT Exam: Mucous Membranes Moist - Neck Exam Neck Exam: Full ROM - Respiratory Exam Respiratory Exam: Rales, NORMAL BREATHING PATTERN - Cardiovascular Exam Cardiovascular Exam: REGULAR RHYTHM - GI/Abdominal Exam GI & Abdominal Exam: Soft, Normal Bowel Sounds - Extremities Exam Extremities Exam: Full ROM (left hand cellulitis,). absent: Normal Inspection (foot left has callus,blister,right TMA) - Back Exam Back Exam: NORMAL INSPECTION - Neurological Exam Neurological Exam: Awake, Oriented x3 - Psychiatric Exam Psychiatric exam: Normal Mood - Skin Skin Exam: Normal Color Assessment and Plan - Assessment and Plan (Free Text) Plan: 1. 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 patient awaiting for bed at [place] 2.Elevated troponins,s/p cath with severe LAD stenosis s/p cardiac cath on 12/13- severe LAD calcified stenosis, moderate prox circumflex, moderate distal RCA, mild LV systolic dysfunction - Staged surgical revascularization intervention, likely minimally invasive RAYMOND graft over bypass as per cardiology Pending transfer to [place] - Metoprolol 25 mg PO BID - ASA 81 mg PO daily - Plavix 75 mg PO daily - Rosuvastatin 5 mg - Heparin drip 3. Sepsis- MSSA bacteremia, KYLAH without vegetation - Tmax 102.5- afebrile since 12/11 - Blood Cx: MSSA - Nafcillin 2 g IV Q6H.poor venous access. Get a midline.has swollen hand due to line infiltrated - Vancomycin 1 g IV TTS after HD - ID consulted (Gabriela) 4. Back pain, chronic - Lumbar MRI: L5-S1 disc degeneration, cannot exclude osteomyelitis (rec IV contrast but ESRD) - Pelvis, hip CT: no acute fx - Hip/pelvis XR: L inferior ramus fx - Tylenol 650 mg PO Q6H PRN 5. 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
[2017-12-15] MEDS: Heparin25000 units/250ml 1/2NS 25,000 UNITS/250 ML BAG IV PRN ×2 (15:52→18:17)
--- NOTE | 2017-12-15 17:42 | RAD ---
HISTORY: S/P PICC LINE INSERTION COMPARISON: Chest x-ray performed 12/13/17 TECHNIQUE: Chest, one view. FINDINGS: Left-sided PICC extends to the expected location of the cavoatrial junction. LUNGS: Central vascular and pulmonary venous congestion. Please note that chest x-ray has limited sensitivity for the detection of pulmonary masses. PLEURA: No significant pleural effusion identified. No definite pneumothorax . CARDIOVASCULAR: Cardiomegaly. No significant atherosclerotic calcification present. OSSEOUS STRUCTURES: No acute osseous abnormality identified. VISUALIZED UPPER ABDOMEN: Unremarkable. OTHER FINDINGS: None. IMPRESSION: Cardiomegaly. Central vascular and pulmonary venous congestion. Left-sided PICC extends to the expected location of the cavoatrial junction.
--- NOTE | 2017-12-15 19:43 | CARD ---
APPROVED REPORT Date of service: 12/14/2017 EKG Measurement Heart [id number] <Conclusion> Normal sinus rhythm Low voltage QRS Incomplete left bundle branch block ST & T wave abnormality, consider anterior ischemia Prolonged QT Abnormal ECG
--- NOTE | 2017-12-15 22:12 | CP.PCM.PN ---
Subjective - Date & Time of Evaluation Date of Evaluation: 12/15/17 Time of Evaluation: 13:00 - Subjective Subjective: SEEN ON RENAL F/U IN ICU SEEN ON HD ALERT AND ORIENTED BUT APPEARS IN SAD MOOD TOLERATING HIS HD TODAY WELL ALL PREVIOUS EMR REVIEWED AWAITING TRANSFERRING TO [facility] Objective - Vital Signs/Intake and Output Vital Signs (last 24 hours): Temp Pulse Resp BP Pulse Ox 100.1 F H 79 23 97/48 L 100 12/15/17 20:00 12/15/17 21:12 12/15/17 21:12 12/15/17 21:12 12/15/17 21:12 Intake and Output: 12/15/17 12/16/17 18:59 06:59 Intake Total 1670.7 66 Output Total 3000 0 Balance -1329.3 66 - Medications Medications: Current Medications Acetaminophen (Tylenol 325mg Tab) 650 mg PO Q6 PRN PRN Reason: Fever >100.4 F or Pain Last Admin: 12/15/17 19:13 Dose: 650 mg Aspirin (Ecotrin) 81 mg PO DAILY [facility] Last Admin: 12/15/17 09:21 Dose: 81 mg Clopidogrel Bisulfate (Plavix) 75 mg PO DAILY [facility] Last Admin: 12/15/17 09:21 Dose: 75 mg Dextrose (Dextrose 50% Inj) 0 ml IV STAT PRN; Protocol PRN Reason: Hypoglycemia Protocol Dextrose (Glutose 15) 0 gm PO ONCE PRN; Protocol PRN Reason: Hypoglycemia Protocol Famotidine (Pepcid) 20 mg PO DAILY [facility] Dextrose (Dextrose 5% In Water 1000 Ml) 1,000 mls @ 0 mls/hr IV .Q0M PRN; Protocol PRN Reason: Hypoglycemia Protocol Nafcillin Sodium 2 gm/ Sodium (Chloride) 250 mls @ 250 mls/hr IVPB Q6H [facility]; Protocol Last Admin: 12/15/17 18:15 Dose: 250 mls/hr Vancomycin/Sodium Chloride (Vancomycin 1 Gm/Ns 200 Ml) 1 gm in 200 mls @ 133.333 mls/hr IVPB TTS [facility]; Protocol Stop: 12/19/17 10:01 Last Admin: 12/14/17 09:12 Dose: 133.333 mls/hr Heparin Sodium/Sodium Chloride (Heparin 99704 Units/250ml 1/2 Normal Saline) 25,000 units in 250 mls @ 16.184 mls/hr IV .[id number] PRN; Protocol PRN Reason: PROTOCOL Last Admin: 12/15/17 18:17 Dose: 16 units/kg/hr, 16.184 mls/hr Insulin Human Regular (Novolin R) 0 unit SC ACHS [facility]; Protocol Last Admin: 12/15/17 16:42 Dose: Not Given Metoprolol Tartrate (Lopressor) 25 mg PO BID [facility] Last Admin: 12/15/17 18:16 Dose: 25 mg Rosuvastatin Calcium (Crestor) 5 mg PO HS [facility] Last Admin: 12/14/17 21:04 Dose: 5 mg Sevelamer Carbonate (Renvela) 1,600 mg PO TIDCC [facility] Last Admin: 12/15/17 18:15 Dose: 1,600 mg Vitamin B Complex/Vit C/Folic Acid (Nephro-Joesph) 1 tab PO 0800 [facility] Last Admin: 12/15/17 09:21 Dose: 1 tab - Labs Labs: 12/15/17 06:01 12/15/17 06:01 PT 14.1 SECONDS (9.7-12.2) H 12/14/17 07:20 INR 1.3 12/14/17 07:20 APTT 51 SECONDS (21-34) H D 12/15/17 14:26 Assessment and Plan - Assessment and Plan (Free Text) Assessment: ESRD ON HD M W WHILE IN PT ANEMIA OF CKD .. ON EPO ELECTROLYTES ABNORMALITIES .. CORRECTED S/P CPDE BLUE .. S/P C SHOCK NSTEMI MMP P : C/O CURRENT CARE C/O PRESENT MANAGEMENT ON IVAB FOR PROBABLE OSTEO IN THE L [place] AWAITING FOR TRANSFERE TO [facility] FOR CABG
[2017-12-16 06:30] LABS: BASO # 0.1 K/uL (0.0-0.2); BASO % 0.6 % (0.0-2.0); EOS % 0.1 % (0.0-4.0); HEMOGLOBIN 9.5 g/dL (12.0-18.0); LYMPH # 0.7 K/uL (1.0-4.3); LYMPH % 6.7 % (20.0-40.0); MEAN CELL VOLUME 94.1 fL (80.0-94.0); MEAN PLATELET VOLUME 8.5 fL (7.2-11.7); MONO # 0.5 K/uL (0.0-0.8); MONO % 4.5 % (0.0-10.0); NEUT # 9.6 K/uL (1.8-7.0); NEUT % 88.1 % (50.0-75.0); NRBC % 0.1 % (0.0-2.0); PLATELET COUNT 168 K/uL (130-400); RBC 2.96 Mil/uL (4.40-5.90); WHITE BLOOD COUNT 10.9 K/uL (4.8-10.8)
[2017-12-16 06:38] LABS: ALB/GLOB RATIO 0.8 (1.0-2.1); ALBUMIN 3.1 g/dL (3.5-5.0); CALCIUM 8.1 mg/dl (8.6-10.4)
--- NOTE | 2017-12-16 07:48 | CP.CCUPN ---
<Carolina Edwards - Last Filed: 12/16/17 12:57> CCU Subjective - Physician Review Events Since Last Encounter (Free Text): 12/16/17 07:47 no over night events Subjective (Free Text): 12/16/17 07:46 Patient was seen and examined this morning. Only complains of chronic back pain. Denies chest pain. Tolerating HD well. Pending transfer to [place]. Critical Care Time Spent (in minutes): 35 CCU Objective - Vital Signs / Intake & Output Vital Signs (Last 4 hours): Vital Signs Temp Pulse Resp BP Pulse Ox 12/16/17 05:02 129/63 12/16/17 05:00 74 16 97 12/16/17 04:02 120/64 12/16/17 04:00 98.9 F 96 Intake and Output (Last 8hrs): Intake & Output 12/15/17 12/16/17 12/16/17 22:59 06:59 14:59 Intake Total 928.6 363.4 Output Total 0 Balance 928.6 363.4 Intake: IV 250 Intake, IV Amount 378.6 363.4 Left Antecubital 48 Left Distal Port PICC 250 250 Left PICC 80.6 113.4 Oral 300 0 Output: Urine 0 Urine, Voided 0 Other: # Voids Urine, Voided 0 0 # Bowel Movements 0 0 - Physical Exam Head: Positive for: Atraumatic, Normocephalic Pupils: Positive for: PERRL Extroacular Muscles: Positive for: EOMI Conjunctiva: Positive for: Normal Mouth: Positive for: Moist Mucous Membranes Neck: Positive for: Normal Range of Motion Respiratory/Chest: Positive for: Clear to Auscultation, Good Air Exchange. Negative for: Respiratory Distress, Accessory Muscle Use Cardiovascular: Positive for: Regular Rate and Rhythm, Normal S1, S2. Negative for: Murmurs Abdomen: Negative for: Tenderness, Distention, Peritoneal Signs Upper Extremity: Positive for: Other (LUE edema, ecchymosis on dorsal surface of hand, RUE AV fistula, 2 nodular elevations, nontender) Lower Extremity: Positive for: Other (LLE L 4th digit amputation, R TMA, b/l LE skin changes 2/2 PVD) Neurological: Positive for: GCS=15, CN II-XII Intact, Speech Normal Skin: Positive for: Warm, Dry, Normal Color. Negative for: Rashes - Medications Active Medications: Active Medications Generic Name Dose Route Start Last Admin Trade Name Freq PRN Reason Stop Dose Admin Acetaminophen 650 mg 12/13/17 17:42 12/15/17 19:13 Tylenol 325mg Tab PO 650 mg Q6 PRN Administration Fever >100.4 F or Pain Aspirin 81 mg 12/14/17 10:00 12/15/17 09:21 Ecotrin PO 81 mg DAILY LOYDA Administration Clopidogrel Bisulfate 75 mg 12/14/17 10:00 12/15/17 09:21 Plavix PO 75 mg DAILY LOYDA Administration Dextrose 0 ml 12/13/17 17:12 Dextrose 50% Inj IV STAT PRN Hypoglycemia Protocol Protocol Dextrose 0 gm 12/13/17 17:12 Glutose 15 PO ONCE PRN Hypoglycemia Protocol Protocol Famotidine 20 mg 12/16/17 10:00 Pepcid PO DAILY LOYDA Dextrose 1,000 mls @ 0 mls/hr 12/13/17 17:25 Dextrose 5% In Water 1000 Ml IV .Q0M PRN Hypoglycemia Protocol Protocol Per Protocol Nafcillin Sodium 2 gm/ Sodium 250 mls @ 250 mls/hr 12/13/17 18:30 12/16/17 06:17 Chloride IVPB 250 mls/hr Q6H LOYDA Administration Protocol Vancomycin/Sodium Chloride 1 gm in 200 mls @ 133.333 mls/hr 12/14/17 10:00 12/14/17 09:12 Vancomycin 1 Gm/Ns 200 Ml IVPB 12/19/17 10:01 133.333 mls/hr TTS LOYDA Administration Protocol Heparin Sodium/Sodium Chloride 25,000 units in 250 mls @ 16.184 mls/hr 12/15/17 15:47 12/15/17 18:17 Heparin 21118 Units/250ml 1/2 Normal Saline IV 16 units/kg/hr .[id number] PRN 16.184 mls/hr PROTOCOL Administration Protocol 16 UNITS/KG/HR Insulin Human Regular 0 unit 12/13/17 22:00 12/15/17 23:32 Novolin R SC Not Given ACHS LOYDA Protocol Metoprolol Tartrate 25 mg 12/13/17 18:00 12/15/17 18:16 Lopressor PO 25 mg BID LOYDA Administration Rosuvastatin Calcium 5 mg 12/14/17 22:00 12/15/17 22:45 Crestor PO 5 mg HS LOYDA Administration Sevelamer Carbonate 1,600 mg 12/14/17 08:00 12/15/17 18:15 Renvela PO 1,600 mg TIDCC LOYDA Administration Vitamin B Complex/Vit C/Folic Acid 1 tab 12/14/17 08:00 12/15/17 09:21 Nephro-Joesph PO 1 tab 0800 LOYDA Administration - Patient Studies Lab Studies: Microbiology Studies 12/14/17 03:37 MRSA Culture (Admit) - Final Naris MRSA NOT DETECTED Lab Studies 12/16/17 12/16/17 12/16/17 Range/Units 06:15 06:15 06:15 WBC 10.9 H (4.8-10.8) K/uL RBC 2.96 L (4.40-5.90) Mil/uL Hgb 9.5 L (12.0-18.0) g/dL Hct 27.9 L (35.0-51.0) % MCV 94.1 H (80.0-94.0) fL MCH 32.0 H (27.0-31.0) pg MCHC 34.0 (33.0-37.0) g/dL RDW 16.0 H (11.5-14.5) % Plt Count 168 (130-400) K/uL MPV 8.5 (7.2-11.7) fL Neut % (Auto) 88.1 H (50.0-75.0) % Lymph % (Auto) 6.7 L (20.0-40.0) % [place] % (Auto) 4.5 (0.0-10.0) % Eos % (Auto) 0.1 (0.0-4.0) % Baso % (Auto) 0.6 (0.0-2.0) % Neut # (Auto) 9.6 H (1.8-7.0) K/uL Lymph # (Auto) 0.7 L (1.0-4.3) K/uL [place] # (Auto) 0.5 (0.0-0.8) K/uL Eos # (Auto) 0.0 (0.0-0.7) K/uL Baso # (Auto) 0.1 (0.0-0.2) K/uL Neutrophils % (Manual) (50-75) % Band Neutrophils % (0-2) % Lymphocytes % (Manual) (20-40) % Monocytes % (Manual) (0-10) % Platelet Estimate (NORMAL) Polychromasia Hypochromasia (manual) APTT 36 H D (21-34) SECONDS Sodium 137 (132-148) mmol/L Potassium 4.4 (3.6-5.2) mmol/L Chloride 98 (98-107) mmol/L Carbon Dioxide 23 (22-30) mmol/L Anion Gap 20 (10-20) BUN 37 H (9-20) mg/dL Creatinine 6.6 H (0.8-1.5) mg/dL Est GFR ( Amer) 11 Est GFR (Non-Af Amer) 9 POC Glucose (mg/dL) (65-110) mg/dL Random Glucose 114 H (75-110) mg/dL Calcium 8.1 L (8.6-10.4) mg/dl Phosphorus 6.8 H (2.5-4.5) mg/dL Magnesium 2.5 H (1.6-2.3) mg/dL Total Bilirubin 7.3 H (0.2-1.3) mg/dL AST 26 (17-59) U/L ALT 13 L (21-72) U/L Alkaline Phosphatase 246 H (38-126) U/L Total Protein 7.1 (6.3-8.3) g/dL Albumin 3.1 L (3.5-5.0) g/dL Globulin 4.0 H (2.2-3.9) gm/dL Albumin/Globulin Ratio 0.8 L (1.0-2.1) 12/15/17 12/15/17 12/15/17 Range/Units 23:31 21:25 16:28 WBC (4.8-10.8) K/uL RBC (4.40-5.90) Mil/uL Hgb (12.0-18.0) g/dL Hct (35.0-51.0) % MCV (80.0-94.0) fL MCH (27.0-31.0) pg MCHC (33.0-37.0) g/dL RDW (11.5-14.5) % Plt Count (130-400) K/uL MPV (7.2-11.7) fL Neut % (Auto) (50.0-75.0) % Lymph % (Auto) (20.0-40.0) % [place] % (Auto) (0.0-10.0) % Eos % (Auto) (0.0-4.0) % Baso % (Auto) (0.0-2.0) % Neut # (Auto) (1.8-7.0) K/uL Lymph # (Auto) (1.0-4.3) K/uL [place] # (Auto) (0.0-0.8) K/uL Eos # (Auto) (0.0-0.7) K/uL Baso # (Auto) (0.0-0.2) K/uL Neutrophils % (Manual) (50-75) % Band Neutrophils % (0-2) % Lymphocytes % (Manual) (20-40) % Monocytes % (Manual) (0-10) % Platelet Estimate (NORMAL) Polychromasia Hypochromasia (manual) APTT 59 H D (21-34) SECONDS Sodium (132-148) mmol/L Potassium (3.6-5.2) mmol/L Chloride (98-107) mmol/L Carbon Dioxide (22-30) mmol/L Anion Gap (10-20) BUN (9-20) mg/dL Creatinine (0.8-1.5) mg/dL Est GFR ( Amer) Est GFR (Non-Af Amer) POC Glucose (mg/dL) 131 H 104 (65-110) mg/dL Random Glucose (75-110) mg/dL Calcium (8.6-10.4) mg/dl Phosphorus (2.5-4.5) mg/dL Magnesium (1.6-2.3) mg/dL Total Bilirubin (0.2-1.3) mg/dL AST (17-59) U/L ALT (21-72) U/L Alkaline Phosphatase (38-126) U/L Total Protein (6.3-8.3) g/dL Albumin (3.5-5.0) g/dL Globulin (2.2-3.9) gm/dL Albumin/Globulin Ratio (1.0-2.1) 12/15/17 12/15/1712/15/18 Range/Units 14:26 11:20 06:01 WBC (4.8-10.8) K/uL RBC (4.40-5.90) Mil/uL Hgb (12.0-18.0) g/dL Hct (35.0-51.0) % MCV (80.0-94.0) fL MCH (27.0-31.0) pg MCHC (33.0-37.0) g/dL RDW (11.5-14.5) % Plt Count (130-400) K/uL MPV (7.2-11.7) fL Neut % (Auto) (50.0-75.0) % Lymph % (Auto) (20.0-40.0) % [place] % (Auto) (0.0-10.0) % Eos % (Auto) (0.0-4.0) % Baso % (Auto) (0.0-2.0) % Neut # (Auto) (1.8-7.0) K/uL Lymph # (Auto) (1.0-4.3) K/uL [place] # (Auto) (0.0-0.8) K/uL Eos # (Auto) (0.0-0.7) K/uL Baso # (Auto) (0.0-0.2) K/uL Neutrophils % (Manual) 82 H (50-75) % Band Neutrophils % 1 (0-2) % Lymphocytes % (Manual) 11 L (20-40) % Monocytes % (Manual) 6 (0-10) % Platelet Estimate Normal (NORMAL) Polychromasia Slight Hypochromasia (manual) Slight APTT 51 H D (21-34) SECONDS Sodium (132-148) mmol/L Potassium (3.6-5.2) mmol/L Chloride (98-107) mmol/L Carbon Dioxide (22-30) mmol/L Anion Gap (10-20) BUN (9-20) mg/dL Creatinine (0.8-1.5) mg/dL Est GFR ( Amer) Est GFR (Non-Af Amer) POC Glucose (mg/dL) 116 H (65-110) mg/dL Random Glucose (75-110) mg/dL Calcium (8.6-10.4) mg/dl Phosphorus (2.5-4.5) mg/dL Magnesium (1.6-2.3) mg/dL Total Bilirubin (0.2-1.3) mg/dL AST (17-59) U/L ALT (21-72) U/L Alkaline Phosphatase (38-126) U/L Total Protein (6.3-8.3) g/dL Albumin (3.5-5.0) g/dL Globulin (2.2-3.9) gm/dL Albumin/Globulin Ratio (1.0-2.1) Laboratory Results - last 24 hr 12/15/17 12/15/17 12/15/17 06:01 11:20 14:26 WBC RBC Hgb Hct MCV MCH MCHC RDW Plt Count MPV Neut % (Auto) Lymph % (Auto) [place] % (Auto) Eos % (Auto) Baso % (Auto) Neut # (Auto) Lymph # (Auto) [place] # (Auto) Eos # (Auto) Baso # (Auto) Neutrophils % (Manual) 82 H Band Neutrophils % 1 Lymphocytes % (Manual) 11 L Monocytes % (Manual) 6 Platelet Estimate Normal Polychromasia Slight Hypochromasia (manual) Slight APTT 51 H D Sodium Potassium Chloride Carbon Dioxide Anion Gap BUN Creatinine Est GFR ( Amer) Est GFR (Non-Af Amer) POC Glucose (mg/dL) 116 H Random Glucose Calcium Phosphorus Magnesium Total Bilirubin AST ALT Alkaline Phosphatase Total Protein Albumin Globulin Albumin/Globulin Ratio 12/15/17 12/15/17 12/15/17 16:28 21:25 23:31 WBC RBC Hgb Hct MCV MCH MCHC RDW Plt Count MPV Neut % (Auto) Lymph % (Auto) [place] % (Auto) Eos % (Auto) Baso % (Auto) Neut # (Auto) Lymph # (Auto) [place] # (Auto) Eos # (Auto) Baso # (Auto) Neutrophils % (Manual) Band Neutrophils % Lymphocytes % (Manual) Monocytes % (Manual) Platelet Estimate Polychromasia Hypochromasia (manual) APTT 59 H D Sodium Potassium Chloride Carbon Dioxide Anion Gap BUN Creatinine Est GFR ( Amer) Est GFR (Non-Af Amer) POC Glucose (mg/dL) 104 131 H Random Glucose Calcium Phosphorus Magnesium Total Bilirubin AST ALT Alkaline Phosphatase Total Protein Albumin Globulin Albumin/Globulin Ratio 12/16/17 12/16/17 12/16/17 06:15 06:15 06:15 WBC 10.9 H RBC 2.96 L Hgb 9.5 L Hct 27.9 L MCV 94.1 H MCH 32.0 H MCHC 34.0 RDW 16.0 H Plt Count 168 MPV 8.5 Neut % (Auto) 88.1 H Lymph % (Auto) 6.7 L [place] % (Auto) 4.5 Eos % (Auto) 0.1 Baso % (Auto) 0.6 Neut # (Auto) 9.6 H Lymph # (Auto) 0.7 L [place] # (Auto) 0.5 Eos # (Auto) 0.0 Baso # (Auto) 0.1 Neutrophils % (Manual) Band Neutrophils % Lymphocytes % (Manual) Monocytes % (Manual) Platelet Estimate Polychromasia Hypochromasia (manual) APTT 36 H D Sodium 137 Potassium 4.4 Chloride 98 Carbon Dioxide 23 Anion Gap 20 BUN 37 H Creatinine 6.6 H Est GFR ( Amer) 11 Est GFR (Non-Af Amer) 9 POC Glucose (mg/dL) Random Glucose 114 H Calcium 8.1 L Phosphorus 6.8 H Magnesium 2.5 H Total Bilirubin 7.3 H AST 26 ALT 13 L Alkaline Phosphatase 246 H Total Protein 7.1 Albumin 3.1 L Globulin 4.0 H Albumin/Globulin Ratio 0.8 L Fingerstick Blood Sugar Results: 131 Review of Systems - Review of Systems All systems: reviewed and no additional remarkable complaints except - Constitutional Constitutional: absent: Fever, Chills, Sweats - EENT Eyes: UNREMARKABLE Ears: UNREMARKABLE Nose/Mouth/Throat: UNREMARKABLE - Cardiovascular Cardiovascular: UNREMARKABLE. absent: Chest Pain, Diaphoresis, Dyspnea - Respiratory Respiratory: UNREMARKABLE. absent: Cough, Dyspnea - Gastrointestinal Gastrointestinal: UNREMARKABLE. absent: Abdominal Pain, Change in Bowel Habits, Nausea, Vomiting - Genitourinary Genitourinary: Dysuria, UNREMARKABLE - Musculoskeletal Musculoskeletal: As Par HPI, Back Pain - Integumentary Integumentary: UNREMARKABLE - Neurological Neurological: UNREMARKABLE - Psychiatric Psychiatric: UNREMARKABLE - Endocrine Endocrine: UNREMARKABLE - Hematologic/Lymphatic Hematologic: UNREMARKABLE Critical Care Progress Note - Extremities/Vascular Does the Patient have a Central Venous Catheter?: No Does the Patient need a Central Venous Catheter?: No Does the Patient have a Kolb Catheter?: No Does the Patient need a Kolb Catheter?: No - Prophylaxis GI Prophylaxis GI: Pepsid - Prophylaxis DVT Prophylaxis DVT: Not Indicated (heparin drip) - Nutrition Nutrition: Nutrition Category Date Time Status Heart Healthy Diet [DIET] Diets 12/13/17 Dinner Active Assessment/Plan - Assessment and Plan (Free Text) Assessment: Patient is a 47 yo male with history ESRD on HD, T2DM, PVD, and HTN who was admitted to [facility] on 12/06/17 with generalized body aches, fever, and cough. He was found to be septic with positive blood cultures for MSSA. He was transferred to [facility] on 12/13 for cardiac cath due to elevated troponins. Following the completion of the cath, the patient went to have a BM and became unresponsive, pulseless with Vtach. Compressions were started and patient achieved ROSC after one shock. He is now on heparin drip. Plan is for patient to be transferred to [place] for heart surgery. He is stable for transfer to telemetry. Plan: Neuro: - No acute issues - CT head: no acute findings - Monitor mental status- post code blue CV: - s/p LIME PULLER/code blue- Vtach - Elevated troponins improving (0.139->0.873->.470) - No EKG changes - Heparin drip- monitor PTT - Cardiac cath 12/13- severely elevated filling pressure, mild LV dysfunction (EF 45%), LAD prox 70-80% and mid 95% stenosis, LCX 60%, RCA 55% - TTE: EF 55-60% - KYLAH: no vegetations - Metoprolol 25 mg PO BID - ASA 81 mg PO daily - Plavix 75 mg PO daily - Monitor vitals- hypotension improved, no pressors - Cardiology consulted (Sebastian)- transfer to [place] for surgery, no need for life vest at this time Pulm: - CXR: cardiomegaly, central vascular prominence, mild pulm venous congestions, patchy infiltrate or atelectasis at R hilar/infrahilar region - Maintain spO2>92%- supplemental O2 PRN - ABG 12/13: pH 7.26, pCO2 42, pO2 27, lactate 2.8 GI: - Heart healthy diet : - I's & O's - CMP daily - Replete electrolytes PRN - HD on TTS- presently on MWF while hospitalized - Sevelamer 1600 mg PO TID - Nephrovite daily - Nephrology consulted (Adrian) Endo: - Maintain euglycemia - Hypoglycemic protocol - Accuchecks with ISS ACHS Heme: - Anemia of chronic disease- Hgb (9.5) at baseline (10-19) - Monitor H&H ID: Sepsis (MSSA bacteremia)- r/o endocarditis - Tmax 102.5- afebrile since 12/11 - Tylenol 650 mg PO Q6H PRN - Leukocytosis improving (10.9) - ESR 114, CRP 159.2 - Procal 12.49 - Lactate 2.8 - Blood Cx: MSSA - Repeat blood Cx no growth - Nafcillin 2 g IV Q6H - Vancomycin 1 g IV MWF - ID consulted (Gabriela) Integumentary: - Wound care consulted - Podiatry consulted (Ricardo) MSK: - Lumbar MRI: L5-S1 disc degeneration, cannot exclude osteomyelitis (rec IV contrast but ESRD) - Pelvis, hip CT: no acute fx - Hip/pelvis XR: L inferior ramus fx PPx: VTE: heparin drip GI: Pepcid 20 mg PO daily Code status: full code Case discussed with attending, Dr. Shannon Johnson. PGY-1 Carolina Edwards D.O. <Alicia Johnson - Last Filed: 12/17/17 15:03> CCU Objective - Vital Signs / Intake & Output Vital Signs (Last 4 hours): Vital Signs Temp Pulse Pulse Resp BP BP Pulse Ox 12/17/17 14:10 81 19 140/59 L 100 12/17/17 14:05 140/59 L 12/17/17 13:50 136/61 12/17/17 13:35 111/59 L 12/17/17 13:20 102/60 12/17/17 13:05 98 F 77 18 95/50 L 100 12/17/17 13:00 98 F 87 14 109/60 99 12/17/17 12:03 87 18 121/67 94 L 12/17/17 12:00 98.0 F 100 Intake and Output (Last 8hrs): Intake & Output 12/17/17 12/17/17 12/17/17 06:59 14:59 22:59 Intake Total 741.6 732.6 Balance 741.6 732.6 Weight 241 lb 13.553 oz Intake: IV 230 Intake, IV Amount 621.6 127.6 Left Distal Port PICC 500 Left PICC 121.6 127.6 Oral 120 375 Other: # Voids Urine, Voided 0 0 # Bowel Movements 0 0 - Medications Active Medications: Active Medications Generic Name Dose Route Start Last Admin Trade Name Freq PRN Reason Stop Dose Admin Acetaminophen 650 mg 12/13/17 17:42 12/15/17 19:13 Tylenol 325mg Tab PO 650 mg Q6 PRN Administration Fever >100.4 F or Pain Aspirin 81 mg 12/14/17 10:00 12/17/17 09:24 Ecotrin PO 81 mg DAILY LOYDA Administration Clopidogrel Bisulfate 75 mg 12/14/17 10:00 12/17/17 09:24 Plavix PO 75 mg DAILY LOYDA Administration Dextrose 0 ml 12/13/17 17:12 Dextrose 50% Inj IV STAT PRN Hypoglycemia Protocol Protocol Dextrose 0 gm 12/13/17 17:12 Glutose 15 PO ONCE PRN Hypoglycemia Protocol Protocol Famotidine 20 mg 12/16/17 10:00 12/17/17 09:24 Pepcid PO 20 mg DAILY LOYDA Administration Dextrose 1,000 mls @ 0 mls/hr 12/13/17 17:25 Dextrose 5% In Water 1000 Ml IV .Q0M PRN Hypoglycemia Protocol Protocol Per Protocol Nafcillin Sodium 2 gm/ Sodium 250 mls @ 250 mls/hr 12/13/17 18:30 12/17/17 11:48 Chloride IVPB 250 mls/hr Q6H LOYDA Administration Protocol Heparin Sodium/Sodium Chloride 25,000 units in 250 mls @ 17.196 mls/hr 12/17/17 11:00 12/17/17 10:55 Heparin 95681 Units/250ml 1/2 Normal Saline IV 17 units/kg/hr .[id number] PRN 17.196 mls/hr PROTOCOL Administration Protocol 17 UNITS/KG/HR Insulin Human Regular 0 unit 12/13/17 22:00 12/17/17 11:52 Novolin R SC Not Given ACHS LOYDA Protocol Metoprolol Tartrate 25 mg 12/13/17 18:00 12/17/17 09:24 Lopressor PO 25 mg BID LOYDA Administration Rosuvastatin Calcium 5 mg 12/14/17 22:00 12/16/17 22:34 Crestor PO 5 mg HS LOYDA Administration Sevelamer Carbonate 1,600 mg 12/14/17 08:00 12/17/17 12:48 Renvela PO Not Given TIDCC LOYDA Vitamin B Complex/Vit C/Folic Acid 1 tab 12/14/17 08:00 12/17/17 08:22 Nephro-Joesph PO 1 tab 0800 LOYDA Administration - Patient Studies Lab Studies: Lab Studies 12/17/17 12/17/17 12/17/17 Range/Units 11:27 09:18 07:14 WBC (4.8-10.8) K/uL RBC (4.40-5.90) Mil/uL Hgb (12.0-18.0) g/dL Hct (35.0-51.0) % MCV (80.0-94.0) fL MCH (27.0-31.0) pg MCHC (33.0-37.0) g/dL RDW (11.5-14.5) % Plt Count (130-400) K/uL MPV (7.2-11.7) fL Neut % (Auto) (50.0-75.0) % Lymph % (Auto) (20.0-40.0) % [place] % (Auto) (0.0-10.0) % Eos % (Auto) (0.0-4.0) % Baso % (Auto) (0.0-2.0) % Neut # (Auto) (1.8-7.0) K/uL Lymph # (Auto) (1.0-4.3) K/uL [place] # (Auto) (0.0-0.8) K/uL Eos # (Auto) (0.0-0.7) K/uL Baso # (Auto) (0.0-0.2) K/uL Neutrophils % (Manual) (50-75) % Lymphocytes % (Manual) (20-40) % Monocytes % (Manual) (0-10) % Platelet Estimate (NORMAL) Anisocytosis (manual) APTT 55 H D (21-34) SECONDS Sodium (132-148) mmol/L Potassium (3.6-5.2) mmol/L Chloride (98-107) mmol/L Carbon Dioxide (22-30) mmol/L Anion Gap (10-20) BUN (9-20) mg/dL Creatinine (0.8-1.5) mg/dL Est GFR ( Amer) Est GFR (Non-Af Amer) POC Glucose (mg/dL) 112 H 102 (65-110) mg/dL Random Glucose (75-110) mg/dL Calcium (8.6-10.4) mg/dl Phosphorus (2.5-4.5) mg/dL Magnesium (1.6-2.3) mg/dL Total Bilirubin (0.2-1.3) mg/dL AST (17-59) U/L ALT (21-72) U/L Alkaline Phosphatase (38-126) U/L Total Protein (6.3-8.3) g/dL Albumin (3.5-5.0) g/dL Globulin (2.2-3.9) gm/dL Albumin/Globulin Ratio (1.0-2.1) 12/17/17 12/17/17 12/17/17 Range/Units 06:05 06:05 01:41 WBC 9.6 (4.8-10.8) K/uL RBC 2.93 L (4.40-5.90) Mil/uL Hgb 9.2 L (12.0-18.0) g/dL Hct 27.9 L (35.0-51.0) % MCV 95.1 H (80.0-94.0) fL MCH 31.4 H (27.0-31.0) pg MCHC 33.0 (33.0-37.0) g/dL RDW 16.1 H (11.5-14.5) % Plt Count 150 (130-400) K/uL MPV 8.2 (7.2-11.7) fL Neut % (Auto) 84.4 H (50.0-75.0) % Lymph % (Auto) 9.2 L (20.0-40.0) % [place] % (Auto) 5.7 (0.0-10.0) % Eos % (Auto) 0.3 (0.0-4.0) % Baso % (Auto) 0.4 (0.0-2.0) % Neut # (Auto) 8.1 H (1.8-7.0) K/uL Lymph # (Auto) 0.9 L (1.0-4.3) K/uL [place] # (Auto) 0.5 (0.0-0.8) K/uL Eos # (Auto) 0.0 (0.0-0.7) K/uL Baso # (Auto) 0.0 (0.0-0.2) K/uL Neutrophils % (Manual) 87 H (50-75) % Lymphocytes % (Manual) 10 L (20-40) % Monocytes % (Manual) 3 (0-10) % Platelet Estimate Normal (NORMAL) Anisocytosis (manual) Slight APTT 81 H D (21-34) SECONDS Sodium 136 (132-148) mmol/L Potassium 5.0 (3.6-5.2) mmol/L Chloride 99 (98-107) mmol/L Carbon Dioxide 21 L (22-30) mmol/L Anion Gap 21 H (10-20) BUN 46 H (9-20) mg/dL Creatinine 8.0 H* D (0.8-1.5) mg/dL Est GFR ( Amer) 9 Est GFR (Non-Af Amer) 7 POC Glucose (mg/dL) (65-110) mg/dL Random Glucose 114 H (75-110) mg/dL Calcium 8.3 L (8.6-10.4) mg/dl Phosphorus 8.6 H (2.5-4.5) mg/dL Magnesium 2.6 H (1.6-2.3) mg/dL Total Bilirubin 6.3 H (0.2-1.3) mg/dL AST 23 (17-59) U/L ALT 10 L D (21-72) U/L Alkaline Phosphatase 222 H (38-126) U/L Total Protein 7.0 (6.3-8.3) g/dL Albumin 3.2 L (3.5-5.0) g/dL Globulin 3.9 (2.2-3.9) gm/dL Albumin/Globulin Ratio 0.8 L (1.0-2.1) 12/16/17 12/16/17 12/16/17 Range/Units 21:21 16:26 15:59 WBC (4.8-10.8) K/uL RBC (4.40-5.90) Mil/uL Hgb (12.0-18.0) g/dL Hct (35.0-51.0) % MCV (80.0-94.0) fL MCH (27.0-31.0) pg MCHC (33.0-37.0) g/dL RDW (11.5-14.5) % Plt Count (130-400) K/uL MPV (7.2-11.7) fL Neut % (Auto) (50.0-75.0) % Lymph % (Auto) (20.0-40.0) % [place] % (Auto) (0.0-10.0) % Eos % (Auto) (0.0-4.0) % Baso % (Auto) (0.0-2.0) % Neut # (Auto) (1.8-7.0) K/uL Lymph # (Auto) (1.0-4.3) K/uL [place] # (Auto) (0.0-0.8) K/uL Eos # (Auto) (0.0-0.7) K/uL Baso # (Auto) (0.0-0.2) K/uL Neutrophils % (Manual) (50-75) % Lymphocytes % (Manual) (20-40) % Monocytes % (Manual) (0-10) % Platelet Estimate (NORMAL) Anisocytosis (manual) APTT 126 H* D (21-34) SECONDS Sodium (132-148) mmol/L Potassium (3.6-5.2) mmol/L Chloride (98-107) mmol/L Carbon Dioxide (22-30) mmol/L Anion Gap (10-20) BUN (9-20) mg/dL Creatinine (0.8-1.5) mg/dL Est GFR ( Amer) Est GFR (Non-Af Amer) POC Glucose (mg/dL) 138 H 144 H (65-110) mg/dL Random Glucose (75-110) mg/dL Calcium (8.6-10.4) mg/dl Phosphorus (2.5-4.5) mg/dL Magnesium (1.6-2.3) mg/dL Total Bilirubin (0.2-1.3) mg/dL AST (17-59) U/L ALT (21-72) U/L Alkaline Phosphatase (38-126) U/L Total Protein (6.3-8.3) g/dL Albumin (3.5-5.0) g/dL Globulin (2.2-3.9) gm/dL Albumin/Globulin Ratio (1.0-2.1) 12/16/17 12/16/17 Range/Units 11:10 07:21 WBC (4.8-10.8) K/uL RBC (4.40-5.90) Mil/uL Hgb (12.0-18.0) g/dL Hct (35.0-51.0) % MCV (80.0-94.0) fL MCH (27.0-31.0) pg MCHC (33.0-37.0) g/dL RDW (11.5-14.5) % Plt Count (130-400) K/uL MPV (7.2-11.7) fL Neut % (Auto) (50.0-75.0) % Lymph % (Auto) (20.0-40.0) % [place] % (Auto) (0.0-10.0) % Eos % (Auto) (0.0-4.0) % Baso % (Auto) (0.0-2.0) % Neut # (Auto) (1.8-7.0) K/uL Lymph # (Auto) (1.0-4.3) K/uL [place] # (Auto) (0.0-0.8) K/uL Eos # (Auto) (0.0-0.7) K/uL Baso # (Auto) (0.0-0.2) K/uL Neutrophils % (Manual) (50-75) % Lymphocytes % (Manual) (20-40) % Monocytes % (Manual) (0-10) % Platelet Estimate (NORMAL) Anisocytosis (manual) APTT (21-34) SECONDS Sodium (132-148) mmol/L Potassium (3.6-5.2) mmol/L Chloride (98-107) mmol/L Carbon Dioxide (22-30) mmol/L Anion Gap (10-20) BUN (9-20) mg/dL Creatinine (0.8-1.5) mg/dL Est GFR ( Amer) Est GFR (Non-Af Amer) POC Glucose (mg/dL) 146 H 106 (65-110) mg/dL Random Glucose (75-110) mg/dL Calcium (8.6-10.4) mg/dl Phosphorus (2.5-4.5) mg/dL Magnesium (1.6-2.3) mg/dL Total Bilirubin (0.2-1.3) mg/dL AST (17-59) U/L ALT (21-72) U/L Alkaline Phosphatase (38-126) U/L Total Protein (6.3-8.3) g/dL Albumin (3.5-5.0) g/dL Globulin (2.2-3.9) gm/dL Albumin/Globulin Ratio (1.0-2.1) Laboratory Results - last 24 hr 12/16/17 12/16/17 12/16/17 07:21 11:10 15:59 WBC RBC Hgb Hct MCV MCH MCHC RDW Plt Count MPV Neut % (Auto) Lymph % (Auto) [place] % (Auto) Eos % (Auto) Baso % (Auto) Neut # (Auto) Lymph # (Auto) [place] # (Auto) Eos # (Auto) Baso # (Auto) Neutrophils % (Manual) Lymphocytes % (Manual) Monocytes % (Manual) Platelet Estimate Anisocytosis (manual) APTT 126 H* D Sodium Potassium Chloride Carbon Dioxide Anion Gap BUN Creatinine Est GFR ( Amer) Est GFR (Non-Af Amer) POC Glucose (mg/dL) 106 146 H Random Glucose Calcium Phosphorus Magnesium Total Bilirubin AST ALT Alkaline Phosphatase Total Protein Albumin Globulin Albumin/Globulin Ratio 12/16/17 12/16/17 12/17/17 16:26 21:21 01:41 WBC RBC Hgb Hct MCV MCH MCHC RDW Plt Count MPV Neut % (Auto) Lymph % (Auto) [place] % (Auto) Eos % (Auto) Baso % (Auto) Neut # (Auto) Lymph # (Auto) [place] # (Auto) Eos # (Auto) Baso # (Auto) Neutrophils % (Manual) Lymphocytes % (Manual) Monocytes % (Manual) Platelet Estimate Anisocytosis (manual) APTT 81 H D Sodium Potassium Chloride Carbon Dioxide Anion Gap BUN Creatinine Est GFR ( Amer) Est GFR (Non-Af Amer) POC Glucose (mg/dL) 144 H 138 H Random Glucose Calcium Phosphorus Magnesium Total Bilirubin AST ALT Alkaline Phosphatase Total Protein Albumin Globulin Albumin/Globulin Ratio 12/17/17 12/17/17 12/17/17 06:05 06:05 07:14 WBC 9.6 RBC 2.93 L Hgb 9.2 L Hct 27.9 L MCV 95.1 H MCH 31.4 H MCHC 33.0 RDW 16.1 H Plt Count 150 MPV 8.2 Neut % (Auto) 84.4 H Lymph % (Auto) 9.2 L [place] % (Auto) 5.7 Eos % (Auto) 0.3 Baso % (Auto) 0.4 Neut # (Auto) 8.1 H Lymph # (Auto) 0.9 L [place] # (Auto) 0.5 Eos # (Auto) 0.0 Baso # (Auto) 0.0 Neutrophils % (Manual) 87 H Lymphocytes % (Manual) 10 L Monocytes % (Manual) 3 Platelet Estimate Normal Anisocytosis (manual) Slight APTT Sodium 136 Potassium 5.0 Chloride 99 Carbon Dioxide 21 L Anion Gap 21 H BUN 46 H Creatinine 8.0 H* D Est GFR ( Amer) 9 Est GFR (Non-Af Amer) 7 POC Glucose (mg/dL) 102 Random Glucose 114 H Calcium 8.3 L Phosphorus 8.6 H Magnesium 2.6 H Total Bilirubin 6.3 H AST 23 ALT 10 L D Alkaline Phosphatase 222 H Total Protein 7.0 Albumin 3.2 L Globulin 3.9 Albumin/Globulin Ratio 0.8 L 12/17/17 12/17/17 09:18 11:27 WBC RBC Hgb Hct MCV MCH MCHC RDW Plt Count MPV Neut % (Auto) Lymph % (Auto) [place] % (Auto) Eos % (Auto) Baso % (Auto) Neut # (Auto) Lymph # (Auto) [place] # (Auto) Eos # (Auto) Baso # (Auto) Neutrophils % (Manual) Lymphocytes % (Manual) Monocytes % (Manual) Platelet Estimate Anisocytosis (manual) APTT 55 H D Sodium Potassium Chloride Carbon Dioxide Anion Gap BUN Creatinine Est GFR ( Amer) Est GFR (Non-Af Amer) POC Glucose (mg/dL) 112 H Random Glucose Calcium Phosphorus Magnesium Total Bilirubin AST ALT Alkaline Phosphatase Total Protein Albumin Globulin Albumin/Globulin Ratio Critical Care Progress Note - Nutrition Nutrition: Nutrition Category Date Time Status Heart Healthy Diet [DIET] Diets 11/05/18 Dinner Active Assessment/Plan - Assessment and Plan (Free Text) Plan: Patient seen and examined at bedside with above resident. Patient remains hemodynamically stable -continue treatment as per cardiology, DAPT -Patient has ESRD with underlying PVD -Above resident documents my clinical management and physical exam findings - Date & Time Date: 12/16/17 Time: 15:03
[2017-12-16] MEDS: Multivitamin Vitamin B Complex (Nephro-Vite) Tab PO SCH (07:52)
[2017-12-16] MEDS: (Novolin R) Insulin Human Regular 100 units/ml vial SC SCH ×4 (07:53→22:35)
--- NOTE | 2017-12-16 08:26 | CP.PCM.PN ---
Subjective - Date & Time of Evaluation Date of Evaluation: 12/16/17 Time of Evaluation: 07:50 - Subjective Subjective: Ko Yousif, PGY-[address] Cortes Patient seen and evaluated at bedside. No acute events reported overnight. Tolerated HD well yesterday. Currently on Heparin drip. Patient reports unchanged lower back pain. Pending transfer to [place]. Objective - Vital Signs/Intake and Output Vital Signs (last 24 hours): Temp Pulse Resp BP Pulse Ox 98.9 F 76 15 107/65 98 12/16/17 04:00 12/16/17 06:02 12/16/17 06:02 12/16/17 06:02 12/16/17 06:02 Intake and Output: 12/16/17 12/16/17 06:59 18:59 Intake Total 594.2 16.2 Output Total 0 Balance 594.2 16.2 - Medications Medications: Current Medications Acetaminophen (Tylenol 325mg Tab) 650 mg PO Q6 PRN PRN Reason: Fever >100.4 F or Pain Last Admin: 12/15/17 19:13 Dose: 650 mg Aspirin (Ecotrin) 81 mg PO DAILY [facility] Last Admin: 12/15/17 09:21 Dose: 81 mg Clopidogrel Bisulfate (Plavix) 75 mg PO DAILY [facility] Last Admin: 12/15/17 09:21 Dose: 75 mg Dextrose (Dextrose 50% Inj) 0 ml IV STAT PRN; Protocol PRN Reason: Hypoglycemia Protocol Dextrose (Glutose 15) 0 gm PO ONCE PRN; Protocol PRN Reason: Hypoglycemia Protocol Famotidine (Pepcid) 20 mg PO DAILY [facility] Dextrose (Dextrose 5% In Water 1000 Ml) 1,000 mls @ 0 mls/hr IV .Q0M PRN; Protocol PRN Reason: Hypoglycemia Protocol Nafcillin Sodium 2 gm/ Sodium (Chloride) 250 mls @ 250 mls/hr IVPB Q6H [facility]; Protocol Last Admin: 12/16/17 06:17 Dose: 250 mls/hr Vancomycin/Sodium Chloride (Vancomycin 1 Gm/Ns 200 Ml) 1 gm in 200 mls @ 133.333 mls/hr IVPB TTS [facility]; Protocol Stop: 12/19/17 10:01 Last Admin: 12/14/17 09:12 Dose: 133.333 mls/hr Heparin Sodium/Sodium Chloride (Heparin 16249 Units/250ml 1/2 Normal Saline) 25,000 units in 250 mls @ 16.184 mls/hr IV .[id number] PRN; Protocol PRN Reason: PROTOCOL Last Admin: 12/15/17 18:17 Dose: 16 units/kg/hr, 16.184 mls/hr Insulin Human Regular (Novolin R) 0 unit SC ACHS [facility]; Protocol Last Admin: 12/16/17 07:53 Dose: Not Given Metoprolol Tartrate (Lopressor) 25 mg PO BID [facility] Last Admin: 12/15/17 18:16 Dose: 25 mg Rosuvastatin Calcium (Crestor) 5 mg PO HS [facility] Last Admin: 12/15/17 22:45 Dose: 5 mg Sevelamer Carbonate (Renvela) 1,600 mg PO TIDCC [facility] Last Admin: 12/16/17 07:52 Dose: 1,600 mg Vitamin B Complex/Vit C/Folic Acid (Nephro-Joesph) 1 tab PO 0800 [facility] Last Admin: 12/16/17 07:52 Dose: 1 tab - Labs Labs: 12/16/17 06:15 12/16/17 06:15 PT 14.1 SECONDS (9.7-12.2) H 12/14/17 07:20 INR 1.3 12/14/17 07:20 APTT 36 SECONDS (21-34) H D 12/16/17 06:15 - Additional Findings Additional findings: - Constitutional Appears: Non-toxic, No Acute Distress, Not diaphoretic, uncomfortable - Head Exam Head Exam: ATRAUMATIC, NORMOCEPHALIC - Cardiovascular Exam Cardiovascular Exam: Improved HR and BP, REGULAR RHYTHM, +S1, +S2 - GI/Abdominal Exam GI & Abdominal Exam: Soft. absent: Distended, Firm, Guarding, Rigid, Tenderness Additional comments: R Femoral cath site without signs of hematoma, no TTP, dressing c/d/i Assessment and Plan - Assessment and Plan (Free Text) Assessment: Assessment: 47 y/o male patient with PMHx of PVD, DMII with neuropathy, ESRD (HD T,Th,Sat) who presents with NSTEMI, MSSA bacteremia sepsis to r/o endocarditis and s/p complete heart cath at [facility] 12/13. S/p HD 12/15. Pending transfer to [facility]. Plan: NSTEMI with elevated troponins, S/P KYLAH, R femoral cardiac cath - avoid hypotensive and bradycardic agents, currently HD MWF while hospitalized - s/p cardiac cath on 12/13- severe LAD calcified stenosis, moderate prox circumflex, moderate distal RCA, mild LV systolic dysfunction - TTE: EF 55-60% - KYLAH - no vegetations on prelim read - Metoprolol 25 mg PO BID - ASA 81 mg PO daily - Plavix 75 mg PO daily - Rosuvastatin 5 mg - Heparin drip - Staged surgical revascularization intervention, likely minimally invasive RAYMOND graft over sternotomy, after transfer and evaluation at [place] under [facility] once bed opens up Patient seen, case discussed, plan approved by Dr. Cortes. Further recs per Dr. Cortes. Ko Yousif, PGY-1
[2017-12-16 08:53] LABS: ANISOCYTOSIS SLIGHT; BANDS 2 % (0-2); LYMPHOCYTE 6 % (20-40); MONOCYTE 5 % (0-10); NEUTROPHIL 87 % (50-75); PLATELET ESTIMATE NORMAL (NORMAL); TOTAL CELLS COUNTED 100
[2017-12-16 08:54] LABS: HYPOCHROMIC SLIGHT; POLYCHROMIC SLIGHT; TARGET CELLS SLIGHT
[2017-12-16] MEDS: Heparin25000 units/250ml 1/2NS 25,000 UNITS/250 ML BAG IV PRN (12:19)
--- NOTE | 2017-12-16 12:51 | CP.PCM.PN ---
Subjective - Date & Time of Evaluation Date of Evaluation: 12/16/17 Time of Evaluation: 10:00 - Subjective Subjective: Patient was seen this morning. Has no complain,tiered,lying comfortable Awaiting to go to [facility] Objective - Vital Signs/Intake and Output Vital Signs (last 24 hours): Temp Pulse Resp BP Pulse Ox 98.9 F 76 15 147/87 98 12/16/17 04:00 12/16/17 06:02 12/16/17 06:02 12/16/17 09:29 12/16/17 06:02 Intake and Output: 12/16/17 12/16/17 06:59 18:59 Intake Total 594.2 266.2 Output Total 0 Balance 594.2 266.2 - Medications Medications: Current Medications Acetaminophen (Tylenol 325mg Tab) 650 mg PO Q6 PRN PRN Reason: Fever >100.4 F or Pain Last Admin: 12/15/17 19:13 Dose: 650 mg Aspirin (Ecotrin) 81 mg PO DAILY [facility] Last Admin: 12/16/17 09:28 Dose: 81 mg Clopidogrel Bisulfate (Plavix) 75 mg PO DAILY [facility] Last Admin: 12/16/17 09:28 Dose: 75 mg Dextrose (Dextrose 50% Inj) 0 ml IV STAT PRN; Protocol PRN Reason: Hypoglycemia Protocol Dextrose (Glutose 15) 0 gm PO ONCE PRN; Protocol PRN Reason: Hypoglycemia Protocol Famotidine (Pepcid) 20 mg PO DAILY [facility] Last Admin: 12/16/17 09:28 Dose: 20 mg Dextrose (Dextrose 5% In Water 1000 Ml) 1,000 mls @ 0 mls/hr IV .Q0M PRN; Protocol PRN Reason: Hypoglycemia Protocol Nafcillin Sodium 2 gm/ Sodium (Chloride) 250 mls @ 250 mls/hr IVPB Q6H [facility]; Protocol Last Admin: 12/16/17 06:17 Dose: 250 mls/hr Heparin Sodium/Sodium Chloride (Heparin 88117 Units/250ml 1/2 Normal Saline) 25,000 units in 250 mls @ 18.207 mls/hr IV .[id number] PRN; Protocol PRN Reason: PROTOCOL Last Admin: 12/16/17 12:19 Dose: 18 units/kg/hr, 18.207 mls/hr Vancomycin/Sodium Chloride (Vancomycin 1 Gm/Ns 200 Ml) 1 gm in 200 mls @ 133.333 mls/hr IVPB MWF [facility]; Protocol Stop: 12/22/17 09:01 Insulin Human Regular (Novolin R) 0 unit SC ACHS [facility]; Protocol Last Admin: 12/16/17 07:53 Dose: Not Given Metoprolol Tartrate (Lopressor) 25 mg PO BID [facility] Last Admin: 12/16/17 09:29 Dose: 25 mg Rosuvastatin Calcium (Crestor) 5 mg PO HS [facility] Last Admin: 12/15/17 22:45 Dose: 5 mg Sevelamer Carbonate (Renvela) 1,600 mg PO TIDCC [facility] Last Admin: 12/16/17 07:52 Dose: 1,600 mg Vitamin B Complex/Vit C/Folic Acid (Nephro-Joesph) 1 tab PO 0800 [facility] Last Admin: 12/16/17 07:52 Dose: 1 tab - Labs Labs: 12/16/17 06:15 12/16/17 06:15 PT 14.1 SECONDS (9.7-12.2) H 12/14/17 07:20 INR 1.3 12/14/17 07:20 APTT 36 SECONDS (21-34) H D 12/16/17 06:15 - Constitutional Appears: No Acute Distress - Head Exam Head Exam: NORMAL INSPECTION - Eye Exam Eye Exam: Normal appearance - ENT Exam ENT Exam: Mucous Membranes Moist - Neck Exam Neck Exam: Full ROM - Respiratory Exam Respiratory Exam: Clear to Ausculation Bilateral, NORMAL BREATHING PATTERN - Cardiovascular Exam Cardiovascular Exam: REGULAR RHYTHM - GI/Abdominal Exam GI & Abdominal Exam: Soft, Normal Bowel Sounds - Extremities Exam Extremities Exam: Full ROM. absent: Normal Inspection (left foot with callus and blister,right foot MTA,right hand swelling persist) - Back Exam Back Exam: NORMAL INSPECTION - Neurological Exam Neurological Exam: Awake, Oriented x3 - Psychiatric Exam Psychiatric exam: Normal Mood - Skin Skin Exam: Dry Assessment and Plan - Assessment and Plan (Free Text) Plan: 1.Elevated troponins,s/p cath with severe LAD stenosis s/p cardiac cath on 12/13- severe LAD calcified stenosis, moderate prox cir cumflex, moderate distal RCA, mild LV systolic dysfunction - Staged surgical revascularization intervention, likely minimally invasive RAYMOND graft over bypass as per cardiology Pending transfer to [facility] - Metoprolol 25 mg PO BID - ASA 81 mg PO daily - Plavix 75 mg PO daily - Rosuvastatin 5 mg - Heparin drip 2. V tach and code blue on 12/13-respond to shock x1 - s/p code blue 12/13 following cardiac cath and KYLAH at [facility] operator - Monitor vitals- hypotensive, not on pressors - Cardiology consulted (Sebastian) d/w Dr Cortes. patient awaiting for bed at [facility] 3. Sepsis- MSSA bacteremia, KYLAH without vegetation - Tmax 102.5- afebrile since 12/11 - Blood Cx: MSSA - Nafcillin 2 g IV Q6H.poor venous access. has swollen hand due to line infiltra nato,pending picc line - Vancomycin 1 g IV TTS after HD - ID consulted (Gabriela) 4. Back pain, chronic - Lumbar MRI: L5-S1 disc degeneration, cannot exclude osteomyelitis (rec IV contrast but ESRD) - Pelvis, hip CT: no acute fx - Hip/pelvis XR: L inferior ramus fx - Tylenol 650 mg PO Q6H PRN 5. 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
--- NOTE | 2017-12-16 19:29 | CP.PCM.PN ---
Subjective - Date & Time of Evaluation Date of Evaluation: 12/16/17 Time of Evaluation: 08:00 - Subjective Subjective: awaiting transfer recent sepsis/ bacteremia with severe back pain raising suspicion for dikitis KYLAH reportedly negative however found to have severe CAD will need MRI right foot when stable cont iv antibiotics for MSSA x 6-8 weeks Objective - Vital Signs/Intake and Output Vital Signs (last 24 hours): Temp Pulse Resp BP Pulse Ox 98.0 F 86 14 118/73 96 12/16/17 17:00 12/16/17 18:03 12/16/17 18:03 12/16/17 18:03 12/16/17 10:03 Intake and Output: 12/16/17 12/17/17 18:59 06:59 Intake Total 886.2 Output Total 0 Balance 886.2 - Medications Medications: Current Medications Acetaminophen (Tylenol 325mg Tab) 650 mg PO Q6 PRN PRN Reason: Fever >100.4 F or Pain Last Admin: 12/15/17 19:13 Dose: 650 mg Aspirin (Ecotrin) 81 mg PO DAILY [facility] Last Admin: 12/16/17 09:28 Dose: 81 mg Clopidogrel Bisulfate (Plavix) 75 mg PO DAILY [facility] Last Admin: 12/16/17 09:28 Dose: 75 mg Dextrose (Dextrose 50% Inj) 0 ml IV STAT PRN; Protocol PRN Reason: Hypoglycemia Protocol Dextrose (Glutose 15) 0 gm PO ONCE PRN; Protocol PRN Reason: Hypoglycemia Protocol Famotidine (Pepcid) 20 mg PO DAILY [facility] Last Admin: 12/16/17 09:28 Dose: 20 mg Dextrose (Dextrose 5% In Water 1000 Ml) 1,000 mls @ 0 mls/hr IV .Q0M PRN; Protocol PRN Reason: Hypoglycemia Protocol Nafcillin Sodium 2 gm/ Sodium (Chloride) 250 mls @ 250 mls/hr IVPB Q6H [facility]; Protocol Last Admin: 12/16/17 17:44 Dose: 250 mls/hr Heparin Sodium/Sodium Chloride (Heparin 45488 Units/250ml 1/2 Normal Saline) 25,000 units in 250 mls @ 18.207 mls/hr IV .[id number] PRN; Protocol PRN Reason: PROTOCOL Last Titration: 12/16/17 17:46 Dose: 15 units/kg/hr, 15.173 mls/hr Insulin Human Regular (Novolin R) 0 unit SC ACHS [facility]; Protocol Last Admin: 12/16/17 17:35 Dose: Not Given Metoprolol Tartrate (Lopressor) 25 mg PO BID [facility] Last Admin: 12/16/17 17:45 Dose: 25 mg Rosuvastatin Calcium (Crestor) 5 mg PO HS [facility] Last Admin: 12/15/17 22:45 Dose: 5 mg Sevelamer Carbonate (Renvela) 1,600 mg PO TIDCC [facility] Last Admin: 12/16/17 17:46 Dose: 1,600 mg Vitamin B Complex/Vit C/Folic Acid (Nephro-Joesph) 1 tab PO 0800 [facility] Last Admin: 12/16/17 07:52 Dose: 1 tab - Labs Labs: 12/16/17 06:15 12/16/17 06:15 PT 14.1 SECONDS (9.7-12.2) H 12/14/17 07:20 INR 1.3 12/14/17 07:20 APTT 126 SECONDS (21-34) H* D 12/16/17 15:59 Assessment and Plan (1) Diabetes mellitus Status: Acute (2) Fever Status: Acute (3) Obesity Status: Acute (4) Sepsis Status: Acute (5) Bacteremia Status: Chronic (6) PVD (peripheral vascular disease) Status: Chronic
--- NOTE | 2017-12-16 23:43 | CP.PCM.PN ---
Subjective - Date & Time of Evaluation Date of Evaluation: 12/16/17 Time of Evaluation: 16:00 - Subjective Subjective: SEEN ON RENAL F/U IN ICU C/O BACK PAIN PROBABLY 2/2 DISCKITIS HAD HD YESTERDAY .. TOLERATED WELL ALL PREVIOUS EMR REVIEWED Objective - Vital Signs/Intake and Output Vital Signs (last 24 hours): Temp Pulse Resp BP Pulse Ox 98.2 F 79 18 108/60 95 12/16/17 20:00 12/16/17 21:02 12/16/17 21:02 12/16/17 21:02 12/16/17 21:02 Intake and Output: 12/16/17 12/17/17 18:59 06:59 Intake Total 886.2 16.2 Output Total 0 Balance 886.2 16.2 - Medications Medications: Current Medications Acetaminophen (Tylenol 325mg Tab) 650 mg PO Q6 PRN PRN Reason: Fever >100.4 F or Pain Last Admin: 12/15/17 19:13 Dose: 650 mg Aspirin (Ecotrin) 81 mg PO DAILY [facility] Last Admin: 12/16/17 09:28 Dose: 81 mg Clopidogrel Bisulfate (Plavix) 75 mg PO DAILY [facility] Last Admin: 12/16/17 09:28 Dose: 75 mg Dextrose (Dextrose 50% Inj) 0 ml IV STAT PRN; Protocol PRN Reason: Hypoglycemia Protocol Dextrose (Glutose 15) 0 gm PO ONCE PRN; Protocol PRN Reason: Hypoglycemia Protocol Famotidine (Pepcid) 20 mg PO DAILY [facility] Last Admin: 12/16/17 09:28 Dose: 20 mg Dextrose (Dextrose 5% In Water 1000 Ml) 1,000 mls @ 0 mls/hr IV .Q0M PRN; Protocol PRN Reason: Hypoglycemia Protocol Nafcillin Sodium 2 gm/ Sodium (Chloride) 250 mls @ 250 mls/hr IVPB Q6H [facility]; Protocol Last Admin: 12/16/17 17:44 Dose: 250 mls/hr Heparin Sodium/Sodium Chloride (Heparin 15871 Units/250ml 1/2 Normal Saline) 25,000 units in 250 mls @ 18.207 mls/hr IV .[id number] PRN; Protocol PRN Reason: PROTOCOL Last Titration: 12/16/17 17:46 Dose: 15 units/kg/hr, 15.173 mls/hr Insulin Human Regular (Novolin R) 0 unit SC ACHS [facility]; Protocol Last Admin: 12/16/17 22:35 Dose: Not Given Metoprolol Tartrate (Lopressor) 25 mg PO BID [facility] Last Admin: 12/16/17 17:45 Dose: 25 mg Rosuvastatin Calcium (Crestor) 5 mg PO HS [facility] Last Admin: 12/16/17 22:34 Dose: 5 mg Sevelamer Carbonate (Renvela) 1,600 mg PO TIDCC [facility] Last Admin: 12/16/17 17:46 Dose: 1,600 mg Vitamin B Complex/Vit C/Folic Acid (Nephro-Joesph) 1 tab PO 0800 [facility] Last Admin: 12/16/17 07:52 Dose: 1 tab - Labs Labs: 12/16/17 06:15 12/16/17 06:15 PT 14.1 SECONDS (9.7-12.2) H 12/14/17 07:20 INR 1.3 12/14/17 07:20 APTT 126 SECONDS (21-34) H* D 12/16/17 15:59 Assessment and Plan - Assessment and Plan (Free Text) Assessment: ESRD ON HD ANEMIA OF [facility] ON EPO SEPSIS PROBABLY DISCKITIIE ..ON IVAB S/P CODE BLUE IN THE CARDIAC CATH CAD ON C CATH MMP P : C/O CURRENT MEDS C/O HD ON ON IVAB FOR SEPSIS AWAITING TRANSFER TO [facility] FOR SUR[facility]ERY
[2017-12-17 06:08] LABS: BASO % 0.4 % (0.0-2.0); EOS % 0.3 % (0.0-4.0); HEMOGLOBIN 9.2 g/dL (12.0-18.0); LYMPH # 0.9 K/uL (1.0-4.3); LYMPH % 9.2 % (20.0-40.0); MEAN CELL VOLUME 95.1 fL (80.0-94.0); MEAN CORPUSCULAR HEMOGLOBIN 31.4 pg (27.0-31.0); MEAN PLATELET VOLUME 8.2 fL (7.2-11.7); MONO # 0.5 K/uL (0.0-0.8); MONO % 5.7 % (0.0-10.0); NEUT # 8.1 K/uL (1.8-7.0); NEUT % 84.4 % (50.0-75.0); PLATELET COUNT 150 K/uL (130-400); RBC 2.93 Mil/uL (4.40-5.90); RED CELL DISTRIBUTION WIDTH 16.1 % (11.5-14.5); WHITE BLOOD COUNT 9.6 K/uL (4.8-10.8)
[2017-12-17 06:26] LABS: ALB/GLOB RATIO 0.8 (1.0-2.1); ALBUMIN 3.2 g/dL (3.5-5.0); CALCIUM 8.3 mg/dl (8.6-10.4)
[2017-12-17] MEDS: (Novolin R) Insulin Human Regular 100 units/ml vial SC SCH ×4 (07:52→22:39)
[2017-12-17] MEDS: Multivitamin Vitamin B Complex (Nephro-Vite) Tab PO SCH (08:22)
[2017-12-17 08:23] LABS: LYMPHOCYTE 10 % (20-40); MONOCYTE 3 % (0-10); NEUTROPHIL 87 % (50-75); TOTAL CELLS COUNTED 100
[2017-12-17 08:24] LABS: ANISOCYTOSIS SLIGHT; PLATELET ESTIMATE NORMAL (NORMAL)
[2017-12-17] MEDS ORDERED: Vancomycin 1 gm/NS 200 ml 1 GM/200 ML BAG IVPB SCH (09:00)
[2017-12-17] MEDS: Heparin25000 units/250ml 1/2NS 25,000 UNITS/250 ML BAG IV PRN ×2 (09:25→10:55)
--- NOTE | 2017-12-17 09:31 | CP.PCM.PN ---
<Antonieta Carranza - Last Filed: 12/17/17 18:36> Subjective - Date & Time of Evaluation Date of Evaluation: 12/17/17 Time of Evaluation: 09:31 - Subjective Subjective: Progress note for Hospitalist service Patient seen and examined at bedside. He states he does not have any chest pain, shortness of breath or palpitations currently. Currently only complaining of back pain. He denies headache, lightheadedness, changes in vision or hearing, sore throat, difficulty swallowing, abdominal pain, nausea, vomiting, diarrhea, constipation, leg pain. Objective - Vital Signs/Intake and Output Vital Signs (last 24 hours): Temp Pulse Resp BP Pulse Ox 98.8 F 73 17 133/71 98 12/17/17 04:00 12/17/17 07:00 12/17/17 07:00 12/17/17 09:24 12/17/17 07:00 Intake and Output: 12/17/17 12/17/17 06:59 18:59 Intake Total 902.4 245.2 Balance 902.4 245.2 - Medications Medications: Current Medications Acetaminophen (Tylenol 325mg Tab) 650 mg PO Q6 PRN PRN Reason: Fever >100.4 F or Pain Last Admin: 12/15/17 19:13 Dose: 650 mg Aspirin (Ecotrin) 81 mg PO DAILY [facility] Last Admin: 12/17/17 09:24 Dose: 81 mg Clopidogrel Bisulfate (Plavix) 75 mg PO DAILY [facility] Last Admin: 12/17/17 09:24 Dose: 75 mg Dextrose (Dextrose 50% Inj) 0 ml IV STAT PRN; Protocol PRN Reason: Hypoglycemia Protocol Dextrose (Glutose 15) 0 gm PO ONCE PRN; Protocol PRN Reason: Hypoglycemia Protocol Famotidine (Pepcid) 20 mg PO DAILY [facility] Last Admin: 12/17/17 09:24 Dose: 20 mg Dextrose (Dextrose 5% In Water 1000 Ml) 1,000 mls @ 0 mls/hr IV .Q0M PRN; Protocol PRN Reason: Hypoglycemia Protocol Nafcillin Sodium 2 gm/ Sodium (Chloride) 250 mls @ 250 mls/hr IVPB Q6H [facility]; Protocol Last Admin: 12/17/17 06:27 Dose: 250 mls/hr Heparin Sodium/Sodium Chloride (Heparin 84362 Units/250ml 1/2 Normal Saline) 25,000 units in 250 mls @ 18.207 mls/hr IV .[id number] PRN; Protocol PRN Reason: PROTOCOL Last Admin: 12/17/17 09:25 Dose: 15 units/kg/hr, 15.173 mls/hr Insulin Human Regular (Novolin R) 0 unit SC ACHS [facility]; Protocol Last Admin: 12/17/17 07:52 Dose: Not Given Metoprolol Tartrate (Lopressor) 25 mg PO BID [facility] Last Admin: 12/17/17 09:24 Dose: 25 mg Rosuvastatin Calcium (Crestor) 5 mg PO HS [facility] Last Admin: 12/16/17 22:34 Dose: 5 mg Sevelamer Carbonate (Renvela) 1,600 mg PO TIDCC [facility] Last Admin: 12/17/17 08:22 Dose: 1,600 mg Vitamin B Complex/Vit C/Folic Acid (Nephro-Joesph) 1 tab PO 0800 [facility] Last Admin: 12/17/17 08:22 Dose: 1 tab - Labs Labs: 12/17/17 06:05 12/17/17 06:05 PT 14.1 SECONDS (9.7-12.2) H 12/14/17 07:20 INR 1.3 12/14/17 07:20 APTT 81 SECONDS (21-34) H D 12/17/17 01:41 - Constitutional Appears: No Acute Distress - Head Exam Head Exam: ATRAUMATIC, NORMOCEPHALIC - Eye Exam Eye Exam: EOMI - ENT Exam ENT Exam: Mucous Membranes Moist - Neck Exam Neck Exam: Full ROM - Respiratory Exam Respiratory Exam: Clear to Ausculation Bilateral. absent: Rales, Rhonchi, Wheezes, Respiratory Distress, Stridor - Cardiovascular Exam Cardiovascular Exam: REGULAR RHYTHM, +S1, +S2. absent: Gallop, Rubs, Murmur - GI/Abdominal Exam GI & Abdominal Exam: Soft, Normal Bowel Sounds. absent: Distended, Firm, Guarding, Rigid, Tenderness, Organomegaly - Extremities Exam Additional comments: Right upper extremity: fistula with thrill palpable. Radial pulse present. Left hand: area of edema appears to have decreased. Able to make fist without issues. Radial pulses present - Neurological Exam Neurological Exam: Alert, Awake, Oriented x3 - Psychiatric Exam Psychiatric exam: Normal Affect, Normal Mood - Skin Skin Exam: Dry, Intact, Warm Additional comments: (+) Bilateral feet have hyperkeratotic lesions present, wrapped in dressings LLE: Left 4th digit amputation, RLE : Right Transmetarsal amputation, Assessment and Plan - Assessment and Plan (Free Text) Plan: Assessment/plan 47 year old male with history of ESRD on HD, PVD and Type 2 DM who initially presented to [place] for complaints of generalized body aches, cough and nausea after he skipped 2 dialysis sessions. He was treated for MSSA bacteremia after he was foudn to be febrile with elevated troponins and suspected endocarditis. Patient was transferred to [facility] for cardiac catheterization and KYLAH. After undergoing these procedures, patient strained for a bowel movement, syncopized and found to be in pulseless V tach. ROSC was achieved after co mpressions and 1 shock. Elevated troponins Status post cardiac cath on 12/13 which revealed severe calcified LAD stenosis, moderate prox circumflex, moderate distal RCA, mild LV systolic dysfunction As per cardiology, pending transfer to [place] for RAYMOND graft over sternotomy Metoprolol 25mg PO BID Crestor 5mg PO HS ASA 81mg Plavix 75mg PO On Heparin drip, continue to monitor PTT. Cardiology Dr. Cortes consulted, help appreciated Code blue Pulseless V tach s/p cath Continue to monitor vitals Cardiology Dr. Cortes As per cardiology, pending transfer to [place] for RAYMOND graft over sternotomy Cardiology Dr. Cortes consulted, help appreciated TTE: EF 55-60% KYLAH: no vegetations Sepsis History of MSSA Currently afebrile White count 9.6, improving ESR 114, CRP 159.2 Procal 12.49 Lactate 4.8 12/08 Blood cultures: MSSA 12/10 Repeat blood culture: negative Tylenol 650mg Q6 PRN KYLAH revealed no vegetations Nafcillin 2g IV ID Dr. Ochoa consulted, help appreciated As per ID, continue IV antibiotics for MSSA for 6-8 weeks. ESRD on HD I&Os on HD on MWF Nephrology Dr. Garnett consulted, help appreciated Currently on F schedule Renvela 1600mg PO TIDCC Nephrovite 1 tab PO Back pain Suspicious for discitis ID Dr. Ochoa consulted, help appreciated Lumbar MRI: L5-S1 disc degeneration, cannot exclude osteomyelitis (rec IV contrast but ESRD) Pelvis, hip CT: no acute fx Hip/pelvis XR: L inferior ramus fx Tylenol 650 mg PO Q6H PRN Type 2 DM Maintain euglycemia Hypoglycemic protocol ISS Hyperkeratotic lesions Right Transmetatarsal amputation, Left 4th digit amputation Podiatry Dr. Silva consulted Wound care consulted. Multipodus boots while in bed ID Dr. Ochoa recommends Right foot MRI when stable Anemia H/H (9.2/27.9) Continue to monitor PPX: DVT: Heparin GI: Pepcid 20mg Dispo: Pending transfer to [place] Case discussed with Dr. Philip Carranza, PGY1 <Varun Palacios - Last Filed: 12/18/17 15:45> Objective - Vital Signs/Intake and Output Vital Signs (last 24 hours): Temp Pulse Resp BP Pulse Ox 98.2 F 76 14 109/58 L 97 12/18/17 12:00 12/18/17 14:00 12/18/17 14:00 12/18/17 14:00 12/18/17 12:00 Intake and Output: 12/18/17 12/18/17 06:59 18:59 Intake Total 17.2 1650.4 Output Total 0 Balance 17.2 1650.4 - Medications Medications: Current Medications Acetaminophen (Tylenol 325mg Tab) 650 mg PO Q6 PRN PRN Reason: Fever >100.4 F or Pain Last Admin: 12/17/17 15:40 Dose: 650 mg Aspirin (Ecotrin) 81 mg PO DAILY [facility] Last Admin: 12/18/17 09:34 Dose: 81 mg Clopidogrel Bisulfate (Plavix) 75 mg PO DAILY [facility] Last Admin: 12/18/17 09:34 Dose: 75 mg Dextrose (Dextrose 50% Inj) 0 ml IV STAT PRN; Protocol PRN Reason: Hypoglycemia Protocol Dextrose (Glutose 15) 0 gm PO ONCE PRN; Protocol PRN Reason: Hypoglycemia Protocol Famotidine (Pepcid) 20 mg PO DAILY [facility] Last Admin: 12/18/17 09:34 Dose: 20 mg Dextrose (Dextrose 5% In Water 1000 Ml) 1,000 mls @ 0 mls/hr IV .Q0M PRN; Protocol PRN Reason: Hypoglycemia Protocol Nafcillin Sodium 2 gm/ Sodium (Chloride) 250 mls @ 250 mls/hr IVPB Q6H [facility]; Pr otocol Last Admin: 12/18/17 11:49 Dose: 250 mls/hr Heparin Sodium/Sodium Chloride (Heparin 16211 Units/250ml 1/2 Normal Saline) 25,000 units in 250 mls @ 17.196 mls/hr IV .[id number] PRN; Protocol PRN Reason: PROTOCOL Last Titration: 12/18/17 08:50 Dose: 16 units/kg/hr, 16.184 mls/hr Insulin Human Regular (Novolin R) 0 unit SC ACHS [facility]; Protocol Last Admin: 12/18/17 11:49 Dose: Not Given Metoprolol Tartrate (Lopressor) 25 mg PO BID [facility] Last Admin: 12/18/17 09:33 Dose: 25 mg Rosuvastatin Calcium (Crestor) 5 mg PO HS [facility] Last Admin: 12/17/17 22:38 Dose: 5 mg Sevelamer Carbonate (Renvela) 1,600 mg PO TIDCC [facility] Last Admin: 12/18/17 11:49 Dose: 1,600 mg Vitamin B Complex/Vit C/Folic Acid (Nephro-Joesph) 1 tab PO 0800 [facility] Last Admin: 12/18/17 08:21 Dose: 1 tab - Labs Labs: 12/18/17 06:49 12/18/17 06:49 PT 14.1 SECONDS (9.7-12.2) H 12/14/17 07:20 INR 1.3 12/14/17 07:20 APTT 56 SECONDS (21-34) H D 12/18/17 15:01 Attending/Attestation - Attestation I have personally seen and examined this patient.: Yes I have fully participated in the care of the patient.: Yes I have reviewed all pertinent clinical information, including history, physical exam and plan: Yes Notes (Text): Patient has no complain,s.p picc line for IV antibiotics awaitint to go to [facility] and the plan discussed with the resident I agree with the documentation
[2017-12-17] MEDS ORDERED: Heparin25000 units/250ml 1/2NS 25,000 UNITS/250 ML BAG IV PRN (10:30)
--- NOTE | 2017-12-17 17:49 | CP.PCM.PN ---
Subjective - Date & Time of Evaluation Date of Evaluation: 12/17/17 Time of Evaluation: 09:00 - Subjective Subjective: still c/o back pain recent sepsis/ bacteremia with severe back pain raising suspicion for discitis KYLAH reportedly negative however found to have severe CAD will need MRI right foot when stable cont iv antibiotics for MSSA x 6-8 weeks Objective - Vital Signs/Intake and Output Vital Signs (last 24 hours): Temp Pulse Resp BP Pulse Ox 98.2 F 74 20 118/60 98 12/17/17 16:05 12/17/17 16:10 12/17/17 16:10 12/17/17 17:18 12/17/17 16:10 Intake and Output: 12/17/17 12/17/17 06:59 18:59 Intake Total 902.4 767.0 Balance 902.4 767.0 - Medications Medications: Current Medications Acetaminophen (Tylenol 325mg Tab) 650 mg PO Q6 PRN PRN Reason: Fever >100.4 F or Pain Last Admin: 12/17/17 15:40 Dose: 650 mg Aspirin (Ecotrin) 81 mg PO DAILY [facility] Last Admin: 12/17/17 09:24 Dose: 81 mg Clopidogrel Bisulfate (Plavix) 75 mg PO DAILY [facility] Last Admin: 12/17/17 09:24 Dose: 75 mg Dextrose (Dextrose 50% Inj) 0 ml IV STAT PRN; Protocol PRN Reason: Hypoglycemia Protocol Dextrose (Glutose 15) 0 gm PO ONCE PRN; Protocol PRN Reason: Hypoglycemia Protocol Famotidine (Pepcid) 20 mg PO DAILY [facility] Last Admin: 12/17/17 09:24 Dose: 20 mg Dextrose (Dextrose 5% In Water 1000 Ml) 1,000 mls @ 0 mls/hr IV .Q0M PRN; Protocol PRN Reason: Hypoglycemia Protocol Nafcillin Sodium 2 gm/ Sodium (Chloride) 250 mls @ 250 mls/hr IVPB Q6H [facility]; Protocol Last Admin: 12/17/17 17:41 Dose: 250 mls/hr Heparin Sodium/Sodium Chloride (Heparin 40591 Units/250ml 1/2 Normal Saline) 25,000 units in 250 mls @ 17.196 mls/hr IV .[id number] PRN; Protocol PRN Reason: PROTOCOL Last Admin: 12/17/17 10:55 Dose: 17 units/kg/hr, 17.196 mls/hr Insulin Human Regular (Novolin R) 0 unit SC ACHS [facility]; Protocol Last Admin: 12/17/17 16:20 Dose: Not Given Metoprolol Tartrate (Lopressor) 25 mg PO BID [facility] Last Admin: 12/17/17 17:18 Dose: 25 mg Rosuvastatin Calcium (Crestor) 5 mg PO HS [facility] Last Admin: 12/16/17 22:34 Dose: 5 mg Sevelamer Carbonate (Renvela) 1,600 mg PO TIDCC [facility] Last Admin: 12/17/17 16:31 Dose: 1,600 mg Vitamin B Complex/Vit C/Folic Acid (Nephro-Joesph) 1 tab PO 0800 [facility] Last Admin: 12/17/17 08:22 Dose: 1 tab - Labs Labs: 12/17/17 06:05 12/17/17 06:05 PT 14.1 SECONDS (9.7-12.2) H 12/14/17 07:20 INR 1.3 12/14/17 07:20 APTT 70 SECONDS (21-34) H D 12/17/17 16:43 - Constitutional Appears: Non-toxic, Chronically Ill - Head Exam Head Exam: NORMOCEPHALIC - Eye Exam Eye Exam: absent: Scleral icterus - ENT Exam ENT Exam: Mucous Membranes Dry - Neck Exam Neck Exam: absent: Lymphadenopathy - Respiratory Exam Respiratory Exam: Decreased Breath Sounds - Cardiovascular Exam Cardiovascular Exam: REGULAR RHYTHM - GI/Abdominal Exam GI & Abdominal Exam: Distended - Rectal Exam Rectal Exam: Deferred - Exam Exam: NORMAL INSPECTION - Extremities Exam Extremities Exam: absent: Pedal Edema - Back Exam Back Exam: absent: CVA tenderness (L), CVA tenderness (R) Assessment and Plan (1) Diabetes mellitus Status: Acute (2) Fever Status: Acute (3) Obesity Status: Acute (4) Sepsis Status: Acute (5) Bacteremia Status: Chronic (6) PVD (peripheral vascular disease) Status: Chronic - Assessment and Plan (Free Text) Assessment: cont iv antibiotics 6-8 weeks recc: MRI right foot when stable for transfer to [place]
--- NOTE | 2017-12-17 18:30 | CP.PCM.PN ---
Subjective - Date & Time of Evaluation Date of Evaluation: 12/17/17 Time of Evaluation: 18:27 - Subjective Subjective: Podiatry Progress note for attending Dr. Silva Objective - Vital Signs/Intake and Output Vital Signs (last 24 hours): Temp Pulse Resp BP Pulse Ox 98.2 F 74 20 118/60 98 12/17/17 16:05 12/17/17 16:10 12/17/17 16:10 12/17/17 17:18 12/17/17 16:10 Intake and Output: 12/17/17 12/17/17 06:59 18:59 Intake Total 902.4 767.0 Balance 902.4 767.0 - Medications Medications: Current Medications Acetaminophen (Tylenol 325mg Tab) 650 mg PO Q6 PRN PRN Reason: Fever >100.4 F or Pain Last Admin: 12/17/17 15:40 Dose: 650 mg Aspirin (Ecotrin) 81 mg PO DAILY [facility] Last Admin: 12/17/17 09:24 Dose: 81 mg Clopidogrel Bisulfate (Plavix) 75 mg PO DAILY [facility] Last Admin: 12/17/17 09:24 Dose: 75 mg Dextrose (Dextrose 50% Inj) 0 ml IV STAT PRN; Protocol PRN Reason: Hypoglycemia Protocol Dextrose (Glutose 15) 0 gm PO ONCE PRN; Protocol PRN Reason: Hypoglycemia Protocol Famotidine (Pepcid) 20 mg PO DAILY [facility] Last Admin: 12/17/17 09:24 Dose: 20 mg Dextrose (Dextrose 5% In Water 1000 Ml) 1,000 mls @ 0 mls/hr IV .Q0M PRN; Protocol PRN Reason: Hypoglycemia Protocol Nafcillin Sodium 2 gm/ Sodium (Chloride) 250 mls @ 250 mls/hr IVPB Q6H [facility]; Protocol Last Admin: 12/17/17 17:41 Dose: 250 mls/hr Heparin Sodium/Sodium Chloride (Heparin 42179 Units/250ml 1/2 Normal Saline) 25,000 units in 250 mls @ 17.196 mls/hr IV .[id number] PRN; Protocol PRN Reason: PROTOCOL Last Admin: 12/17/17 10:55 Dose: 17 units/kg/hr, 17.196 mls/hr Insulin Human Regular (Novolin R) 0 unit SC ACHS [facility]; Protocol Last Admin: 12/17/17 16:20 Dose: Not Given Metoprolol Tartrate (Lopressor) 25 mg PO BID [facility] Last Admin: 12/17/17 17:18 Dose: 25 mg Rosuvastatin Calcium (Crestor) 5 mg PO HS [facility] Last Admin: 12/16/17 22:34 Dose: 5 mg Sevelamer Carbonate (Renvela) 1,600 mg PO TIDCC [facility] Last Admin: 12/17/17 16:31 Dose: 1,600 mg Vitamin B Complex/Vit C/Folic Acid (Nephro-Joesph) 1 tab PO 0800 [facility] Last Admin: 12/17/17 08:22 Dose: 1 tab - Labs Labs: 12/17/17 06:05 12/17/17 06:05 PT 14.1 SECONDS (9.7-12.2) H 12/14/17 07:20 INR 1.3 12/14/17 07:20 APTT 70 SECONDS (21-34) H D 12/17/17 16:43 - Constitutional Appears: Well, Non-toxic, No Acute Distress - Head Exam Head Exam: ATRAUMATIC, NORMOCEPHALIC - Extremities Exam Additional comments: Wellness check- dressing to lower extremity C/D/I - Neurological Exam Neurological Exam: Alert, Awake, Oriented x3 - Psychiatric Exam Psychiatric exam: Normal Affect, Normal Mood Assessment and Plan - Assessment and Plan (Free Text) Assessment: 47 y/o male patient seen and evaluated for b/l hyperkeratotic lesions- no clinical signs of infection in lower extremities Plan: Patient seen and evaluated Plan discussed with Dr. Silva Chart, labs and vitals were reviewed- afebrile at this time Bilateral Lower Extremity dressing C/D/I Patient to wear Multipodus boots at all times while in bed Podiatry will continue to follow while patient in house Thank you for allowing us to participate in patient's care
--- NOTE | 2017-12-18 00:01 | CARD ---
APPROVED REPORT Date of service: 12/13/2017 EKG Measurement Heart [id number] <Conclusion> Sinus rhythm , artifacts Left axis deviation Pulmonary disease pattern Nonspecific intraventricular conduction delay T wave abnormality, consider lateral ischemia Abnormal ECG
[2017-12-18 06:58] LABS: BASO # 0.1 K/uL (0.0-0.2); BASO % 1.1 % (0.0-2.0); EOS % 0.4 % (0.0-4.0); HEMOGLOBIN 9.1 g/dL (12.0-18.0); LYMPH # 0.7 K/uL (1.0-4.3); LYMPH % 8.7 % (20.0-40.0); MEAN CELL VOLUME 94.7 fL (80.0-94.0); MEAN CORPUSCULAR HEMOGLOBIN 31.7 pg (27.0-31.0); MEAN CORPUSCULAR HGB CONC 33.5 g/dL (33.0-37.0); MEAN PLATELET VOLUME 8.1 fL (7.2-11.7); MONO # 0.6 K/uL (0.0-0.8); MONO % 7.5 % (0.0-10.0); NEUT # 6.3 K/uL (1.8-7.0); NEUT % 82.3 % (50.0-75.0); PLATELET COUNT 167 K/uL (130-400); RBC 2.86 Mil/uL (4.40-5.90); RED CELL DISTRIBUTION WIDTH 15.9 % (11.5-14.5); WHITE BLOOD COUNT 7.6 K/uL (4.8-10.8)
[2017-12-18 07:10] LABS: ALB/GLOB RATIO 0.8 (1.0-2.1); CALCIUM 8.2 mg/dl (8.6-10.4)
[2017-12-18] MEDS: Multivitamin Vitamin B Complex (Nephro-Vite) Tab PO SCH (08:21)
[2017-12-18] MEDS: (Novolin R) Insulin Human Regular 100 units/ml vial SC SCH ×4 (08:24→21:49)
--- NOTE | 2017-12-18 08:53 | CP.PCM.PN ---
Subjective - Date & Time of Evaluation Date of Evaluation: 12/17/17 Time of Evaluation: 14:00 - Subjective Subjective: SEEN ON RENAL F/U IN ICU SEEN ON HD ..ORDERS D/W HD RN C/O SEVERE LOW BACK PAIN HD IS GOING WELL AWAITING FOR TRANSFER TO [facility] Objective - Vital Signs/Intake and Output Vital Signs (last 24 hours): Temp Pulse Resp BP Pulse Ox 98.9 F 80 16 128/66 98 12/18/17 04:00 12/18/17 04:00 12/18/17 04:00 12/18/17 06:00 12/18/17 04:00 Intake and Output: 12/18/17 12/18/17 06:59 18:59 Intake Total 17.2 956.4 Output Total 0 Balance 17.2 956.4 - Medications Medications: Current Medications Acetaminophen (Tylenol 325mg Tab) 650 mg PO Q6 PRN PRN Reason: Fever >100.4 F or Pain Last Admin: 12/17/17 15:40 Dose: 650 mg Aspirin (Ecotrin) 81 mg PO DAILY [facility] Last Admin: 12/17/17 09:24 Dose: 81 mg Clopidogrel Bisulfate (Plavix) 75 mg PO DAILY [facility] Last Admin: 12/17/17 09:24 Dose: 75 mg Dextrose (Dextrose 50% Inj) 0 ml IV STAT PRN; Protocol PRN Reason: Hypoglycemia Protocol Dextrose (Glutose 15) 0 gm PO ONCE PRN; Protocol PRN Reason: Hypoglycemia Protocol Famotidine (Pepcid) 20 mg PO DAILY [facility] Last Admin: 12/17/17 09:24 Dose: 20 mg Dextrose (Dextrose 5% In Water 1000 Ml) 1,000 mls @ 0 mls/hr IV .Q0M PRN; Protocol PRN Reason: Hypoglycemia Protocol Nafcillin Sodium 2 gm/ Sodium (Chloride) 250 mls @ 250 mls/hr IVPB Q6H [facility]; Protocol Last Admin: 12/18/17 06:47 Dose: 250 mls/hr Heparin Sodium/Sodium Chloride (Heparin 55130 Units/250ml 1/2 Normal Saline) 25,000 units in 250 mls @ 17.196 mls/hr IV .[id number] PRN; Protocol PRN Reason: PROTOCOL Last Titration: 12/18/17 07:50 Dose: 0 units/kg/hr, 0 mls/hr Insulin Human Regular (Novolin R) 0 unit SC ACHS [facility]; Protocol Last Admin: 12/18/17 08:24 Dose: Not Given Metoprolol Tartrate (Lopressor) 25 mg PO BID [facility] Last Admin: 12/17/17 17:18 Dose: 25 mg Rosuvastatin Calcium (Crestor) 5 mg PO HS [facility] Last Admin: 12/17/17 22:38 Dose: 5 mg Sevelamer Carbonate (Renvela) 1,600 mg PO TIDCC [facility] Last Admin: 12/18/17 08:20 Dose: 1,600 mg Vitamin B Complex/Vit C/Folic Acid (Nephro-Joesph) 1 tab PO 0800 [facility] Last Admin: 12/18/17 08:21 Dose: 1 tab - Labs Labs: 12/18/17 06:49 12/18/17 06:49 PT 14.1 SECONDS (9.7-12.2) H 12/14/17 07:20 INR 1.3 12/14/17 07:20 APTT 113 SECONDS (21-34) H* D 12/18/17 07:18 Assessment and Plan - Assessment and Plan (Free Text) Assessment: ESRD ON HD W ANEMIA OF CKD .. ON EPO ELECTROLUTES R OK CAD .. S/P C CATH .. S/P CODE BLUE AFTER THE CATH PROBABLE DISCITIS .. ON IVAB MMP P : C/O HD ON C/O CURENT MEDS C/O PRESENT MENEGEMNT C/O IVAB PER DR DANIELS AWAITING TRANSFER TO [facility]
[2017-12-18 09:36] LABS: BANDS 1 % (0-2); LYMPHOCYTE 8 % (20-40); MONOCYTE 6 % (0-10); NEUTROPHIL 85 % (50-75); PLATELET ESTIMATE NORMAL (NORMAL); TOTAL CELLS COUNTED 100
[2017-12-18 09:37] LABS: ANISOCYTOSIS SLIGHT
[2017-12-18 09:41] LABS: HYPOCHROMIC SLIGHT; POLYCHROMIC SLIGHT
[2017-12-18 09:42] LABS: TOXIC GRANULATION PRESENT
--- NOTE | 2017-12-18 12:15 | CP.PCM.PN ---
Subjective - Date & Time of Evaluation Date of Evaluation: 12/18/17 Time of Evaluation: 10:00 - Subjective Subjective: no complain,lying comfortable,Denies pain left hand swelling is improving/cellultits s/p picc line On heparin drip,pending transfer to [place] Objective - Vital Signs/Intake and Output Vital Signs (last 24 hours): Temp Pulse Resp BP Pulse Ox 97.8 F 76 12 124/63 80 L 12/18/17 08:00 12/18/17 11:00 12/18/17 11:00 12/18/17 10:00 12/18/17 11:00 Intake and Output: 12/18/17 12/18/17 06:59 18:59 Intake Total 17.2 1196.4 Output Total 0 Balance 17.2 1196.4 - Medications Medications: Current Medications Acetaminophen (Tylenol 325mg Tab) 650 mg PO Q6 PRN PRN Reason: Fever >100.4 F or Pain Last Admin: 12/17/17 15:40 Dose: 650 mg Aspirin (Ecotrin) 81 mg PO DAILY [facility] Last Admin: 12/18/17 09:34 Dose: 81 mg Clopidogrel Bisulfate (Plavix) 75 mg PO DAILY [facility] Last Admin: 12/18/17 09:34 Dose: 75 mg Dextrose (Dextrose 50% Inj) 0 ml IV STAT PRN; Protocol PRN Reason: Hypoglycemia Protocol Dextrose (Glutose 15) 0 gm PO ONCE PRN; Protocol PRN Reason: Hypoglycemia Protocol Famotidine (Pepcid) 20 mg PO DAILY [facility] Last Admin: 12/18/17 09:34 Dose: 20 mg Dextrose (Dextrose 5% In Water 1000 Ml) 1,000 mls @ 0 mls/hr IV .Q0M PRN; Protocol PRN Reason: Hypoglycemia Protocol Nafcillin Sodium 2 gm/ Sodium (Chloride) 250 mls @ 250 mls/hr IVPB Q6H [facility]; Pr otocol Last Admin: 12/18/17 11:49 Dose: 250 mls/hr Heparin Sodium/Sodium Chloride (Heparin 89966 Units/250ml 1/2 Normal Saline) 25,000 units in 250 mls @ 17.196 mls/hr IV .[id number] PRN; Protocol PRN Reason: PROTOCOL Last Titration: 12/18/17 08:50 Dose: 16 units/kg/hr, 16.184 mls/hr Insulin Human Regular (Novolin R) 0 unit SC ACHS [facility]; Protocol Last Admin: 12/18/17 11:49 Dose: Not Given Metoprolol Tartrate (Lopressor) 25 mg PO BID [facility] Last Admin: 12/18/17 09:33 Dose: 25 mg Rosuvastatin Calcium (Crestor) 5 mg PO HS [facility] Last Admin: 12/17/17 22:38 Dose: 5 mg Sevelamer Carbonate (Renvela) 1,600 mg PO TIDCC [facility] Last Admin: 12/18/17 11:49 Dose: 1,600 mg Vitamin B Complex/Vit C/Folic Acid (Nephro-Joesph) 1 tab PO 0800 [facility] Last Admin: 12/18/17 08:21 Dose: 1 tab - Labs Labs: 12/18/17 06:49 12/18/17 06:49 PT 14.1 SECONDS (9.7-12.2) H 12/14/17 07:20 INR 1.3 12/14/17 07:20 APTT 113 SECONDS (21-34) H* D 12/18/17 07:18 Assessment and Plan - Assessment and Plan (Free Text) Assessment: 47 year old male with history of ESRD on HD, PVD and Type 2 DM who initially presented to [place] for complaints of generalized body aches, cough and nausea after he skipped 2 dialysis sessions. He was treated for MSSA bacteremia after he was foudn to be febrile with elevated troponins and suspected endocarditis. Patient was transferred to [facility] for cardiac catheterization and KYLAH. After undergoing these procedures, patient strained for a bowel movement, syncopized and found to be in pulse less V tach. ROSC was achieved after compressions and 1 shock. Plan: Elevated troponins Status post cardiac cath on 12/13 which revealed severe calcified LAD stenosis, moderate prox circumflex, moderate distal RCA, mild LV systolic dysfunction As per cardiology, pending transfer to [place] for RAYMOND graft over sternotomy Metoprolol 25mg PO BID Crestor 5mg PO HS ASA 81mg Plavix 75mg PO On Heparin drip, continue to monitor PTT. Cardiology Dr. Cortes consulted, help appreciated Code blue Pulseless V tach s/p cath Continue to monitor vitals Cardiology Dr. Cortes As per cardiology, pending transfer to [place] for RAYMOND graft over sternotomy Cardiology Dr. Cortes consulted, help appreciated TTE: EF 55-60% KYLAH: no vegetations Sepsis History of MSSA Currently afebrile White count is down ESR 114, CRP 159.2 Procal 12.49 Lactate 4.8 12/08 Blood cultures: MSSA 12/10 Repeat blood culture: negative Tylenol 650mg Q6 PRN KYLAH revealed no vegetations Nafcillin 2g IV renewed today,continue antibiotics,s/p picc line ID Dr. Ochoa consulted, help appreciated As per ID, continue IV antibiotics for MSSA for 6-8 weeks. ESRD on HD I&Os on HD on [facility] Nephrology Dr. Garnett consulted, help appreciated Currently on [facility] schedule Renvela 1600mg PO TIDCC Nephrovite 1 tab PO Back pain Suspicious for discitis ID Dr. Ochoa consulted, help appreciated Lumbar MRI: L5-S1 disc degeneration, cannot exclude osteomyelitis (rec IV contrast but ESRD) Pelvis, hip CT: no acute fx Hip/pelvis XR: L inferior ramus fx Tylenol 650 mg PO Q6H PRN Type 2 DM Maintain euglycemia Hypoglycemic protocol ISS Hyperkeratotic lesions Right Transmetatarsal amputation, Left 4th digit amputation Podiatry Dr. Silva consulted Wound care consulted. Multipodus boots while in bed ID Dr. Ochoa recommends Right foot MRI when stable Anemia Continue to monitor PPX: DVT: Heparin drip GI: Pepcid 20mg Dispo: Pending transfer to [place]
[2017-12-18] MEDS: Heparin25000 units/250ml 1/2NS 25,000 UNITS/250 ML BAG IV PRN (18:57)
[2017-12-19 06:05] LABS: BASO # 0.1 K/uL (0.0-0.2); BASO % 0.9 % (0.0-2.0); EOS % 0.4 % (0.0-4.0); HEMOGLOBIN 8.7 g/dL (12.0-18.0); LYMPH # 0.8 K/uL (1.0-4.3); LYMPH % 10.3 % (20.0-40.0); MEAN CELL VOLUME 95.3 fL (80.0-94.0); MEAN CORPUSCULAR HEMOGLOBIN 32.3 pg (27.0-31.0); MEAN CORPUSCULAR HGB CONC 33.9 g/dL (33.0-37.0); MEAN PLATELET VOLUME 8.2 fL (7.2-11.7); MONO # 0.6 K/uL (0.0-0.8); MONO % 8.3 % (0.0-10.0); NEUT % 80.1 % (50.0-75.0); NRBC % 0.1 % (0.0-2.0); RBC 2.69 Mil/uL (4.40-5.90); RED CELL DISTRIBUTION WIDTH 16.4 % (11.5-14.5); WHITE BLOOD COUNT 7.5 K/uL (4.8-10.8)
[2017-12-19 06:31] LABS: ALB/GLOB RATIO 0.8 (1.0-2.1); CALCIUM 8.4 mg/dl (8.6-10.4)
[2017-12-19] MEDS: (Novolin R) Insulin Human Regular 100 units/ml vial SC SCH ×4 (08:12→21:29)
[2017-12-19] MEDS: Multivitamin Vitamin B Complex (Nephro-Vite) Tab PO SCH (08:26)
[2017-12-19] MEDS: Heparin25000 units/250ml 1/2NS 25,000 UNITS/250 ML BAG IV PRN (13:39)
--- NOTE | 2017-12-19 13:40 | CP.PCM.PN ---
Subjective - Date & Time of Evaluation Date of Evaluation: 12/19/17 Time of Evaluation: 10:00 - Subjective Subjective: Patient seen and examined at bedside. No overnight events reported. No new complaints at this time. Denies any chest pain, SOB, or abdominal pain. Objective - Vital Signs/Intake and Output Vital Signs (last 24 hours): Temp Pulse Resp BP Pulse Ox 98.9 F 82 18 127/58 L 98 12/19/17 04:00 12/19/17 08:15 12/19/17 04:00 12/19/17 09:44 12/18/17 21:00 Intake and Output: 12/19/17 12/19/17 06:59 18:59 Intake Total 1429 Output Total 0 Balance 1429 - Medications Medications: Current Medications Acetaminophen (Tylenol 325mg Tab) 650 mg PO Q6 PRN PRN Reason: Fever >100.4 F or Pain Last Admin: 12/18/17 21:53 Dose: 650 mg Aspirin (Ecotrin) 81 mg PO DAILY [facility] Last Admin: 12/19/17 09:44 Dose: 81 mg Clopidogrel Bisulfate (Plavix) 75 mg PO DAILY [facility] Last Admin: 12/19/17 09:44 Dose: 75 mg Dextrose (Dextrose 50% Inj) 0 ml IV STAT PRN; Protocol PRN Reason: Hypoglycemia Protocol Dextrose (Glutose 15) 0 gm PO ONCE PRN; Protocol PRN Reason: Hypoglycemia Protocol Famotidine (Pepcid) 20 mg PO DAILY [facility] Last Admin: 12/19/17 09:44 Dose: 20 mg Nafcillin Sodium 2 gm/ Sodium (Chloride) 250 mls @ 250 mls/hr IVPB Q6H [facility]; Protocol Last Admin: 12/19/17 12:47 Dose: 250 mls/hr Heparin Sodium/Sodium Chloride (Heparin 21572 Units/250ml 1/2 Normal Saline) 25,000 units in 250 mls @ 18.207 mls/hr IV .[id number] PRN; Protocol PRN Reason: PROTOCOL Last Titration: 12/19/17 00:30 Dose: 15 units/kg/hr, 15.173 mls/hr Insulin Human Regular (Novolin R) 0 unit SC ACHS [facility]; Protocol Last Admin: 12/19/17 12:16 Dose: Not Given Metoprolol Tartrate (Lopressor) 25 mg PO BID [facility] Last Admin: 12/19/17 09:44 Dose: 25 mg Rosuvastatin Calcium (Crestor) 5 mg PO HS [facility] Last Admin: 12/18/17 21:52 Dose: 5 mg Sevelamer Carbonate (Renvela) 1,600 mg PO TIDCC [facility] Last Admin: 12/19/17 12:47 Dose: 1,600 mg Vitamin B Complex/Vit C/Folic Acid (Nephro-Joesph) 1 tab PO 0800 [facility] Last Admin: 12/19/17 08:26 Dose: 1 tab - Labs Labs: 12/19/17 06:01 12/19/17 06:01 PT 14.1 SECONDS (9.7-12.2) H 12/14/17 07:20 INR 1.3 12/14/17 07:20 APTT 75 SECONDS (21-34) H D 12/19/17 06:01 - Additional Findings Additional findings: - Constitutional Appears: No Acute Distress, Lethargic - Head Exam Head Exam: ATRAUMATIC, NORMOCEPHALIC - Eye Exam Eye Exam: EOMI - ENT Exam ENT Exam: Mucous Membranes Moist - Neck Exam Neck Exam: Full ROM - Respiratory Exam Respiratory Exam: Clear to Ausculation Bilateral. absent: Rales, Rhonchi, Wheezes, Respiratory Distress, Stridor - Cardiovascular Exam Cardiovascular Exam: REGULAR RHYTHM, +S1, +S2. absent: Gallop, Rubs, Murmur - GI/Abdominal Exam GI & Abdominal Exam: Soft, Normal Bowel Sounds. absent: Distended, Firm, Guarding, Rigid, Tenderness, Organomegaly - Extremities Exam Additional comments: Right upper extremity: fistula with thrill palpable. Radial pulse present. Left hand: area of edema appears to have decreased. Able to make fist without issues. Radial pulses present - Neurological Exam Neurological Exam: Alert, Awake, Oriented x3 - Psychiatric Exam Psychiatric exam: Normal Affect, Normal Mood - Skin Skin Exam: Dry, Intact, Warm Additional comments: (+) Bilateral feet have hyperkeratotic lesions present, wrapped in dressings LLE: Left 4th digit amputation, RLE : Right Transmetarsal amputation, Assessment and Plan - Assessment and Plan (Free Text) Assessment: 47 year old male with history of ESRD on HD, PVD and Type 2 DM who initially presented to [place] for complaints of generalized body aches, cough and nausea after he skipped 2 dialysis sessions. He was treated for MSSA bacteremia after he was foudn to be febrile with elevated troponins and suspected endocarditis. Patient was transferred to [facility] for cardiac catheterization and KYLAH. After undergoing these procedures, patient strained for a bowel movement, syncopized and found to be in pulse less V tach. ROSC was achieved after compressions and 1 shock. Plan: Elevated troponins Status post cardiac cath on 12/13 which revealed severe calcified LAD stenosis, moderate prox circumflex, moderate distal RCA, mild LV systolic dysfunction As per cardiology, pending transfer to [place] for RAYMOND graft over sternotomy Metoprolol 25mg PO BID Crestor 5mg PO HS ASA 81mg Plavix 75mg PO On Heparin drip, continue to monitor PTT. Cardiology Dr. Cortes consulted, help appreciated Code blue Pulseless V tach s/p cath Continue to monitor vitals Cardiology Dr. Cortes As per cardiology, pending transfer to [place] for RAYMOND graft over sternotomy Cardiology Dr. Cortes consulted, help appreciated TTE: EF 55-60% KYLAH: no vegetations Sepsis History of MSSA Currently afebrile White count is down ESR 114, CRP 159.2 Procal 12.49 Lactate 4.8 12/08 Blood cultures: MSSA 12/10 Repeat blood culture: negative Tylenol 650mg Q6 PRN KYLAH revealed no vegetations Nafcillin 2g IV renewed today,continue antibiotics,s/p picc line ID Dr. Ochoa consulted, help appreciated As per ID, continue IV antibiotics for MSSA for 6-8 weeks. ESRD on HD I&Os on HD on [facility] Nephrology Dr. Garnett consulted, help appreciated Currently on [facility] schedule Renvela 1600mg PO TIDCC Nephrovite 1 tab PO Back pain Suspicious for discitis ID Dr. Ochoa consulted, help appreciated Lumbar MRI: L5-S1 disc degeneration, cannot exclude osteomyelitis (rec IV contrast but ESRD) Pelvis, hip CT: no acute fx Hip/pelvis XR: L inferior ramus fx Tylenol 650 mg PO Q6H PRN Type 2 DM Maintain euglycemia Hypoglycemic protocol ISS Hyperkeratotic lesions Right Transmetatarsal amputation, Left 4th digit amputation Podiatry Dr. Silva consulted Wound care consulted. Multipodus boots while in bed ID Dr. Ochoa recommends Right foot MRI when stable Anemia Continue to monitor PPX: DVT: Heparin drip GI: Pepcid 20mg Dispo: Pending transfer to [place] Patient seen and discussed with Attending. Arturo Galeano, PGY2
--- NOTE | 2017-12-19 13:46 | CP.PCM.PN ---
Subjective - Date & Time of Evaluation Date of Evaluation: 12/19/17 Time of Evaluation: 13:46 - Subjective Subjective: Podiatry Progress note: Dr. Silva 47M patient seen and evaluated at bedside for b/l hyperkeratotic lesions. Patient is resting comforatbly in bed and denies any pain to his b/l lower extremities. He reports lower back pain at this time. He denies any other pedal complaints and notes that his legs/feet are no longer draining. Patient denies N/V/F. Objective - Vital Signs/Intake and Output Vital Signs (last 24 hours): Temp Pulse Resp BP Pulse Ox 98.9 F 82 18 127/58 L 98 12/19/17 04:00 12/19/17 08:15 12/19/17 04:00 12/19/17 09:44 12/18/17 21:00 Intake and Output: 12/19/17 12/19/17 06:59 18:59 Intake Total 1429 150 Output Total 0 Balance 1429 150 - Medications Medications: Current Medications Acetaminophen (Tylenol 325mg Tab) 650 mg PO Q6 PRN PRN Reason: Fever >100.4 F or Pain Last Admin: 12/18/17 21:53 Dose: 650 mg Aspirin (Ecotrin) 81 mg PO DAILY [facility] Last Admin: 12/19/17 09:44 Dose: 81 mg Clopidogrel Bisulfate (Plavix) 75 mg PO DAILY [facility] Last Admin: 12/19/17 09:44 Dose: 75 mg Dextrose (Dextrose 50% Inj) 0 ml IV STAT PRN; Protocol PRN Reason: Hypoglycemia Protocol Dextrose (Glutose 15) 0 gm PO ONCE PRN; Protocol PRN Reason: Hypoglycemia Protocol Famotidine (Pepcid) 20 mg PO DAILY [facility] Last Admin: 12/19/17 09:44 Dose: 20 mg Nafcillin Sodium 2 gm/ Sodium (Chloride) 250 mls @ 250 mls/hr IVPB Q6H [facility]; Protocol Last Admin: 12/19/17 12:47 Dose: 250 mls/hr Heparin Sodium/Sodium Chloride (Heparin 56821 Units/250ml 1/2 Normal Saline) 25,000 units in 250 mls @ 18.207 mls/hr IV .[id number] PRN; Protocol PRN Reason: PROTOCOL Last Admin: 12/19/17 13:39 Dose: 15 units/kg/hr, 15.173 mls/hr Insulin Human Regular (Novolin R) 0 unit SC ACHS [facility]; Protocol Last Admin: 12/19/17 12:16 Dose: Not Given Metoprolol Tartrate (Lopressor) 25 mg PO BID [facility] Last Admin: 12/19/17 09:44 Dose: 25 mg Rosuvastatin Calcium (Crestor) 5 mg PO HS [facility] Last Admin: 12/18/17 21:52 Dose: 5 mg Sevelamer Carbonate (Renvela) 1,600 mg PO TIDCC [facility] Last Admin: 12/19/17 12:47 Dose: 1,600 mg Vitamin B Complex/Vit C/Folic Acid (Nephro-Joesph) 1 tab PO 0800 [facility] Last Admin: 12/19/17 08:26 Dose: 1 tab - Labs Labs: 12/19/17 06:01 12/19/17 06:01 PT 14.1 SECONDS (9.7-12.2) H 12/14/17 07:20 INR 1.3 12/14/17 07:20 APTT 75 SECONDS (21-34) H D 12/19/17 06:01 - Constitutional Appears: Non-toxic, No Acute Distress - Head Exam Head Exam: ATRAUMATIC - Extremities Exam Additional comments: B/L Lower Extremity Exam Vasc: R/L DP 1/4 and PT 2/4, CFT < 3 seconds x 4 to the Left, TG increased temperature noted bilaterally, no pedal edema Ortho: No pain upon palpation, TMA to the right foot, and previous amputation of the left fourth and partial fifth digits, no pain with ankle range of motion Neuro: Epicritic and protective sensation grossly diminished b/l Derm: RLE- plantar hyperkeratotic lesion noted with no surrounding erythema noted, no open wounds, no malodor, no drainage, no clinical signs of infection, significant plantar and dorsal xerosis noted; LLE- Plantar hyperkeratotic lesion submet 1, no open wounds, no drainage, no clinical signs of infection - Neurological Exam Neurological Exam: Alert, Awake, Oriented x3 - Psychiatric Exam Psychiatric exam: Normal Affect, Normal Mood - Skin Skin Exam: Warm Assessment and Plan - Assessment and Plan (Free Text) Assessment: 47M patient seen and evaluated for b/l hyperkeratotic lesions- no clinical signs of infection in lower extremities Plan: Patient seen and evaluated Plan discussed with Dr. Silva Bilateral Lower Extremity dressing C/D/I RLE left open to air, LLE dressed with DSD Patient to wear Multipodus boots at all times while in bed Will continue to follow while patient in house
--- NOTE | 2017-12-19 18:21 | CP.PCM.PN ---
Subjective - Date & Time of Evaluation Date of Evaluation: 12/19/17 Time of Evaluation: 08:00 - Subjective Subjective: awake alert denies fever c/o back pain Objective - Vital Signs/Intake and Output Vital Signs (last 24 hours): Temp Pulse Resp BP Pulse Ox 98.7 F 86 20 126/64 95 12/19/17 16:00 12/19/17 17:00 12/19/17 16:00 12/19/17 17:27 12/19/17 16:00 Intake and Output: 12/19/17 12/19/17 06:59 18:59 Intake Total 1429 150 Output Total 0 Balance 1429 150 - Medications Medications: Current Medications Acetaminophen (Tylenol 325mg Tab) 650 mg PO Q6 PRN PRN Reason: Fever >100.4 F or Pain Last Admin: 12/19/17 14:10 Dose: 650 mg Aspirin (Ecotrin) 81 mg PO DAILY [facility] Last Admin: 12/19/17 09:44 Dose: 81 mg Clopidogrel Bisulfate (Plavix) 75 mg PO DAILY [facility] Last Admin: 12/19/17 09:44 Dose: 75 mg Dextrose (Dextrose 50% Inj) 0 ml IV STAT PRN; Protocol PRN Reason: Hypoglycemia Protocol Dextrose (Glutose 15) 0 gm PO ONCE PRN; Protocol PRN Reason: Hypoglycemia Protocol Famotidine (Pepcid) 20 mg PO DAILY [facility] Last Admin: 12/19/17 09:44 Dose: 20 mg Nafcillin Sodium 2 gm/ Sodium (Chloride) 250 mls @ 250 mls/hr IVPB Q6H [facility]; Protocol Last Admin: 12/19/17 12:47 Dose: 250 mls/hr Heparin Sodium/Sodium Chloride (Heparin 70362 Units/250ml 1/2 Normal Saline) 25,000 units in 250 mls @ 18.207 mls/hr IV .[id number] PRN; Protocol PRN Reason: PROTOCOL Last Admin: 12/19/17 13:39 Dose: 15 units/kg/hr, 15.173 mls/hr Insulin Human Regular (Novolin R) 0 unit SC ACHS [facility]; Protocol Last Admin: 12/19/17 16:19 Dose: Not Given Metoprolol Tartrate (Lopressor) 25 mg PO BID [facility] Last Admin: 12/19/17 17:27 Dose: 25 mg Rosuvastatin Calcium (Crestor) 5 mg PO HS [facility] Last Admin: 12/18/17 21:52 Dose: 5 mg Sevelamer Carbonate (Renvela) 1,600 mg PO TIDCC [facility] Last Admin: 12/19/17 16:36 Dose: 1,600 mg Vitamin B Complex/Vit C/Folic Acid (Nephro-Joesph) 1 tab PO 0800 [facility] Last Admin: 12/19/17 08:26 Dose: 1 tab - Labs Labs: 12/19/17 06:01 12/19/17 06:01 PT 14.1 SECONDS (9.7-12.2) H 12/14/17 07:20 INR 1.3 12/14/17 07:20 APTT 78 SECONDS (21-34) H 12/19/17 13:38 - Constitutional Appears: Chronically Ill - Head Exam Head Exam: NORMOCEPHALIC - Eye Exam Eye Exam: absent: Scleral icterus - ENT Exam ENT Exam: Mucous Membranes Dry - Neck Exam Neck Exam: absent: Lymphadenopathy - Respiratory Exam Respiratory Exam: Decreased Breath Sounds - Cardiovascular Exam Cardiovascular Exam: REGULAR RHYTHM - GI/Abdominal Exam GI & Abdominal Exam: Distended Assessment and Plan (1) Diabetes mellitus Status: Acute (2) Fever Status: Acute (3) Obesity Status: Acute (4) Sepsis Status: Acute (5) Bacteremia Status: Chronic (6) PVD (peripheral vascular disease) Status: Chronic
--- NOTE | 2017-12-20 07:21 | CP.PCM.PN ---
Subjective - Date & Time of Evaluation Date of Evaluation: 12/20/17 Time of Evaluation: 07:21 - Subjective Subjective: Progress note Objective - Vital Signs/Intake and Output Vital Signs (last 24 hours): Temp Pulse Resp BP Pulse Ox 98.5 F 79 16 117/62 94 L 12/19/17 20:00 12/19/17 20:00 12/19/17 20:00 12/19/17 20:00 12/19/17 20:00 - Medications Medications: Current Medications Acetaminophen (Tylenol 325mg Tab) 650 mg PO Q6 PRN PRN Reason: Fever >100.4 F or Pain Last Admin: 12/20/17 01:39 Dose: 650 mg Aspirin (Ecotrin) 81 mg PO DAILY [facility] Last Admin: 12/19/17 09:44 Dose: 81 mg Clopidogrel Bisulfate (Plavix) 75 mg PO DAILY [facility] Last Admin: 12/19/17 09:44 Dose: 75 mg Dextrose (Dextrose 50% Inj) 0 ml IV STAT PRN; Protocol PRN Reason: Hypoglycemia Protocol Dextrose (Glutose 15) 0 gm PO ONCE PRN; Protocol PRN Reason: Hypoglycemia Protocol Famotidine (Pepcid) 20 mg PO DAILY [facility] Last Admin: 12/19/17 09:44 Dose: 20 mg Nafcillin Sodium 2 gm/ Sodium (Chloride) 250 mls @ 250 mls/hr IVPB Q6H [facility]; Protocol Last Admin: 12/20/17 06:02 Dose: 250 mls/hr Heparin Sodium/Sodium Chloride (Heparin 21427 Units/250ml 1/2 Normal Saline) 25,000 units in 250 mls @ 18.207 mls/hr IV .[id number] PRN; Protocol PRN Reason: PROTOCOL Last Admin: 12/19/17 13:39 Dose: 15 units/kg/hr, 15.173 mls/hr Insulin Human Regular (Novolin R) 0 unit SC ACHS [facility]; Protocol Last Admin: 12/19/17 21:29 Dose: Not Given Metoprolol Tartrate (Lopressor) 25 mg PO BID [facility] Last Admin: 12/19/17 17:27 Dose: 25 mg Rosuvastatin Calcium (Crestor) 5 mg PO HS [facility] Last Admin: 12/19/17 21:31 Dose: 5 mg Sevelamer Carbonate (Renvela) 1,600 mg PO TIDCC [facility] Last Admin: 12/19/17 16:36 Dose: 1,600 mg Vitamin B Complex/Vit C/Folic Acid (Nephro-Joesph) 1 tab PO 0800 [facility] Last Admin: 12/19/17 08:26 Dose: 1 tab - Labs Labs: 12/19/17 06:01 12/19/17 06:01 PT 14.1 SECONDS (9.7-12.2) H 12/14/17 07:20 INR 1.3 12/14/17 07:20 APTT 59 SECONDS (21-34) H D 12/20/17 05:03
[2017-12-20 08:19] LABS: VENOUS BLOOD GAS BASE EXCESS -2.3 mmol/L (0.0-2.0); VENOUS BLOOD GAS PCO2 38 mmHg (40-60); VENOUS BLOOD GAS PO2 48 mm/Hg (30-55); VENOUS BLOOD PH 7.38 (7.32-7.43)
[2017-12-20 08:53] LABS: BASO # 0.1 K/uL (0.0-0.2); BASO % 0.9 % (0.0-2.0); EOS % 0.7 % (0.0-4.0); HEMOGLOBIN 8.6 g/dL (12.0-18.0); LYMPH # 0.7 K/uL (1.0-4.3); LYMPH % 11.3 % (20.0-40.0); MEAN CELL VOLUME 96.5 fL (80.0-94.0); MEAN CORPUSCULAR HEMOGLOBIN 32.4 pg (27.0-31.0); MEAN CORPUSCULAR HGB CONC 33.6 g/dL (33.0-37.0); MEAN PLATELET VOLUME 8.1 fL (7.2-11.7); MONO # 0.6 K/uL (0.0-0.8); MONO % 9.1 % (0.0-10.0); NEUT # 5.1 K/uL (1.8-7.0); NRBC % 0.1 % (0.0-2.0); RBC 2.65 Mil/uL (4.40-5.90); RED CELL DISTRIBUTION WIDTH 17.2 % (11.5-14.5); WHITE BLOOD COUNT 6.6 K/uL (4.8-10.8)
[2017-12-20 09:18] VITALS: RESP 20
[2017-12-20 09:26] LABS: ALB/GLOB RATIO 0.7 (1.0-2.1); ALBUMIN 2.8 g/dL (3.5-5.0); CALCIUM 7.9 mg/dl (8.6-10.4)
[2017-12-20] MEDS ORDERED: Epoetin Alfa 10,000 unit/ml Dialysis IV SCH (12:30)
[2017-12-20] MEDS ORDERED: Ferric Sodium Gluconat Complex 62.5 mg/5 ml Vial IVPB SCH (12:30)
[2017-12-20] MEDS: Multivitamin Vitamin B Complex (Nephro-Vite) Tab PO SCH (13:17)
[2017-12-20] MEDS: (Novolin R) Insulin Human Regular 100 units/ml vial SC SCH ×2 (13:17→16:30)
[2017-12-20] MEDS: oxyCODONE 5 mg Immediate Release Tab PO PRN ×2 (13:50→20:29)
--- NOTE | 2017-12-20 17:41 | CP.PCM.DIS ---
Provider - Provider Date of Admission: 12/13/17 17:02 Attending physician: Roque Willson DO Primary care physician: Jason Alexander Consults: Cardiology Dr. Sebastian Ochoa Nephrology Dr. Garnett Podiatry Dr. Silva Time Spent in preparation of Discharge (in minutes): 40 Hospital Course - Lab Results Lab Results: Micro Results 12/20/17 08:57 Nose MRSA Culture - Final MRSA NOT DETECTED 12/14/17 03:37 Naris MRSA Culture (Admit) - Final MRSA NOT DETECTED Most Recent Lab Values WBC 6.6 K/uL (4.8-10.8) 12/20/17 08:38 RBC 2.65 Mil/uL (4.40-5.90) L 12/20/17 08:38 Hgb 8.6 g/dL (12.0-18.0) L 12/20/17 08:38 Hct 25.6 % (35.0-51.0) L 12/20/17 08:38 MCV 96.5 fL (80.0-94.0) H 12/20/17 08:38 MCH 32.4 pg (27.0-31.0) H 12/20/17 08:38 MCHC 33.6 g/dL (33.0-37.0) 12/20/17 08:38 RDW 17.2 % (11.5-14.5) H 12/20/17 08:38 Plt Count 164 K/uL (130-400) 12/20/17 08:38 MPV 8.1 fL (7.2-11.7) 12/20/17 08:38 Neut % (Auto) 78.0 % (50.0-75.0) H 12/20/17 08:38 Lymph % (Auto) 11.3 % (20.0-40.0) L 12/20/17 08:38 [place] % (Auto) 9.1 % (0.0-10.0) 12/20/17 08:38 Eos % (Auto) 0.7 % (0.0-4.0) 12/20/17 08:38 Baso % (Auto) 0.9 % (0.0-2.0) 12/20/17 08:38 Neut # (Auto) 5.1 K/uL (1.8-7.0) 12/20/17 08:38 Lymph # (Auto) 0.7 K/uL (1.0-4.3) L 12/20/17 08:38 Edmonson # (Auto) 0.6 K/uL (0.0-0.8) 12/20/17 08:38 Eos # (Auto) 0.0 K/uL (0.0-0.7) 12/20/17 08:38 Baso # (Auto) 0.1 K/uL (0.0-0.2) 12/20/17 08:38 Neutrophils % (Manual) 85 % (50-75) H 12/18/17 06:49 Band Neutrophils % 1 % (0-2) 12/18/17 06:49 Lymphocytes % (Manual) 8 % (20-40) L 12/18/17 06:49 Monocytes % (Manual) 6 % (0-10) 12/18/17 06:49 Myelocytes % 1 % (0-0) H 12/13/17 16:54 Toxic Granulation Present 12/18/17 06:49 Platelet Estimate Normal (NORMAL) 12/18/17 06:49 Polychromasia Slight 12/18/17 06:49 Hypochromasia (manual) Slight 12/18/17 06:49 Poikilocytosis (manual Slight 12/14/17 07:20 Basophilic Stippling Slight 12/18/17 06:49 Anisocytosis (manual) Slight 12/18/17 06:49 Macrocytosis (manual) Slight 12/18/17 06:49 Target Cells Slight 12/16/17 06:15 PT 14.1 SECONDS (9.7-12.2) H 12/14/17 07:20 INR 1.3 12/14/17 07:20 APTT 59 SECONDS (21-34) H D 12/20/17 05:03 Puncture Site Arterial 12/13/17 14:33 pCO2 27 mm/Hg (35-45) L 12/13/17 14:33 pO2 48 mm/Hg (30-55) 12/20/17 08:15 HCO3 22.8 mmol/L (21-28) 12/13/17 14:33 ABG pH 7.47 (7.35-7.45) H 12/13/17 14:33 ABG Total CO2 20.5 mmol/L (22-28) L 12/13/17 14:33 ABG Base Excess -2.6 mmol/L (-2.0-3.0) L 12/13/17 14:33 Daniel Test Na 12/13/17 14:33 VBG pH 7.38 (7.32-7.43) 12/20/17 08:15 VBG pCO2 38 mmHg (40-60) L 12/20/17 08:15 VBG HCO3 22.7 mmol/L 12/20/17 08:15 VBG Total CO2 23.7 mmol/L (22-28) 12/20/17 08:15 VBG O2 Sat (Calc) 86.7 % (40-65) H 12/20/17 08:15 VBG Base Excess -2.3 mmol/L (0.0-2.0) L 12/20/17 08:15 VBG Potassium 4.4 mmol/L (3.6-5.2) 12/20/17 08:15 Sodium 135.0 mmol/l (132-148) 12/20/17 08:15 Chloride 102.0 mmol/L (98-107) 12/20/17 08:15 Glucose 83 mg/dl (75-110) 12/20/17 08:15 Lactate 0.9 mmol/L (0.7-2.1) 12/20/17 08:15 FiO2 21.0 % 12/20/17 08:15 Sodium 135 mmol/L (132-148) 12/20/17 08:38 Potassium 4.8 mmol/L (3.6-5.2) 12/20/17 08:38 Chloride 97 mmol/L (98-107) L 12/20/17 08:38 Carbon Dioxide 20 mmol/L (22-30) L 12/20/17 08:38 Anion Gap 22 (10-20) H 12/20/17 08:38 BUN 53 mg/dL (9-20) H 12/20/17 08:38 Creatinine 9.2 mg/dL (0.8-1.5) H* D 12/20/17 08:38 Est GFR ( Amer) 7 12/20/17 08:38 Est GFR (Non-Af Amer) 6 12/20/17 08:38 POC Glucose (mg/dL) 110 mg/dL (65-110) 12/20/17 11:53 Random Glucose 90 mg/dL (75-110) 12/20/17 08:38 Calcium 7.9 mg/dl (8.6-10.4) L 12/20/17 08:38 Phosphorus 8.8 mg/dL (2.5-4.5) H 12/20/17 08:38 Magnesium 2.5 mg/dL (1.6-2.3) H 12/20/17 08:38 Total Bilirubin 4.7 mg/dL (0.2-1.3) H 12/20/17 08:38 AST 27 U/L (17-59) 12/20/17 08:38 ALT 7 U/L (21-72) L D 12/20/17 08:38 Alkaline Phosphatase 143 U/L (38-126) H D 12/20/17 08:38 Troponin I 0.4700 ng/mL (0.00-0.120) H* 12/13/17 16:57 Total Protein 6.7 g/dL (6.3-8.3) 12/20/17 08:38 Albumin 2.8 g/dL (3.5-5.0) L 12/20/17 08:38 Globulin 3.9 gm/dL (2.2-3.9) 12/20/17 08:38 Albumin/Globulin Ratio 0.7 (1.0-2.1) L 12/20/17 08:38 Venous Blood Potassium 4.4 mmol/L (3.6-5.2) 12/20/17 08:15 Hep Bs Antigen Negative (NEGATIVE) 12/14/17 18:47 - Hospital Course Hospital Course: On admission: Patient is a 47 yo male with a history of ESRD on HD (TTS), PVD, and T2DM presented to the ED at [place] with body aches, cough, and nausea. He skipped 2 sessions of HD. He was found to be febrile (102). At [place], he was being treated for MSSA bacteremia and elevated troponins with suspected endocarditis. He was transferred temporarily to [facility] for cath and KYLAH. Following these procedures, patient strained for BM and code blue was called due to pulseless Vtach. Patient achieved ROSC and became responsive following chest compressions and one defibrillator shock. Hospital course: Patient was transferred from [place] to [facility] to undergo cardiac catheterization and KYLAH for suspected endocarditis with Dr. Cortes. Cardiac cath revealed patient had severe calcified LAD stenosis, moderate prox circumflex, moderate distal RCA, mild LV systolic dysfunction. KYLAH was negative for vegetations. After patient had cardiac cath, patient strained for a bowel movement, syncopized and found to be pulseless in V tach. ROSC was achieved after compressions and 1 shock. Patient was then transferred to ICU for further monitoring. Cardiology Dr. Cortes planned for transfer to [place] pending RAYMOND graft over sternotomy. Patient was treated with Metoprolol, ASA, Plavix and was on Heparin drip with daily monitoring of PTT. While evaluated at [place], patient was noted to have MSSA bacteremia and was started on Nafcillin 2g IV on 12/08. ID Dr. Ochoa was consulted who recommended continuation of treatment with Nafcillin for 6 weeks until 01/19/18. Of note, patient complained of back pain, which was suspicious for discitis as per Dr. Ochoa. Patient had a history of ESRD on HD, for which patient continued to received HD treatments here. Nephrology Dr. Garnett was consulted. Patient was noted to have hyperkeratotic lesions of feet, with right transmetatarsal amputation and left 4th digit amputation. Podiatry Dr. Silva was on the case, who recommended multipodus boots while in bed. ID recommended right foot MRI when stable. On discharge, patient was medically stable to be transferred to [place] for further cardiac care. Discharge: Patient is medically stable for transfer to [place] for further cardiac care. Arrangements made by Dr. Cortes. Patient to continue Nafcillin 2g IV from 12/08/17 until 01/19/18 for MSSA bacteremia. Discharge Exam - Head Exam Head Exam: ATRAUMATIC, NORMOCEPHALIC - Eye Exam Eye Exam: EOMI - ENT Exam ENT Exam: Mucous Membranes Moist - Respiratory Exam Respiratory Exam: Clear to PA & Lateral. absent: Rales, Rhonchi, Wheezes, Respiratory Distress, Stridor - Cardiovascular Exam Cardiovascular Exam: REGULAR RHYTHM, +S1, +S2 - GI/Abdominal Exam GI & Abdominal Exam: Normal Bowel Sounds, Soft. absent: Distended, Firm, Guarding, Hernia, Tenderness - Extremities Exam Extremities exam: pedal pulses present Additional comments: no calf tenderness, no pedal edema Hyperkerotic lesions on feet bilaterally Right transmetarsal amputation Left 4th digit amputation Left hand: swelling, tenderness and erythema decreased on dorsum of left hand - Back Exam Additional comments: Midline lumbar tenderness, no skin changes, no rashes, no erythema, no breaks in skin - Neurological Exam Neurological exam: Alert, Oriented x3 - Skin Skin Exam: Dry, Intact, Warm Discharge Plan - Follow Up Plan Condition: GOOD Disposition: Trans to Other Acute Care Hosp
[2017-12-20] MEDS ORDERED: Saccharomyces Boulardi 250 mg Cap PO SCH (18:00)
[2017-12-20 20:24] VITALS: BP 109/49
--- NOTE | 2017-12-20 23:34 | CP.PCM.PN ---
Subjective - Date & Time of Evaluation Date of Evaluation: 12/20/17 Time of Evaluation: 13:00 - Subjective Subjective: SEEN ON RENAL F/U IN ICU SEEN ON HD .. HD ORDERS WERE D/W HD RN WILL GIVE FERRLICIT AND EPO 10.000 ON HD FOR PROBABLE TRANSFER TO [facility] POST HD Objective - Vital Signs/Intake and Output Vital Signs (last 24 hours): Temp Pulse Resp BP Pulse Ox 97.9 F 87 20 109/49 L 96 12/20/17 12:40 12/20/17 12:40 12/20/17 12:40 12/20/17 20:20 12/20/17 12:40 - Labs Labs: 12/20/17 08:38 12/20/17 08:38 PT 14.1 SECONDS (9.7-12.2) H 12/14/17 07:20 INR 1.3 12/14/17 07:20 APTT 59 SECONDS (21-34) H D 12/20/17 05:03 Assessment and Plan - Assessment and Plan (Free Text) Plan: C/O CURRENT CARE FOR TRANSFER TO [facility] AFTER THE HD
[2017-12-21 03:01] VITALS: PULSE 86; TEMP 99.9; O2SAT 99
== END 2017-12-20 22:21 | disposition short-term general hospital (02) | DRG 280 ==
LOC: C.CATHLAB 07:38 → C.9I 17:02 → C.6T 12-20 02:40
PROVIDERS: ADMIT Hospitalist; ATTEND Hospitalist
PROC: 4A023N8 Measurement of Cardiac Sampling and Pressure, Bilateral, Percutaneous Approach (ICD-10-PCS; principal; 2017-12-13)
PROC: B2161ZZ Fluoroscopy of Right and Left Heart using Low Osmolar Contrast (ICD-10-PCS; 2017-12-13)
PROC: B2111ZZ Fluoroscopy of Multiple Coronary Arteries using Low Osmolar Contrast (ICD-10-PCS; 2017-12-13)
PROC: B246ZZ4 Ultrasonography of Right and Left Heart, Transesophageal (ICD-10-PCS; 2017-12-13)
PROC: 5A2204Z Restoration of Cardiac Rhythm, Single (ICD-10-PCS; 2017-12-13)
DX: I21.4 Non-ST elevation (NSTEMI) myocardial infarction (principal); I25.10 Atherosclerotic heart disease of native coronary artery without angina pectoris; I25.84 Coronary atherosclerosis due to calcified coronary lesion; N18.6 End stage renal disease; A41.01 Sepsis due to Methicillin susceptible Staphylococcus aureus; I12.0 Hypertensive chronic kidney disease with stage 5 chronic kidney disease or end stage renal disease; I47.2 Ventricular tachycardia; E11.22 Type 2 diabetes mellitus with diabetic chronic kidney disease; D63.1 Anemia in chronic kidney disease; E11.40 Type 2 diabetes mellitus with diabetic neuropathy, unspecified; E11.51 Type 2 diabetes mellitus with diabetic peripheral angiopathy without gangrene; E87.5 Hyperkalemia; E66.9 Obesity, unspecified; G89.29 Other chronic pain; L85.9 Epidermal thickening, unspecified; M51.37 Other intervertebral disc degeneration, lumbosacral region; Z87.891 Personal history of nicotine dependence; Z99.2 Dependence on renal dialysis; Z86.19 Personal history of other infectious and parasitic diseases; Z89.422 Acquired absence of other left toe(s); Z89.431 Acquired absence of right foot